=== PATIENT | male | born 1950 | race Caucasian/White ===

== ENCOUNTER → 2017-07-02 | Outpatient (CLI) | payer OTHER, MEDICARE ==
[~2017-07-02] MED LIST: AMBUNK PO; ASPI81TA21 PO; BUPR-79 PO; CLX20 PO; FENO145T26 PO; LISI-461 PO; MULT-506 PO
--- NOTE | 2017-07-02 13:59 | PULMONARY FUNCTION TEST ---
Pre-bronchodilator spirometry reveals a mild obstructive ventilatory defect even more pronounced at low lung volumes. There was a modest response to bronchodilator as evidenced by improved flow measured at low lung volumes. This may suggest the presence of early reversible airways disease. Lung volumes demonstrate evidence for significant hyperinflation and air trapping. Diffusion capacity was well within normal limits. Clinical correlation is needed.
== END | disposition home or self-care (01) ==
LOC: C.RC 09:46
PROVIDERS: ATTEND Family Medicine
DX: R06.09 Other forms of dyspnea (principal)

== ENCOUNTER 2017-09-14 10:52 | Inpatient (IN) | payer OTHER, MEDICARE ==
[~2017-09-14] VITALS: Ht 182.9 cm; Wt 99.6 kg
[~2017-09-14 10:52] MED LIST changes: +ASPI-319 PO; -ASPI81TA21 PO
[2017-09-14] MEDS ORDERED: METOPROLOL TARTRATE 1 MG/ML VIAL ONE (11:22)
--- NOTE | 2017-09-14 11:35 | EMERGENCY ROOM VISIT NOTE ---
History Report prepared by Blanka: Elsie Green Under the Supervision of: Dr. Balbina Nicholson M.D. First contact with patient: 11:13 Chief Complaint: PALPITATIONS Stated Complaint: SWEATING, FATIGUE, SOB, PALPITATIONS History of Present Illness The patient is a 67 year old male who presents to the Emergency Room with complaints of sudden palpitations beginning this morning. He also notes that for the past 3 weeks, the muscle underneath his right ear in his neck has been making it difficult for him to sleep due to the pain. He states he has low back pain, dizziness, fatigue, diaphoresis, wobbliness, and SOB but he has had this for the past 3 months. He denies feeling any butterflies in his chest. The patient reports that Dr. Frausto reported that he was in atrial flutter. Source of History: patient Onset: this morning Position: other (heart) Quality: other (palpitations) Timing: other (sudden) Associated Symptoms: + diaphoresis, + neck pain, + SOB, + back pain (low), + fatigue Note: Positive dizziness and wobbliness. Negative butterflies in his chest. Review of Systems See HPI for pertinent positives & negatives. A total of 10 systems reviewed and were otherwise negative. Past Medical & Surgical Medical Problems: (1) High blood pressure High blood pressure Family History Heart disease Kidney disease Seizure disorder Social History Smoking Status: Former Smoker Alcohol Use: occasionally Marital Status: Housing Status: lives with significant other Occupation Status: retired Current/Historical Medications Scheduled Aspirin Enteric Coated (Ecotrin Or Generic), 81 MG PO DAILY Bupropion (Wellbutrin Sr), 150 MG PO BID Citalopram Hydrobromide (Celexa), 1 TAB PO DAILY Lisinopril (Zestril), 10 MG PO DAILY Melatonin (Kp Melatonin), 1 TAB PO HS Metformin Hcl (Glucophage), 500 MG PO BID Miscellaneous Medications Pravastatin (Pravachol ), 20 MG PO Allergies Coded Allergies: No Known Allergies (Verified Allergy, Mild, 12/25/04) Physical Exam Vital Signs Date Time Temp Pulse Resp B/P (MAP) Pulse Ox O2 Delivery O2 Flow Rate FiO2 09/14/17 14:01 97 Room Air 09/14/17 13:42 78 16 122/80 97 Room Air 09/14/17 13:37 75 09/14/17 12:00 82 16 108/75 97 Nasal Cannula 2.0 09/14/17 11:32 88 18 111/60 97 Nasal Cannula 2.0 09/14/17 11:29 96 Room Air 09/14/17 11:25 115 141/71 09/14/17 11:17 133 09/14/17 10:56 36.4 133 18 115/68 97 Room Air Physical Exam Vital signs reviewed. General: Well-appearing male, in no significant distress. HEENT: No scleral icterus, PERRLA, neck supple. Atraumatic. Cardiovascular: Rapid and irregular rhythm. No extra sounds. Pulmonary: Clear to auscultation bilaterally, normal work of breathing. Abdomen: Soft, nontender, nondistended, positive bowel sounds. Musculoskeletal: Atraumatic, no peripheral edema. Discomfort to the left neck with palpation and rotation. No swelling or lymphadenopathy appreciated. Neurologic: Patient awake alert and oriented x 3, full strength in all 4 extremities. Cranial nerves 2 through 12 grossly intact. Skin: Warm, dry, no rash Medical Decision & Procedures ER Provider Diagnostic Interpretation: Radiology results as stated below per my review and radiologist interpretation: LUMBAR SPINE 5 VIEWS CLINICAL HISTORY: Low back pain. Right lower extremity radiculopathy. FINDINGS: 5 views of the lumbar spine are compared to study dated 12/05/2008. The skeletal structures are osteopenic. There is no radiographic evidence of acute fracture or malalignment. Vertebral body height and alignment are maintained throughout the lumbar spine. The transverse and spinous processes appear intact. Anterior and lateral marginal osteophytes are seen throughout. There is moderate disc space narrowing seen at all lumbar levels with multilevel degenerative endplate sclerosis. Mild facet arthropathy is seen in the lower lumbar region. There is no evidence of spondylolysis. The visualized bony pelvis appears intact. Mild sclerotic change is noted involving the sacroiliac joints. No bowel obstruction is seen. Surgical clips project over the left lower quadrant. Mild atherosclerotic calcification is seen in the abdominal aorta. IMPRESSION: 1. There is no acute bony abnormality identified involving the lumbar spine. 2. Osteopenia and spondylotic change as above. Dictated: 09/14/2017 12:53 PM Transcribed: 09/14/2017 1:20 PM [email or web address] Electronically signed by: Piotr Park M.D. 09/14/2017 1:23 PM CHEST 2 VIEWS ROUTINE CLINICAL HISTORY: 67 years-old Male presenting with new onset atrial fib, right-sided lumbar radiculopathy. TECHNIQUE: PA and lateral views of the chest were obtained. COMPARISON: 08/30/2009. FINDINGS: Atherosclerosis of the aortic arch. Cardiac silhouette normal in size. Lungs and pleural spaces clear. Degenerative changes of the thoracic spine. Upper abdomen normal. IMPRESSION: 1. No acute cardiopulmonary disease. Electronically signed by: Prakash Sanchez M.D. 09/14/2017 12:55 PM C-SPINE ROUTINE 4 OR 5 VIEWS CLINICAL HISTORY: Severe right-sided neck pain. COMPARISON STUDY: CT of the cervical spine October 05, 2011. FINDINGS: Alignment of the cervical spine is anatomic. Vertebral body heights are maintained. There is no fracture or suspicious lesion. The inferior endplate of C7 is slightly obscured. There is moderate disc space narrowing and osteophytosis at C3-C4, C4-C5 and C5-C6 and C6-C7. Moderate to severe multilevel bony neural foraminal narrowing is noted, most pronounced at the right C4-C5 and C5-C6 neural foramen. IMPRESSION: 1. No acute cervical spine fracture or subluxation. 2. Moderate multilevel disc space narrowing and osteophytosis and moderate to severe multilevel bony neural foraminal narrowing, as described above. Electronically signed by: Nate Payan M.D. 09/14/2017 12:56 PM Laboratory Results Test 09/14/17 11:14 09/14/17 12:45 Prothrombin Time 10.7 SECONDS (9.0-12.0) Prothromb Time International Ratio 1.0 (0.9-1.1) Activated Partial Thromboplast Time 25.8 SECONDS (21.0-31.0) Partial Thromboplastin Ratio 1.0 Magnesium Level 1.9 mg/dl (1.8-2.4) Total Bilirubin 1.3 mg/dl (0.2-1) Direct Bilirubin 0.2 mg/dl (0-0.2) Aspartate Amino Transf (AST/SGOT) 17 U/L (15-37) Alanine Aminotransferase (ALT/SGPT) 20 U/L (12-78) Alkaline Phosphatase 59 U/L (45-117) Total Protein 7.1 gm/dl (6.4-8.2) Albumin 3.5 gm/dl (3.4-5.0) Thyroid Stimulating Hormone (TSH) 2.560 uIu/ml (0.300-4.500) Hepatitis C Antibody Screen NEG (NEG) Urine Color YELLOW Urine Appearance CLEAR (CLEAR) Urine pH 5.0 (4.5-7.5) Urine Specific [place] 1.020 (1.000-1.030) Urine Protein NEG (NEG) Urine Glucose (UA) 3+ (NEG) Urine Ketones NEG (NEG) Urine Occult Blood NEG (NEG) Urine Nitrite NEG (NEG) Urine Bilirubin NEG (NEG) Urine Urobilinogen NEG (NEG) Urine Leukocyte Esterase TRACE (NEG) Urine WBC (Auto) 1-5 /hpf (0-5) Urine RBC (Auto) 0-4 /hpf (0-4) Urine Hyaline Casts (Auto) 1-5 /lpf (0-5) Urine Epithelial Cells (Auto) 0-5 /lpf (0-5) Urine Bacteria (Auto) NEG (NEG) Laboratory results per my review. Medications Administered Medications (Trade) Dose Ordered Sig/Lili Route Start Time Stop Time Status Last Admin Dose Admin Metoprolol Tartrate (Lopressor Iv) 5 mg STK-MED ONCE .ROUTE 09/14/17 11:22 09/14/17 11:23 DC 09/14/17 11:25 5 MG Sodium Chloride 1,000 ml @ 125 mls/hr Q8H STAT IV 09/14/17 11:51 09/14/17 16:56 DC 09/14/17 11:51 125 MLS/HR Acetaminophen/ Hydrocodone Bitart ([place] 7.5/325 Tab) 1 tab NOW STAT PO 09/14/17 13:51 09/14/17 13:53 DC 09/14/17 13:51 1 TAB Cyclobenzaprine HCl (Flexeril Tab) 5 mg NOW STAT PO 09/14/17 13:51 09/14/17 13:53 DC 09/14/17 13:51 5 MG Acetaminophen (Tylenol Tab) 650 mg Q4H PRN PO 09/14/17 15:00 10/14/17 14:59 09/15/17 08:14 650 MG Miscellaneous Information (Dc All Previously Ordered Diabetes Meds) 1 ea ONE ONCE N/A 09/14/17 15:00 09/14/17 15:53 DC 09/14/17 19:35 1 EA ECG Per My Interpretation Indication: palpitations Rate (beats per minute): 127 Rhythm: atrial flutter Findings: other (variable AV block, ST and T wave abnormality, QTC is 470 ) ED Course 1122: Ordered Metoprolol Tartrate 5 mg IV 1124: Past medical records reviewed. The patient was evaluated in room C2. A complete history and physical examination was performed. 1151: Ordered Sodium Chloride 1000 ml @ 125 mls/hr IV 1351: Ordered Flexeril Tab 5 mg PO, Hydrocodone Bitart/Acetaminophen 1 tab PO 1422: I reviewed the patient's case with Dr. Ebony Ordonez [facility] Hospitalist. She will evaluate the patient for further management. Medical Decision Differential diagnosis: Etiologies such as premature contractions, electrolyte abnormality, cardiac dysrhythmia, thyroid dysfunction, pulmonary embolism, infection, gastrointestinal, as well as others were entertained. This patient was evaluated and appeared to be in no significant distress. IV access was obtained and laboratory work was drawn. The patient was placed on the cardiac technician and found to be in rapid atrial flutter. EKG was performed to confirm this suspicion. Patient was given 5 mg of IV metoprolol with good rate control. Laboratory work is fairly unrevealing including cardiac enzymes. Chest x-ray was performed and reveals no evidence of consolidation or significant vascular congestion. Cervical and lumbar x-rays were performed and are read as above. There is significant degenerative change of the cervical spine which is likely contributing to the patient's discomfort. I see no obvious source for infection at this time. Patient remained fairly rate controlled with just and he will be evaluated for further management. The initial dose of IV metoprolol. Case was discussed with the hospitalist service patient and are aware of the plan and agree. Medication Reconcilliation Current Medication List: was personally reviewed by me Blood Pressure Screening Patient's blood pressure: Normal blood pressure Blood pressure disposition: Did not require urgent referral Consults Time Called: 1416 Consulting Physician: Dr. Ebony Ordonez [facility] Hospitalist Returned Call: [phone] I reviewed the patient's case with Dr. Ebony Ordonez, [facility] Hospitalist. She will evaluate the patient for further management. Impression Primary Impression: New onset atrial flutter Additional Impression: Cervical radiculopathy due to degenerative joint disease of spine Scribe Attestation The scribe's documentation has been prepared under my direction and personally reviewed by me in its entirety. I confirm that the note above accurately reflects all work, treatment, procedures, and medical decision making performed by me. Departure Information Dispostion Being Evaluated By Hospitalist (Dr. Ebony Ordonez, [facility] Hospitalist) Referrals Alaina Frausto M.D. (PCP) Patient Instructions My [facility] Problem Qualifiers
[2017-09-14] MEDS ORDERED: SODIUM CHLORIDE 0.9% 1000ML 1,000 ML IV STA (11:51)
[2017-09-14 12:03] LABS: BASO % 0.8 %; BASO ABS # 0.05 K/uL (0-0.2); EOS % 1.5 %; HEMATOCRIT 42.3 % (42-52); HEMOGLOBIN 15.5 g/dL (14.0-18.0); IG# 0.01 K/uL (0.00-0.02); LYMPH ABS # 1.51 K/uL (1.2-3.4); MEAN CELL VOLUME 90.2 fL (80-100); MEAN CORPUSCULAR HGB CONC 36.6 g/dl (32-36); MONO % 6.6 %; MONO ABS # 0.43 K/uL (0.11-0.59); NEUT % 67.9 %; NEUT ABS # 4.46 K/uL (1.4-6.5); PLATELET COUNT 225 K/uL (130-400); RED CELL DISTRIBUTION WIDTH SD 42.3 fL (36.4-46.3); WHITE BLOOD COUNT 6.56 K/uL (4.8-10.8)
[2017-09-14] MEDS ORDERED: GLC/500 PO (12:07)
[2017-09-14] MEDS ORDERED: CITA10TA8 PO (12:07)
[2017-09-14] MEDS ORDERED: PRAV20TA PO (12:07)
[2017-09-14] MEDS ORDERED: MELA1TAB5 PO (12:07)
[2017-09-14 12:25] LABS: ALBUMIN 3.5 gm/dl (3.4-5.0); ALKALINE PHOSPHATASE 59 U/L (45-117); ALT/SGPT 20 U/L (12-78); AST/SGOT 17 U/L (15-37); BLOOD UREA NITROGEN 15 mg/dl (7-18); CALCIUM 8.5 mg/dl (8.5-10.1); CARBON DIOXIDE 24 mmol/L (21-32); CREATININE 1.31 mg/dl (0.60-1.40); GLUCOSE 233 mg/dl (70-99); POTASSIUM 4.1 mmol/L (3.5-5.1); SODIUM 137 mmol/L (136-145); TOTAL PROTEIN 7.1 gm/dl (6.4-8.2)
--- NOTE | 2017-09-14 12:56 | DIAGNOSTIC IMAGING REPORT ---
CHEST 2 VIEWS ROUTINE CLINICAL HISTORY: 67 years-old Male presenting with new onset atrial fib, right-sided lumbar radiculopathy. TECHNIQUE: PA and lateral views of the chest were obtained. COMPARISON: 08/30/2009. FINDINGS: Atherosclerosis of the aortic arch. Cardiac silhouette normal in size. Lungs and pleural spaces clear. Degenerative changes of the thoracic spine. Upper abdomen normal. IMPRESSION: 1. No acute cardiopulmonary disease. Electronically signed by: Prakash Sanchez M.D. 09/14/2017 12:55 PM Dictated Date/Time: 09/14/2017 12:52 PM
--- NOTE | 2017-09-14 12:58 | DIAGNOSTIC IMAGING REPORT ---
C-SPINE ROUTINE 4 OR 5 VIEWS CLINICAL HISTORY: Severe right-sided neck pain. COMPARISON STUDY: CT of the cervical spine October 05, 2011. FINDINGS: Alignment of the cervical spine is anatomic. Vertebral body heights are maintained. There is no fracture or suspicious lesion. The inferior endplate of C7 is slightly obscured. There is moderate disc space narrowing and osteophytosis at C3-C4, C4-C5 and C5-C6 and C6-C7. Moderate to severe multilevel bony neural foraminal narrowing is noted, most pronounced at the right C4-C5 and C5-C6 neural foramen. IMPRESSION: 1. No acute cervical spine fracture or subluxation. 2. Moderate multilevel disc space narrowing and osteophytosis and moderate to severe multilevel bony neural foraminal narrowing, as described above. Electronically signed by: Nate Payan M.D. 09/14/2017 12:56 PM Dictated Date/Time: 09/14/2017 12:52 PM
--- NOTE | 2017-09-14 13:21 | DIAGNOSTIC IMAGING REPORT ---
LUMBAR SPINE 5 VIEWS CLINICAL HISTORY: Low back pain. Right lower extremity radiculopathy. FINDINGS: 5 views of the lumbar spine are compared to study dated 12/05/2008. The skeletal structures are osteopenic. There is no radiographic evidence of acute fracture or malalignment. Vertebral body height and alignment are maintained throughout the lumbar spine. The transverse and spinous processes appear intact. Anterior and lateral marginal osteophytes are seen throughout. There is moderate disc space narrowing seen at all lumbar levels with multilevel degenerative endplate sclerosis. Mild facet arthropathy is seen in the lower lumbar region. There is no evidence of spondylolysis. The visualized bony pelvis appears intact. Mild sclerotic change is noted involving the sacroiliac joints. No bowel obstruction is seen. Surgical clips project over the left lower quadrant. Mild atherosclerotic calcification is seen in the abdominal aorta. IMPRESSION: 1. There is no acute bony abnormality identified involving the lumbar spine. 2. Osteopenia and spondylotic change as above. Dictated: 09/14/2017 12:53 PM Transcribed: 09/14/2017 1:20 PM [email or web address] Electronically signed by: Piotr Park M.D. 09/14/2017 1:23 PM Dictated Date/Time: 09/14/2017 12:53 PM
[2017-09-14] MEDS ORDERED: HYDROCODONE/ACETAMINOPHEN 7.5/325MG TAB PO STA (13:51)
[2017-09-14] MEDS ORDERED: CYCLOBENZAPRINE HCL 10 MG TAB PO STA (13:51)
[2017-09-14 14:01] VITALS: O2SAT 97; BMI 29.9
[2017-09-14] MEDS ORDERED: ONDANSETRON INJ 2 MG/ML 2 ML VIAL IV PRN (15:00)
[2017-09-14] MEDS ORDERED: DC ALL PREVIOUSLY ORDERED DIABETES MEDS ONE (15:00)
[2017-09-14] MEDS ORDERED: GLUCOSE 40% GEL 15 GM TUBE PO PRN (15:00)
[2017-09-14] MEDS ORDERED: GLUCOSE 10 TABS/TUBE PO PRN (15:00)
[2017-09-14] MEDS ORDERED: DEXTROSE 50% 50 ML SYR IV PRN (15:00)
[2017-09-14] MEDS ORDERED: CARBOHYDRATES FOR HYPOGLYCEMIA PO PRN (15:00)
[2017-09-14] MEDS ORDERED: GLUCAGON FOR INJ 1 MG VIAL SQ PRN (15:00)
--- NOTE | 2017-09-14 15:30 | History and Physical ---
History & Physical Date & Time of Service: September 14, 2017 at 15:05 Chief Complaint: Sweating, Fatigue, Sob, Palpitations Primary Care Physician: Alaina Frausto M.D. History of Present Illness Source: patient Patient is a pleasant 67yo male with history of newly diagnosed DM, HTN, HLP presenting today with new onset atrial flutter. Patient states that this morning he was standing at the sink doing dishes when he had a sudden wave of fatigue/SOB/dizziness and lethargy. No associated CP, no LOC/syncope. Patient had a routine appointment with his PCP this AM during which an EKG was obtained that confirmed new onset atrial flutter. The patient was transferred to [facility] for further management. Patient presently complaining only of fatigue. No CP/ palpitations or SOB. No dizziness or presyncope. ER Course: [place] 7.5mg, Flexeril 5mg, Metoprolol 5mg IV Past Medical/Surgical History Medical Problems: 1. Diabetes - newly diagnosed, AIC=5.6 2. HTN 3. HLP 4. Diverticulitis 5. CHRISTIAN 6. Low back pain, neck pain Surgical History: Colostomy for bowel perforation s/p takedown Exploratory laparotomy Left wrist surgery Family History Heart disease Kidney disease Seizure disorder Social History Smoking Status: Former Smoker Smokeless Tobacco Use: No Alcohol Use: socially Drug Use: none Marital Status: Housing status: lives with significant other Occupational Status: retired Immunizations History of Influenza Vaccine: Yes Influenza Vaccine Date: Mar 13, 2005 History of Tetanus Vaccine?: Yes Tetanus Immunization Date: Aug 11, 2000 History of Pneumococcal: No History of Hepatitis B Vaccine: No Allergies Coded Allergies: No Known Allergies (Verified Allergy, Mild, 12/25/04) Home Medications Scheduled Aspirin Enteric Coated (Ecotrin Or Generic), 81 MG PO DAILY Bupropion (Wellbutrin Sr), 150 MG PO BID Citalopram Hydrobromide (Celexa), 1 TAB PO DAILY Lisinopril (Zestril), 10 MG PO DAILY Melatonin (Kp Melatonin), 1 TAB PO HS Metformin Hcl (Glucophage), 500 MG PO BID Miscellaneous Medications Pravastatin (Pravachol ), 20 MG PO Review of Systems Constitutional: + fatigue, No fever, No chills, No weight loss Eyes: No worsening of vision, No diplopia ENT: No hearing loss, No sore throat, No trouble swallowing Respiratory: No cough, No shortness of breath, No dyspnea on exertion Cardiovascular: No chest pain, No orthopnea, No edema, No palpitations Abdomen: No pain, No nausea, No vomiting, No diarrhea, No constipation Musculoskeletal: + joint pain, + muscle pain Genitourinary - Male: No hematuria, No dysuria Neurologic: No weakness Endocrine: + fatigue Hematologic / Lymphatic: No abnormal bleeding/bruising, No clotting problems Integumentary: No rash, No itch Physical Exam Vital Signs Date Time Temp Pulse Resp B/P (MAP) Pulse Ox O2 Delivery O2 Flow Rate FiO2 09/14/17 14:01 97 Room Air 09/14/17 13:42 78 16 122/80 97 Room Air 09/14/17 13:37 75 09/14/17 12:00 82 16 108/75 97 Nasal Cannula 2.0 09/14/17 11:32 88 18 111/60 97 Nasal Cannula 2.0 09/14/17 11:29 96 Room Air 09/14/17 11:25 115 141/71 09/14/17 11:17 133 09/14/17 10:56 36.4 133 18 115/68 97 Room Air General Appearance: WD/WN, no apparent distress Head: normocephalic, atraumatic Eyes: normal inspection, PERRL, EOMI, sclerae normal ENT: normal ENT inspection, pharynx normal Neck: supple, no adenopathy, thyroid normal, no JVD, no carotid bruits, trachea midline Respiratory/Chest: chest non-tender, lungs clear, normal breath sounds, no respiratory distress, no accessory muscle use Cardiovascular: no edema, no gallop, no JVD, no murmur, normal peripheral pulses, + irregularly irregular Abdomen/GI: normal bowel sounds, non tender, soft, no organomegaly Back: normal inspection Extremities/Musculoskelatal: normal inspection, no calf tenderness, normal capillary refill, no pedal edema Neurologic/Psych: no motor/sensory deficits, alert, oriented x 3 Skin: normal color, warm/dry, no rash Diagnostics Laboratory Results Results Past 24 Hours Test 09/14/17 11:14 09/14/17 12:45 09/14/17 14:16 Range/Units White Blood Count 6.56 4.8-10.8 K/uL Red Blood Count 4.69 4.7-6.1 M/uL Hemoglobin 15.5 14.0-18.0 g/dL Hematocrit 42.3 42-52 % Mean Corpuscular Volume 90.2 80-100 fL Mean Corpuscular Hemoglobin 33.0 25-34 pg Mean Corpuscular Hemoglobin Concent 36.6 32-36 g/dl Platelet Count 225 130-400 K/uL Mean Platelet Volume 10.0 7.4-10.4 fL Neutrophils (%) (Auto) 67.9 % Lymphocytes (%) (Auto) 23.0 % Monocytes (%) (Auto) 6.6 % Eosinophils (%) (Auto) 1.5 % Basophils (%) (Auto) 0.8 % Neutrophils # (Auto) 4.46 1.4-6.5 K/uL Lymphocytes # (Auto) 1.51 1.2-3.4 K/uL Monocytes # (Auto) 0.43 0.11-0.59 K/uL Eosinophils # (Auto) 0.10 0-0.5 K/uL Basophils # (Auto) 0.05 0-0.2 K/uL RDW Standard Deviation 42.3 36.4-46.3 fL RDW Coefficient of Variation 13.0 11.5-14.5 % Immature Granulocyte % (Auto) 0.2 % Immature Granulocyte # (Auto) 0.01 0.00-0.02 K/uL Sodium Level 137 136-145 mmol/L Potassium Level 4.1 3.5-5.1 mmol/L Chloride Level 104 98-107 mmol/L Carbon Dioxide Level 24 21-32 mmol/L Anion Gap 9.0 3-11 mmol/L Blood Urea Nitrogen 15 7-18 mg/dl Creatinine 1.31 0.60-1.40 mg/dl Est Creatinine Clear Calc Drug Dose 65.2 ml/min Estimated GFR () 63.9 Estimated GFR (Non- 55.2 BUN/Creatinine Ratio 11.5 10-20 Random Glucose 233 70-99 mg/dl Calcium Level 8.5 8.5-10.1 mg/dl Magnesium Level 1.9 1.8-2.4 mg/dl Total Bilirubin 1.3 0.2-1 mg/dl Direct Bilirubin 0.2 0-0.2 mg/dl Aspartate Amino Transf (AST/SGOT) 17 15-37 U/L Alanine Aminotransferase (ALT/SGPT) 20 12-78 U/L Alkaline Phosphatase 59 45-117 U/L Troponin I < 0.015 0-0.045 ng/ml Total Protein 7.1 6.4-8.2 gm/dl Albumin 3.5 3.4-5.0 gm/dl Thyroid Stimulating Hormone (TSH) 2.560 0.300-4.500 uIu/ml Urine Color YELLOW Urine Appearance CLEAR CLEAR Urine pH 5.0 4.5-7.5 Urine Specific [place] 1.020 1.000-1.030 Urine Protein NEG NEG Urine Glucose (UA) 3+ NEG Urine Ketones NEG NEG Urine Occult Blood NEG NEG Urine Nitrite NEG NEG Urine Bilirubin NEG NEG Urine Urobilinogen NEG NEG Urine Leukocyte Esterase TRACE NEG Urine WBC (Auto) 1-5 0-5 /hpf Urine RBC (Auto) 0-4 0-4 /hpf Urine Hyaline Casts (Auto) 1-5 0-5 /lpf Urine Epithelial Cells (Auto) 0-5 0-5 /lpf Urine Bacteria (Auto) NEG NEG Diagnostic Radiology CHEST 2 VIEWS ROUTINE CLINICAL HISTORY: 67 years-old Male presenting with new onset atrial fib, right-sided lumbar radiculopathy. TECHNIQUE: PA and lateral views of the chest were obtained. COMPARISON: 08/30/2009. FINDINGS: Atherosclerosis of the aortic arch. Cardiac silhouette normal in size. Lungs and pleural spaces clear. Degenerative changes of the thoracic spine. Upper abdomen normal. IMPRESSION: 1. No acute cardiopulmonary disease. Electronically signed by: Prakash Sanchez M.D. 09/14/2017 12:55 PM Dictated Date/Time: 09/14/2017 12:52 PM C-SPINE ROUTINE 4 OR 5 VIEWS CLINICAL HISTORY: Severe right-sided neck pain. COMPARISON STUDY: CT of the cervical spine October 05, 2011. FINDINGS: Alignment of the cervical spine is anatomic. Vertebral body heights are maintained. There is no fracture or suspicious lesion. The inferior endplate of C7 is slightly obscured. There is moderate disc space narrowing and osteophytosis at C3-C4, C4-C5 and C5-C6 and C6-C7. Moderate to severe multilevel bony neural foraminal narrowing is noted, most pronounced at the right C4-C5 and C5-C6 neural foramen. IMPRESSION: 1. No acute cervical spine fracture or subluxation. 2. Moderate multilevel disc space narrowing and osteophytosis and moderate to severe multilevel bony neural foraminal narrowing, as described above. Electronically signed by: Nate Payan M.D. 09/14/2017 12:56 PM LUMBAR SPINE 5 VIEWS CLINICAL HISTORY: Low back pain. Right lower extremity radiculopathy. FINDINGS: 5 views of the lumbar spine are compared to study dated 12/05/2008. The skeletal structures are osteopenic. There is no radiographic evidence of acute fracture or malalignment. Vertebral body height and alignment are maintained throughout the lumbar spine. The transverse and spinous processes appear intact. Anterior and lateral marginal osteophytes are seen throughout. There is moderate disc space narrowing seen at all lumbar levels with multilevel degenerative endplate sclerosis. Mild facet arthropathy is seen in the lower lumbar region. There is no evidence of spondylolysis. The visualized bony pelvis appears intact. Mild sclerotic change is noted involving the sacroiliac joints. No bowel obstruction is seen. Surgical clips project over the left lower quadrant. Mild atherosclerotic calcification is seen in the abdominal aorta. IMPRESSION: 1. There is no acute bony abnormality identified involving the lumbar spine. 2. Osteopenia and spondylotic change as above. Dictated: 09/14/2017 12:53 PM Transcribed: 09/14/2017 1:20 PM [place] Electronically signed by: Piotr Park M.D. 09/14/2017 1:23 PM EKG The study demonstrates atrial flutter with variable block, possible ST changes. Impression Assessment and Plan 67yo male with new onset atrial flutter 1. Atrial flutter - new onset, presently rate controlled and asymptomatic, hemodynamically stable s/p Metoprolol 5mg IV administered in ER. Patient reports similar episodes of fatigue/SOB and dizziness over the past 6-8 months that have become more frequent and longer lasting recently. I suspect these events were episodes of PAF/Flutter. -Observation with telemetry -Trend cardiac enzymes x 3 sets -TSH and electrolytes WNL -Check 2D echocardiogram -Metoprolol 25mg po BID, will increase as needed for rate control and transition to XL for discharge if appropriate rate control -Anticoagulation with Xarelto - patient denies bleeding issues, no history of frequent falls, no contraindications to anticoagulation -Consultation with Cardiology - patients is know to Dr. Moreno and he is requesting that he be seen by him 2. Hypertension - patient presently normotensive. -Continue Lisinopril -Continue to monitor 3. Diabetes - newly diagnosed, well controlled with diet and Metformin 500mg po BID -hold Metformin while NPO -ISS with blood sugar checks qPM and qAC 4. Hyperlipidemia -Continue Pravastatin 5. Neck pain - imaging suggestive of OA, no neurologic defecits -Pain control with Tylenol and Flexeril PRN -Ice pack and heating pad 6. F/E/N - heplock, monitor electrolytes and replete as needed, AHA/Diabetic diet as tolerated 7. Code - Full per discussion with patient 8. Dispo - Observation with telemetry Advanced Directives Existing Living Will: No Existing Power of Size Worker: No Resuscitation Status FULL VTE Prophylaxis Will order VTE Prophylaxis: No Reason for no VTE drug order: Treatment not indicated Reason no Mechanical VTE Order: Treatment not indicated
[2017-09-14 15:43] LABS: PTT PATIENT 25.8 SECONDS (21.0-31.0)
[2017-09-14] MEDS ORDERED: IV FLUIDS COMPLETED PRN (16:00)
[2017-09-14 16:10] VITALS: Ht 182.9 cm; Wt 99.6 kg
[2017-09-14] MEDS ORDERED: RIVAROXABAN 10 MG TAB PO SCH (16:15)
--- NOTE | 2017-09-14 16:31 | ECHOCARDIOGRAM REPORT ---
*NOTICE TO RECEIVING CONSTITUTION PARTY AGENCY This information is strictly Confidential and protected under [place] law. [place] law prohibits you from making any further disclosure of this information unless further disclosure is expressly permitted by the written consent of the person to whom it pertains or is authorized by law. A general authorization for the release of medical or other information is not sufficient for this purpose. Hospital accepts no responsibility if the information is made available to any other person, INCLUDING THE PATIENT. Interpretation Summary * Name: JOHN TOMLIN Study Date: 09/14/2017 03:22 PM BP: 122/80 mmHg * Patient Location: [facility] HR: 75 * : 1950 (M/d/yyyy) Gender: Male Height: 71 in * Age: 67 yrs Ethnicity: CA Weight: 220 lb * Ordering Physician: Ebony Ordonez * Referring Physician: Alaina Frausto * Performed By: Tracy Mckenna RDCS * * Reason For Study: A-FLUTTER * BSA: 2.2 m2 * -- Conclusions -- * 1. Normal LV size. Borderline concentric LVH. * 2. Normal LV systolic function. LVEF 55-60 %. No regional wall motion abnormalities. * 3. Normal RV size and function. * 4. Trace mitral regurgitation * 5. Mild left atrial enlargement * 6. Compared with prior study on 03/21/2015: Atrial fibrillation is, no other significant changes. Procedure Details * A complete two-dimensional transthoracic echocardiogram was performed (2D, M-mode, Doppler and color flow Doppler). Left Ventricle * The left ventricle is grossly normal size. * There is borderline concentric left ventricular hypertrophy. * Ejection Fraction = 60-65%. * No regional wall motion abnormalities noted. Right Ventricle * The right ventricle is not well visualized. * The right ventricle is grossly normal size. * The right ventricular systolic function is normal. Atria * The left atrium is mildly dilated. * Right atrial size is normal. * No ASD detected; PFO is not assessed. Mitral Valve * The mitral valve is grossly normal. * There is no mitral valve stenosis. * There is trace mitral regurgitation. Tricuspid Valve * Significant tricuspid regurgitation is absent. Aortic Valve * The aortic valve opens well. * No hemodynamically significant valvular aortic stenosis. * There is no significant aortic regurgitation. Pulmonic Valve * The pulmonary valve is inadequately visualized, but the Doppler data is adequate for interpretation. * Pulmonic stenosis is absent. * There is no significant pulmonary regurgitation. Great Vessels * The aortic root and proximal ascending aorta are normal sized. Pericardium/Pleural * There is no pericardial effusion. MMode 2D Measurements and Calculations IVSd 1.2 cm IVSs 1.6 cm LVIDd 4.2 cm LVIDs 2.5 cm LVPWd 1.1 cm LVPWs 1.9 cm IVS/LVPW 1.1 FS 41.3 % EDV(Teich) 78.8 ml ESV(Teich) 21.7 ml EF(Teich) 72.5 % EDV(cubed) 74.3 ml ESV(cubed) 15.1 ml EF(cubed) 79.7 % % IVS thick 35.6 % % LVPW thick 75.1 % LV mass(C)d 165.4 grams LV mass(C)dI 75.3 grams/m\S\2 LV mass(C)s 166.3 grams LV mass(C)sI 75.7 grams/m\S\2 SV(Teich) 57.1 ml SI(Teich) 26.0 ml/m\S\2 SV(cubed) 59.3 ml SI(cubed) 27.0 ml/m\S\2 ACS 1.7 cm LA dimension 4.2 cm asc Aorta Diam 3.4 cm LVOT diam 2.0 cm LVOT area 3.0 cm\S\2 LVAd ap4 35.9 cm\S\2 LVLd ap4 8.2 cm EDV(MOD-sp4) 131.3 ml EDV(sp4-el) 133.2 ml LVAs ap4 17.4 cm\S\2 LVLs ap4 6.9 cm ESV(MOD-sp4) 40.0 ml ESV(sp4-el) 37.2 ml EF(MOD-sp4) 69.5 % EF(sp4-el) 72.1 % LVAd ap2 36.0 cm\S\2 LVLd ap2 7.7 cm EDV(MOD-sp2) 143.8 ml EDV(sp2-el) 142.3 ml LVAs ap2 18.3 cm\S\2 LVLs ap2 6.5 cm ESV(MOD-sp2) 45.8 ml ESV(sp2-el) 44.1 ml EF(MOD-sp2) 68.1 % EF(sp2-el) 69.0 % LVLd %diff -6.28 % EDV(MOD-bp) 140.8 ml LVLs %diff -6.83 % ESV(MOD-bp) 43.9 ml EF(MOD-bp) 68.8 % SV(MOD-sp4) 91.2 ml SI(MOD-sp4) 41.5 ml/m\S\2 SV(MOD-sp2) 98.0 ml SI(MOD-sp2) 44.6 ml/m\S\2 SV(MOD-bp) 96.9 ml SI(MOD-bp) 44.1 ml/m\S\2 SV(sp4-el) 96.0 ml SI(sp4-el) 43.7 ml/m\S\2 SV(sp2-el) 98.1 ml SI(sp2-el) 44.7 ml/m\S\2 Doppler Measurements and Calculations MV E max yuri 88.4 cm/sec MV A max yuri 43.7 cm/sec MV E/A 2.0 MV dec time 0.18 sec Ao V2 max 124.6 cm/sec Ao max PG 6.2 mmHg Ao max PG (full) 3.2 mmHg CAMRYN(V,A) 2.1 cm\S\2 CAMRYN(V,D) 2.1 cm\S\2 LV V1 max PG 3.0 mmHg LV V1 max 86.8 cm/sec PA V2 max 63.1 cm/sec PA max PG 1.6 mmHg TR max yuri 198.1 cm/sec
[2017-09-14 17:00] VITALS: BP 118/80; PULSE 74; TEMP 36.5; O2SAT 96
[2017-09-14] MEDS: ACETAMINOPHEN 325 MG TAB PO PRN (17:58)
[2017-09-14] MEDS ORDERED: NURSING VERBAL MED ORDER ONE (18:45)
[2017-09-14] MEDS: INSULIN ASPART 100 UNITS/ML 3 ML PEN SC SCH ×2 (19:06→21:34)
[2017-09-14 19:37] VITALS: BP 137/88; PULSE 78; TEMP 36.8; O2SAT 97
[2017-09-14 20:00] VITALS: O2SAT 96
[2017-09-14] MEDS ORDERED: ZOLPIDEM TARTRATE 5 MG TAB PO PRN (20:15)
[2017-09-14] MEDS ORDERED: NON-FORMULARY MEDICATION (Melatonin (Kp Melatonin) 1 TAB) PO SCH (21:00)
[2017-09-14] MEDS: METOPROLOL TARTRATE 50 MG TAB PO SCH (21:28)
[2017-09-14] MEDS: BuPROPion SR 150 MG TABCR PO SCH (21:28)
[2017-09-14 23:54] VITALS: BP 123/86; PULSE 75; TEMP 36.7; O2SAT 97
[2017-09-15 04:01] VITALS: BP 125/84; PULSE 75; TEMP 36.4; O2SAT 97
[2017-09-15 06:59] LABS: BASO % 1.1 %; BASO ABS # 0.08 K/uL (0-0.2); EOS % 2.8 %; EOS ABS # 0.21 K/uL (0-0.5); HEMATOCRIT 44.4 % (42-52); HEMOGLOBIN 16.3 g/dL (14.0-18.0); IG# 0.02 K/uL (0.00-0.02); LYMPH % 29.9 %; LYMPH ABS # 2.22 K/uL (1.2-3.4); MEAN CELL VOLUME 90.8 fL (80-100); MEAN CORPUSCULAR HEMOGLOBIN 33.3 pg (25-34); MEAN CORPUSCULAR HGB CONC 36.7 g/dl (32-36); MEAN PLATELET VOLUME 9.6 fL (7.4-10.4); MONO % 7.8 %; MONO ABS # 0.58 K/uL (0.11-0.59); NEUT % 58.1 %; NEUT ABS # 4.31 K/uL (1.4-6.5); PLATELET COUNT 232 K/uL (130-400); RED CELL DISTRIBUTION WIDTH CV 13.1 % (11.5-14.5); RED CELL DISTRIBUTION WIDTH SD 43.3 fL (36.4-46.3); WHITE BLOOD COUNT 7.42 K/uL (4.8-10.8)
[2017-09-15 07:09] VITALS: BP 126/84; PULSE 75; TEMP 37; O2SAT 98
[2017-09-15 07:37] LABS: BLOOD UREA NITROGEN 14 mg/dl (7-18); CALCIUM 8.9 mg/dl (8.5-10.1); CARBON DIOXIDE 28 mmol/L (21-32); CREATININE 1.25 mg/dl (0.60-1.40); GLUCOSE 124 mg/dl (70-99); POTASSIUM 4.5 mmol/L (3.5-5.1); SODIUM 139 mmol/L (136-145)
[2017-09-15] MEDS: INSULIN ASPART 100 UNITS/ML 3 ML PEN SC SCH ×2 (08:06→11:00)
[2017-09-15] MEDS: BuPROPion SR 150 MG TABCR PO SCH (08:08)
[2017-09-15] MEDS: METOPROLOL TARTRATE 50 MG TAB PO SCH (08:09)
[2017-09-15] MEDS: ACETAMINOPHEN 325 MG TAB PO PRN (08:14)
[2017-09-15] MEDS ORDERED: CYCLOBENZAPRINE HCL 5 MG TAB PO SCH (09:00)
[2017-09-15] MEDS ORDERED: LISINOPRIL 10 MG TAB PO SCH (09:00)
[2017-09-15] MEDS ORDERED: CITALOPRAM 20 MG TAB PO SCH (09:00)
[2017-09-15] MEDS ORDERED: PRAVASTATIN SOD 20 MG TAB PO SCH (09:00)
[2017-09-15] MEDS ORDERED: ASPIRIN 81 MG ECTAB PO SCH (09:00)
--- NOTE | 2017-09-15 10:54 | Cardiology Consultation ---
Cardiology Consultation Date of Consultation: September 15, 2017. Requesting Physician: José Luis Reason for Consultation: Atrial flutter Pt evaluation today including: conversation w/ patient, physical exam, lab review, review of studies, review of inpatient medication list, conversation w/ attending History of Present Illness This is a very pleasant 67-year-old gentleman with a history of hypertension, hyperlipidemia and at least prediabetes who I know from taking care of his common-law . He does not have a history of atrial arrhythmias to his knowledge, however he has had a year to year and a half of feeling fatigued and increased short of breath with exertion, but has been evaluated in that time for various things and almost certainly was not in atrial fibrillation for that length of time. He had a distinct change in his symptoms on the morning of 09/14, he felt a wave of fatigue, lightheadedness and shortness of breath occurring while washing dishes that morning. He went upstairs, the symptoms did not resolve and he happened to have an appointment with his family physician that day who observed that he was in atrial flutter and sent him to the ER. In the emergency room he was noted to be in atrial flutter with a rapid heart rate, he was treated with Xarelto which was started on the evening of September 14, 2017 (within 12 hours of presumed onset) and he was started on metoprolol. At the time of my evaluation he feels quite well. He has a little bit of shortness of breath, but does not feel much different than he has recently. I had him walk around the [place] with me and his heart rate did not increase significantly and he felt quite well and was walking briskly. He has not had any chest discomfort, he does not have orthopnea or PND. An echocardiogram shows some left ventricular hypertrophy but normal left ventricular function and no valvular abnormalities. He is having no bleeding after 1 dose of Xarelto. Past Medical/Surgical History (1) Cervical radiculopathy due to degenerative joint disease ofspine (2) High blood pressure Family History Heart disease Kidney disease Seizure disorder Social History Smoking Status: Former Smoker History of Alcohol Use: No Review of Systems Constitutional: No fever, No weight loss, No weakness Respiratory: + dyspnea on exertion, No cough, No wheezing, No shortness of breath Cardiac: + see HPI, No chest pain, No orthopnea, No PND, No edema, No palpitations Abdomen: No pain, No nausea, No vomiting, No diarrhea, No GI bleeding Male : No urinary frequency, No nocturia more than once/night, No slowing stream, No sexual dysfunction Neurologic: No paralysis, No weakness, No numbness/tingling, No balance problems Heme: No abnormal bleeding/bruising, No clotting problems Endo: No fatigue Skin: No problem reported Right neck discomfort Allergies Coded Allergies: No Known Allergies (Verified Allergy, Mild, 12/25/04) Medications Current Inpatient Medications Medications (Trade) Dose Ordered Sig/Lili Route Start Time Stop Time Status Last Admin Dose Admin Acetaminophen (Tylenol Tab) 650 mg Q4H PRN PO 09/14/17 15:00 10/14/17 14:59 09/15/17 08:14 650 MG Ondansetron HCl (Zofran Inj) 4 mg Q6H PRN IV 09/14/17 15:00 10/14/17 14:59 Rivaroxaban (Xarelto Tab) 20 mg DAILYBD PO 09/14/17 16:15 10/14/17 16:14 Metoprolol Tartrate (Lopressor Tab) 50 mg BID PO 09/14/17 21:00 10/14/17 20:59 09/15/17 08:09 50 MG Aspirin (Ecotrin Tab) 81 mg DAILY PO 09/15/17 09:00 10/15/17 08:59 09/15/17 08:08 81 MG Bupropion HCl (Wellbutrin-Sr Tab) 150 mg BID PO 09/14/17 21:00 10/14/17 20:59 09/15/17 08:08 150 MG Citalopram Hydrobromide (celeXA TAB) 10 mg DAILY PO 09/15/17 09:00 10/15/17 08:59 09/15/17 08:08 10 MG Lisinopril (Zestril Tab) 10 mg DAILY PO 09/15/17 09:00 10/15/17 08:59 09/15/17 08:08 10 MG Pravastatin Sodium (Pravachol Tab) 20 mg DAILY PO 09/15/17 09:00 10/15/17 08:59 09/14/17 21:29 20 MG Insulin Aspart (novoLOG ASPART) SLIDING SCALE If C... ACHS SC 09/14/17 18:00 10/14/17 17:59 09/15/17 08:06 7 UNITS Glucose (Glucose 40% Gel) 15-30 GRAMS 15 GRAMS... UD PRN PO 09/14/17 15:00 10/14/17 14:59 Glucose (Glucose Chew Tab) 4-8 Tablets 4 Tabl... UD PRN PO 09/14/17 15:00 10/14/17 14:59 Dextrose (Dextrose 50% 50ML Syringe) 25-50ML 25ML FOR ... UD PRN IV 09/14/17 15:00 10/14/17 14:59 Glucagon (Glucagon Inj) 1 mg UD PRN SQ 09/14/17 15:00 10/14/17 14:59 Carbohydrates (Carbohydrates For Hypoglycemia) 15-30 GRAMS 15 grams if BSG 54-69... UD PRN PO 09/14/17 15:00 10/14/17 14:59 Cyclobenzaprine HCl (Flexeril Tab) 5 mg QAM PO 09/15/17 09:00 10/15/17 08:59 09/15/17 08:08 5 MG Miscellaneous (Iv Fluids Completed) 1 ea PRN PRN N/A 09/14/17 16:00 09/14/18 15:59 Zolpidem Tartrate (Ambien Tab) 5 mg HS PRN PO 09/14/17 20:15 10/14/17 20:14 09/14/17 21:28 5 MG Doxazosin Mesylate (Cardura Tab) 4 mg HS PO 09/15/17 21:00 10/15/17 20:59 Physical Exam Vital Signs Past 12 Hours Date Time Temp Pulse Resp B/P (MAP) Pulse Ox O2 Delivery O2 Flow Rate FiO2 09/15/17 08:00 Room Air 09/15/17 07:09 37.0 75 20 126/84 (98) 98 Room Air 09/15/17 04:37 BiPAP 09/15/17 04:01 36.4 75 20 125/84 (98) 97 Room Air 09/15/17 00:56 BiPAP 09/14/17 23:54 36.7 75 20 123/86 (98) 97 Room Air Constitutional: General Apperance: heathly-appearing Level of Distress: NAD Psychiatric: Mental Status: active & alert Head: normocephalic Eyes: EOM: EOMI ENMT: normal ENT inspection, hearing grossly normal Neck: supple, no masses Lungs: Respiratory effort: no dyspnea, good air movement Auscultation: breath sounds normal, no wheezing Cardiovascular: Heart Auscultation: no murmurs, no rubs, no gallops, irregular rate rhythm Peripheral Pulses: Bruits: none appreciated Abdomen: Bowel Sounds: normal Inspection & Palpation: soft, no tenderness, guarding & rebound, no masses Musculoskeletal: normal strength (5/5 throughout) Extremities: no edema Neurologic: Cranial Nerves: grossly intact Sensation: grossly intact Data Laboratory Results: Last 24 Hours Test 09/14/17 11:14 09/14/17 12:45 09/14/17 18:00 09/14/17 20:50 White Blood Count 6.56 K/uL Red Blood Count 4.69 M/uL Hemoglobin 15.5 g/dL Hematocrit 42.3 % Mean Corpuscular Volume 90.2 fL Mean Corpuscular Hemoglobin 33.0 pg Mean Corpuscular Hemoglobin Concent 36.6 g/dl Platelet Count 225 K/uL Mean Platelet Volume 10.0 fL Neutrophils (%) (Auto) 67.9 % Lymphocytes (%) (Auto) 23.0 % Monocytes (%) (Auto) 6.6 % Eosinophils (%) (Auto) 1.5 % Basophils (%) (Auto) 0.8 % Neutrophils # (Auto) 4.46 K/uL Lymphocytes # (Auto) 1.51 K/uL Monocytes # (Auto) 0.43 K/uL Eosinophils # (Auto) 0.10 K/uL Basophils # (Auto) 0.05 K/uL RDW Standard Deviation 42.3 fL RDW Coefficient of Variation 13.0 % Immature Granulocyte % (Auto) 0.2 % Immature Granulocyte # (Auto) 0.01 K/uL Prothrombin Time 10.7 SECONDS Prothromb Time International Ratio 1.0 Activated Partial Thromboplast Time 25.8 SECONDS Partial Thromboplastin Ratio 1.0 Sodium Level 137 mmol/L Potassium Level 4.1 mmol/L Chloride Level 104 mmol/L Carbon Dioxide Level 24 mmol/L Anion Gap 9.0 mmol/L Blood Urea Nitrogen 15 mg/dl Creatinine 1.31 mg/dl Est Creatinine Clear Calc Drug Dose 65.2 ml/min Estimated GFR () 63.9 Estimated GFR (Non- 55.2 BUN/Creatinine Ratio 11.5 Random Glucose 233 mg/dl Calcium Level 8.5 mg/dl Magnesium Level 1.9 mg/dl Total Bilirubin 1.3 mg/dl Direct Bilirubin 0.2 mg/dl Aspartate Amino Transf (AST/SGOT) 17 U/L Alanine Aminotransferase (ALT/SGPT) 20 U/L Alkaline Phosphatase 59 U/L Troponin I < 0.015 ng/ml Total Protein 7.1 gm/dl Albumin 3.5 gm/dl Thyroid Stimulating Hormone (TSH) 2.560 uIu/ml Hepatitis C Antibody Screen NEG Urine Color YELLOW Urine Appearance CLEAR Urine pH 5.0 Urine Specific [place] 1.020 Urine Protein NEG Urine Glucose (UA) 3+ Urine Ketones NEG Urine Occult Blood NEG Urine Nitrite NEG Urine Bilirubin NEG Urine Urobilinogen NEG Urine Leukocyte Esterase TRACE Urine WBC (Auto) 1-5 /hpf Urine RBC (Auto) 0-4 /hpf Urine Hyaline Casts (Auto) 1-5 /lpf Urine Epithelial Cells (Auto) 0-5 /lpf Urine Bacteria (Auto) NEG Bedside Glucose 147 mg/dl 101 mg/dl Test 09/14/17 22:26 09/15/17 06:45 09/15/17 07:23 Troponin I < 0.015 ng/ml < 0.015 ng/ml White Blood Count 7.42 K/uL Red Blood Count 4.89 M/uL Hemoglobin 16.3 g/dL Hematocrit 44.4 % Mean Corpuscular Volume 90.8 fL Mean Corpuscular Hemoglobin 33.3 pg Mean Corpuscular Hemoglobin Concent 36.7 g/dl Platelet Count 232 K/uL Mean Platelet Volume 9.6 fL Neutrophils (%) (Auto) 58.1 % Lymphocytes (%) (Auto) 29.9 % Monocytes (%) (Auto) 7.8 % Eosinophils (%) (Auto) 2.8 % Basophils (%) (Auto) 1.1 % Neutrophils # (Auto) 4.31 K/uL Lymphocytes # (Auto) 2.22 K/uL Monocytes # (Auto) 0.58 K/uL Eosinophils # (Auto) 0.21 K/uL Basophils # (Auto) 0.08 K/uL RDW Standard Deviation 43.3 fL RDW Coefficient of Variation 13.1 % Immature Granulocyte % (Auto) 0.3 % Immature Granulocyte # (Auto) 0.02 K/uL Sodium Level 139 mmol/L Potassium Level 4.5 mmol/L Chloride Level 106 mmol/L Carbon Dioxide Level 28 mmol/L Anion Gap 5.0 mmol/L Blood Urea Nitrogen 14 mg/dl Creatinine 1.25 mg/dl Est Creatinine Clear Calc Drug Dose 68.2 ml/min Estimated GFR () 67.7 Estimated GFR (Non- 58.4 BUN/Creatinine Ratio 11.2 Random Glucose 124 mg/dl Calcium Level 8.9 mg/dl Bedside Glucose 119 mg/dl Imaging: Chest x-ray shows no acute disease, there is atherosclerosis of the aortic arch however EKG: Atrial flutter with a variable AV conduction and a rate of 127 bpm on arrival. Telemetry reviewed: Atrial flutter with a well-controlled heart rate, even with walking Echocardiogram: Normal left ventricular size and function, ejection fraction 55- 60%. Mild left atrial enlargement, borderline concentric left ventricular hypertrophy. Assessment & Plan 1. Atrial flutter: He presented with what clearly seems to be new onset atrial flutter on the morning of 09/14/2017, he was started on anticoagulation within 12 hours and he remains in atrial flutter. Our options are to leave him on anticoagulation and rate control (which seems to very good on his current medications) and see if he converts on his own versus planning cardioversion which we could probably do safely tomorrow morning. Since his heart rate is well controlled with activities as long as he feels well I would favor waiting and seeing if he converts on his own. I will leave the decision up to him however. I did discuss the long-term approach which is anticoagulation, possibly further events requiring medications or even ablation if he remains in atrial flutter (as opposed to atrial fibrillation). Those decisions we would make depending on his course. 2. Aortic atherosclerosis: With calcification of his aortic arch he does have vascular disease, he probably should be treated accordingly and he is on aspirin and pravastatin appropriately. The role of aspirin along with anticoagulation is debatable, it increases the risk of bleeding but will decrease his vascular risk. For the moment I would probably leave him on both. 3. Cervical radiculopathy: I believe he has been diagnosed with a cervical radiculopathy, he has tried conservative approaches for about 3 weeks with no success. It might be worth consulting pain management to see if they have any thoughts, although it is little bit problematic to hold his anticoagulation now if they would want to do an injection, etc. This neck discomfort is his main complaint and has been for several weeks. Thank you for allowing me to participate in his care.
[2017-09-15 12:00] VITALS: O2SAT 98
[2017-09-15 12:01] VITALS: BP 126/69; PULSE 50; TEMP 36.6; O2SAT 98
[2017-09-15 15:12] VITALS: BP 130/78; PULSE 72; TEMP 37.2; O2SAT 96
--- NOTE | 2017-09-15 15:53 | Progress Note ---
Subjective Date of Service: September 15, 2017. Subjective Pt evaluation today including: conversation w/ patient, conversation w/ family , physical exam, chart review, lab review, review of studies, conversation w/ [employer] manufacturing consultant, review of inpatient medication list Doing okay, heart rate is controlled, denies palpitation, denies chest pain, Problem List Medical Problems: (1) Cervical radiculopathy due to degenerative joint disease ofspine Status: Acute (2) New onset atrial flutter Status: Acute Review of Systems Constitutional: No fever, No chills, No sweats, No weight loss, No weakness, No fatigue, No problem reported Eyes: No worsening of vision, No eye pain, No redness, No discharge, No diplopia ENT: No hearing loss, No unusual epistaxis, No nasal symptoms, No sore throat, No tinnitus, No dental problems, No trouble swallowing Respiratory: No cough, No sputum, No wheezing, No shortness of breath, No dyspnea on exertion, No dyspnea at rest, No hemoptysis Cardiac: No chest pain, No orthopnea, No PND, No edema, No claudication, No palpitations Abdomen: No pain, No nausea, No vomiting, No diarrhea, No constipation Musculoskeletal: No joint pain, No muscle pain, No swelling, No calf pain Male : No dysuria, No urinary frequency, No incontinence, No nocturia more than once/night, No slowing stream, No hematuria Neurologic: No memory loss, No paralysis, No weakness, No numbness/tingling, No vertigo, No balance problems Psychiatric: No depression symptoms, No anhedonism, No anxiety, No insomnia, No substance abuse Heme: No abnormal bleeding/bruising, No clotting problems, No swollen lymph nodes, No night sweats Endo: No fatigue, No excessive thirst, No excessive urination Skin: No rash, No itch, No new/changing skin lesions, No color change, No bleeding Objective Vital Signs Date Time Temp Pulse Resp B/P (MAP) Pulse Ox O2 Delivery O2 Flow Rate FiO2 09/15/17 15:12 37.2 72 17 130/78 (95) 96 Room Air 09/15/17 12:00 98 Room Air 09/15/17 08:00 Room Air 09/15/17 07:09 37.0 75 20 126/84 (98) 98 Room Air 09/15/17 04:37 BiPAP 09/15/17 04:01 36.4 75 20 125/84 (98) 97 Room Air 09/15/17 00:56 BiPAP 09/14/17 23:54 36.7 75 20 123/86 (98) 97 Room Air 09/14/17 20:00 96 Room Air 09/14/17 19:37 36.8 78 18 137/88 (104) 97 Room Air 09/14/17 17:00 36.5 74 12 118/80 (93) 96 Room Air 09/14/17 16:38 76 16 135/68 98 09/14/17 16:00 Room Air Physical Exam General Appearance: WD/WN, no apparent distress Eyes: normal inspection, PERRL, EOMI, sclerae normal ENT: normal ENT inspection, hearing grossly normal, pharynx normal Neck: supple, no adenopathy, thyroid normal, no JVD, no carotid bruits, trachea midline Respiratory/Chest: chest non-tender, normal breath sounds, no respiratory distress, no accessory muscle use, + decreased breath sounds Cardiovascular: no edema, no gallop, no JVD, no murmur, + irregularly irregular Abdomen: normal bowel sounds, non tender, soft, no organomegaly, no pulsatile mass Extremities: normal range of motion, non-tender, normal inspection, no pedal edema, no calf tenderness, normal capillary refill, pelvis stable Neurologic/Psychiatric: foundry operator II-XII nml as tested, no motor/sensory deficits, alert, normal mood/affect, oriented x 3 Skin: normal color, warm/dry, no rash Lymphatic: no adenopathy Laboratory Results Last 24 Hours Test 09/14/17 18:00 09/14/17 20:50 09/14/17 22:26 09/15/17 06:45 Bedside Glucose 147 mg/dl 101 mg/dl Troponin I < 0.015 ng/ml < 0.015 ng/ml White Blood Count 7.42 K/uL Red Blood Count 4.89 M/uL Hemoglobin 16.3 g/dL Hematocrit 44.4 % Mean Corpuscular Volume 90.8 fL Mean Corpuscular Hemoglobin 33.3 pg Mean Corpuscular Hemoglobin Concent 36.7 g/dl Platelet Count 232 K/uL Mean Platelet Volume 9.6 fL Neutrophils (%) (Auto) 58.1 % Lymphocytes (%) (Auto) 29.9 % Monocytes (%) (Auto) 7.8 % Eosinophils (%) (Auto) 2.8 % Basophils (%) (Auto) 1.1 % Neutrophils # (Auto) 4.31 K/uL Lymphocytes # (Auto) 2.22 K/uL Monocytes # (Auto) 0.58 K/uL Eosinophils # (Auto) 0.21 K/uL Basophils # (Auto) 0.08 K/uL RDW Standard Deviation 43.3 fL RDW Coefficient of Variation 13.1 % Immature Granulocyte % (Auto) 0.3 % Immature Granulocyte # (Auto) 0.02 K/uL Sodium Level 139 mmol/L Potassium Level 4.5 mmol/L Chloride Level 106 mmol/L Carbon Dioxide Level 28 mmol/L Anion Gap 5.0 mmol/L Blood Urea Nitrogen 14 mg/dl Creatinine 1.25 mg/dl Est Creatinine Clear Calc Drug Dose 68.2 ml/min Estimated GFR () 67.7 Estimated GFR (Non- 58.4 BUN/Creatinine Ratio 11.2 Random Glucose 124 mg/dl Calcium Level 8.9 mg/dl Test 09/15/17 07:23 09/15/17 11:24 09/15/17 14:02 Bedside Glucose 119 mg/dl 84 mg/dl Troponin I < 0.015 ng/ml Assessment and Plan 67yo male with new onset atrial flutter New diagnosed atrial flutter, rate controlled for now, patient is discussing with airveyor operator due to abrasion on not, all and options which is waiting for possibilities of self conversion Telemetry unremarkable, cardiac enzymes x 3 sets were all negative -TSH and electrolytes WNL -Check 2D echocardiogram, which was done, the results is in below by report: Echo results per report * 1. Normal LV size. Borderline concentric LVH. * 2. Normal LV systolic function. LVEF 55-60 %. No regional wall motion abnormalities. * 3. Normal RV size and function. * 4. Trace mitral regurgitation * 5. Mild left atrial enlargement * 6. Compared with prior study on 03/21/2015: Atrial fibrillation is, no other significant changes. Continue metoprolol 25mg po BID, and Xarelto , , patient's [id number]- VASc Score is 3 , therefore he will be benefit oral anticoagulant for stroke prevention, Discussed with patient about risk and benefit, discussed with airveyor operator Hypertension, -Continue Lisinopril Diabetes well controlled with diet and Metformin 500mg po BID -hold Metformin while NPO -ISS with blood sugar checks qPM and qAC Hyperlipidemia, Continue Pravastatin Neck pain, with obvious tender in neck muscle, there was no any radiation pain or tingling and numbness, dumping if any radiculopathy, Patient has outpatient physical therapy ordered, encourage continue local massage, heating pack, and physical therapist I do not believe patient need pain management for now, Full code, DVT prophylaxis ordered, Continued [facility] stay due to: multiple IV medications needed Discharge planning: home
[2017-09-15] MEDS ORDERED: METO50TA16 PO (16:05)
[2017-09-15] MEDS ORDERED: FLX5 PO (16:05)
[2017-09-15] MEDS ORDERED: XRL10 PO (16:05)
[2017-09-15] MEDS ORDERED: CRD4 PO (16:05)
--- NOTE | 2017-09-15 16:05 | Discharge Instructions ---
Discharge Instructions Date of Service September 15, 2017. Admission Reason for Admission: New Onset Atrial Flutter Discharge Discharge Diagnosis / Problem: New diagnosed atrial flutter Discharge Goals Goal(s): Decrease discomfort, Improve function, Increase independence, Improve disease control, Improve nutritional status, Learn about illness, Diagnostic testing, Therapeutic intervention, Prevent Disease Progression, Specific goals Activity Recommendations Activity Limitations: resume your previous activity . Instructions / Follow-Up Instructions / Follow-Up you have new diagnosed atrial flutter, rate controlled for now, Your discussing with gunner's mate m due to abrasion on not, now he decided to go home, recommend to follow-up with cardiology as instructed, continue metoprolol 25mg po BID, and Xarelto , Xarelto is a blood thinner for oral anticoagulant for stroke prevention, be careful down for him, call PCP if have any sign of bleeding Xarelto co-pay was checked by our special education case manager, co-pay is $9 per month You have neck pain, with obvious tender in neck muscle, there was no any radiation pain or tingling and numbness, I do not feel that you need any radiculopathy, Continue outpatient physical therapy , encourage continue local massage, heating pack, and physical therapist, I do not believe patient need pain management for now, - you need to follow up with your primary care physician in 1 week, - take medication as instructed, never overdose or any misuse, or take with alcohol, because misuse of medicine may cause organ damage or , call me , or your primary care physician if have questions of discharge medicaitons. - call your primary care physician, or go to local emergency room if has any fever/chill, chest pain, shortness of breathing, nausea/vomiting/abdominal pain , facial droop/slurry speech/local weakness, or if has any questions. - fall precaution - diet as instructed - you need to follow up with your subspecialist, such as Dr. Andrade you will get a phone call from their service fro the appointment, but, you need to call if no body call you in 2-3 days. Current Hospital Diet Patient's current hospital diet: Diabetes Type 2 Diet, AHA Diet (Heart Healthy) Discharge Diet Recommended Diet: AHA Diet (Heart Healthy), Diabetes Type 2 Diet Pending Studies Studies pending at discharge: no Medical Emergencies . Who to Call and When: Medical Emergencies: If at any time you feel your situation is an emergency, please call 911 immediately. . Non-Emergent Contact Non-Emergency issues call your: Primary Care Provider, Filterer . . "Provider Documentation" section prepared by Singh Ta. .
--- NOTE | 2017-09-15 16:21 | Discharge Summary ---
Discharge Summary Date of Service September 15, 2017. Discharge Summary Admission Date: September 15, 2017 at 15:44 Discharge Date: September 15, 2017 Discharge Disposition: Home Principal Diagnosis: New diagnosed A. fib Problems/Secondary Diagnoses: Neck pain Immunizations: Have You Had Influenza Vaccine: Yes Influenza Vaccine Date: Mar 13, 2005 History of Tetanus Vaccine?: Yes Tetanus Immunization Date: Aug 11, 2000 History of Pneumococcal: No History of Hepatitis B Vaccine: No Procedures: No Consultations: Iron Assorter Medication Reconciliation New Medications: Cyclobenzaprine HCl (Cyclobenzaprine HCl) 5 Mg Tab 5 MG PO QAM for 7 Days, #7 TAB Doxazosin Mesylate (Doxazosin Mesylate) 4 Mg Tab 4 MG PO HS for 30 Days, TAB Metoprolol Tartrate (Lopressor) (Lopressor) 50 Mg Tab 50 MG PO BID for 30 Days, #60 TAB Rivaroxaban (Xarelto) 10 Mg Tab 20 MG PO DAILYBD for 30 Days, TAB Continued Medications: Aspirin Enteric Coated (Ecotrin Or Generic) 81 Mg Tab 81 MG PO DAILY, TAB Bupropion (Wellbutrin Sr) 150 Mg Ertab 150 MG PO BID Citalopram Hydrobromide (Celexa) 10 Mg Tab 1 TAB PO DAILY for 30 Days, #30 TAB 2 Refills Lisinopril (Zestril) 10 Mg Tab 10 MG PO DAILY, TAB Melatonin (Kp Melatonin) 3 Mg Tab 1 TAB PO HS for 30 Days, #30 TAB 2 Refills Metformin Hcl (Glucophage) 500 Mg Tab 500 MG PO BID, TAB Pravastatin (Pravachol ) 20 Mg Tab 20 MG PO, TAB Discharge Exam See today's progress Review of Systems: Constitutional: + problem reported (See today's progress) Physical Exam: General Appearance: + pertinent finding (See today's progress) Hospital Course 67yo male with new onset atrial flutter New diagnosed atrial flutter, rate controlled for now, patient is discussing with lapel padder blindstitch due to abrasion on not, other option which is waiting for possibilities of self conversion Telemetry unremarkable, after several times [id number] with lapel padder blindstitch, patient decided to go home and outpatient follow-up with lapel padder blindstitch cardiac enzymes x 3 sets were all negative -TSH and electrolytes WNL -Check 2D echocardiogram, which was done, the results is in below by report: Echo results per report * 1. Normal LV size. Borderline concentric LVH. * 2. Normal LV systolic function. LVEF 55-60 %. No regional wall motion abnormalities. * 3. Normal RV size and function. * 4. Trace mitral regurgitation * 5. Mild left atrial enlargement * 6. Compared with prior study on 03/21/2015: Atrial fibrillation is, no other significant changes. Continue metoprolol 25mg po BID, and Xarelto , , patient's [id number] VASc Score is 3 , therefore he will be benefit oral anticoagulant for stroke prevention, Discussed with patient about risk and benefit, discussed with lapel padder blindstitch Hypertension, -Continue Lisinopril Diabetes well controlled with diet and Metformin 500mg po BID -hold Metformin while NPO -ISS with blood sugar checks qPM and qAC Hyperlipidemia, Continue Pravastatin Neck pain, with obvious tender in neck muscle, there was no any radiation pain or tingling and numbness,, feel he has no any radiculopathy, Patient has outpatient physical therapy ordered, encourage continue local massage, heating pack, and physical therapist I do not believe patient need pain management for now, Full code, DVT prophylaxis ordered, Instructions / Follow-Up you have new diagnosed atrial flutter, rate controlled for now, Your discussing with lapel padder blindstitch due to abrasion on not, now he decided to go home, recommend to follow-up with cardiology as instructed, continue metoprolol 25mg po BID, and Xarelto , Xarelto is a blood thinner for oral anticoagulant for stroke prevention, be careful down for him, call PCP if have any sign of bleeding Xarelto co-pay was checked by our briefcase sewer, co-pay is $9 per month You have neck pain, with obvious tender in neck muscle, there was no any radiation pain or tingling and numbness, I do not feel that you need any radiculopathy, Continue outpatient physical therapy , encourage continue local massage, heating pack, and physical therapist, I do not believe patient need pain management for now, - you need to follow up with your primary care physician in 1 week, - take medication as instructed, never overdose or any misuse, or take with alcohol, because misuse of medicine may cause organ damage or , call me , or your primary care physician if have questions of discharge medicaitons. - call your primary care physician, or go to local emergency room if has any fever/chill, chest pain, shortness of breathing, nausea/vomiting/abdominal pain , facial droop/slurry speech/local weakness, or if has any questions. - fall precaution - diet as instructed - you need to follow up with your subspecialist, such as Dr. Andrade you will get a phone call from their service fro the appointment, but, you need to call if no body call you in 2-3 days. Total Time Spent: Greater than 30 minutes This includes examination of the patient, discharge planning, medication reconciliation, and communication with other providers. Discharge Instructions Please refer to the electronic Patient Visit Report (Discharge Instructions) for additional information. Additional Copies To Ryder Dewitt M.D.; Alaina Frausto M.D.
[2017-09-15 16:40] VITALS: BP 130/78; PULSE 72; TEMP 37.2; O2SAT 96
[2017-09-15] MEDS ORDERED: DOXAZosin MESYLATE TAB 4 MG TAB PO SCH (21:00)
== END 2017-09-15 18:21 | disposition home or self-care (01) | DRG 310 ==
LOC: C.EDB 10:53 → C.2T 15:04 → ENRESERV 15:25 → OBSVTOIN 09-15 15:44
PROVIDERS: ADMIT Internal Medicine; ATTEND Hospitalist
DX: I48.92 Unspecified atrial flutter (principal); I48.0 Paroxysmal atrial fibrillation; M47.22 Other spondylosis with radiculopathy, cervical region; I70.0 Atherosclerosis of aorta; I10 Essential (primary) hypertension; E11.9 Type 2 diabetes mellitus without complications; E78.5 Hyperlipidemia, unspecified; G47.33 Obstructive sleep apnea (adult) (pediatric); Z87.891 Personal history of nicotine dependence; Z79.82 Long term (current) use of aspirin; Z79.84 Long term (current) use of oral hypoglycemic drugs; Z79.899 Other long term (current) drug therapy

== ENCOUNTER 2022-07-10 16:37 | Inpatient (IN) ==
--- NOTE | 2022-07-10 16:54 | ED Triage Note ---
Date of Service July 10, 2022 History of Present Illness This patient was briefly evaluated while in triage. An abbreviated physical exam was performed. This patient is a 72-year-old Male who presents to the ED for evaluation of hiccups, nausea vomiting diarrhea, dizziness, shortness of breath over the past 2-3 days. Increase in abdominal hernia. History of diverticulitis requiring surgery. Physical Exam CONSTITUTIONAL: mildly uncomfortable, hiccups are present SKIN: pink, warm, dry CARDIAC: regular rate and rhythm RESPIRATORY: in no respiratory distress, lungs clear to auscultation ABDOMEN: ventral hernia is present, no focal tenderness while sitting upright Initial orders for labs and / or imaging were placed and patient was placed in the waiting area until a bed is available. Please see further documentation for the full ED course.
[2022-07-10 17:25] LABS: Hematocrit (blood only) 52.2 % (42.0-52.0); Hemoglobin 18.8 g/dl (14.0-18.0); Mean Corpuscular Hemoglobin 30.5 pg (25.0-34.0); Mean Corpuscular Volume 84.7 fL (80.0-100.0); Mean Platelet Volume 9.9 fL (9.4-12.4); Platelet Count 694 K/uL (130-400); RDW Coefficient of Variation 14.5 % (11.5-14.5); RDW Standard Deviation 42.9 fL (36.4-46.3); Red Blood Count 6.16 M/uL (4.70-6.10); White Blood Count 25.29 K/ul (4.8-10.8)
[2022-07-10 17:34] LABS: Albumin Globulin Ratio 1.4 (0.9-2); Albumin Level 4.8 gm/dl (3.4-5.0); BUN Creatinine Ratio 14.7 (10-20); Bilirubin,Total 1.3 mg/dl (0.2-1.0); Creatinine Clr Calc Pharmacy 20.9 ml/min; Est GFR (Non-African American) 18.1 ml/min; Globulin 3.5 gm/dl (2.5-4.0); Potassium 4.3 mmol/L (3.5-5.1); Total Protein 8.3 gm/dl (6.0-8.3)
[2022-07-10 17:41] LABS: Basophils # (auto) 0.09 K/uL (0-0.2); Basophils % (auto) 0.4 %; Eosinophils # (auto) 0.01 K/uL (0-0.50); Immature Granulocytes # (auto) 0.12 K/uL (0.01-0.20); Immature Granulocytes % (auto) 0.5 %; Lymphocytes # (auto) 0.84 K/uL (1.2-3.4); Lymphocytes % (auto) 3.3 %; Monocytes # (auto) 1.23 K/uL (0.11-0.59); Monocytes % (auto) 4.9 %; Neutrophils % (auto) 90.9 %; Tear Drop Cells 1+; Troponin I High Sensitivity 7.6 pg/ml (0-20)
--- NOTE | 2022-07-10 18:04 | XRay Report ---
XR chest 1V portable CLINICAL HISTORY: Hiccups, n/v COMPARISON STUDY: Chest radiograph January 07, 2022. FINDINGS: Lung volumes are are mildly diminished. There is no consolidation. Lower lung interstitial thickening likely reflects atelectasis. There is no pneumothorax or pleural effusion. Cardiac size is normal. Mediastinal contours are normal. There is no evidence for pulmonary edema. IMPRESSION: No acute cardiopulmonary findings. ACT 112: Negative or not required by law. Electronically signed by: Nate Payan M.D. 07/10/2022 6:02 PM
[2022-07-10] MEDS ORDERED: SODIUM CHLORIDE 0.9% 1000ML 1,000 ML IV ONE (18:32)
--- NOTE | 2022-07-10 18:41 | Emergency Department Note ---
History of Present Illness General Chief complaint: Vomiting Stated complaint: VOMITTING,DIARREAH, Time Seen by Provider: 07/10/22 18:20 Source: patient, RN notes reviewed and old records reviewed Mode of arrival: ambulatory Limitations: no limitations History of Present Illness Maximum Pain Intensity: 9 This patient is a 72 male who comes in after feeling unwell and sick since Thursday night he started with nausea and emesis. He states that the emesis is gotten better over the last day or so and he does feel like he is keeping up with his fluids. No chest pain he does feel short of breath that is mostly dysp geovanna on exertion. No cough. He tactilely has felt like he had a fever. He has a history of diverticulitis and subsequent ostomy with ostomy surgery he has had intra-abdominal issues because of this at times. No recent surgery. The diarrhea continues although not as bad today. Denies any blood or coffee-ground emesis. Denies blood or melena in the stool. He has no dysuria or hematuria he does have some weaker stream. He has some mild low back pain. No lower extremity pain or swelling. He does have a history of A-fib and is on Eliquis. He does not feel he is in A-fib he was only in it once and says he can feel it. Home Medications Medication Instructions Recorded Confirmed Type apixaban 5 mg tablet 5 mg PO BID 05/09/22 07/10/22 History citalopram 20 mg tablet 20 mg PO DAILY #90 tabs 06/03/22 07/10/22 Rx doxazosin 4 mg tablet 4 mg PO QPM #90 tabs 06/03/22 07/10/22 Rx lisinopril 5 mg tablet 5 mg PO DAILY #90 tabs 06/03/22 07/10/22 Rx bupropion HCl 150 mg tablet,12 hr 150 mg PO BID 90 days #180 ea 06/16/22 07/10/22 Rx sustained-release melatonin 3 mg tablet 3 mg PO HS PRN sleep 90 days #90 06/16/22 07/10/22 Rx tabs metformin 500 mg tablet 500 mg PO BID #180 tabs 06/16/22 07/10/22 Rx acetaminophen 500 mg tablet 1,000 mg PO Q6H PRN Pain 07/10/22 07/10/22 History (Tylenol Extra Strength) Allergies Allergy/AdvReac Type Severity Reaction Status Date / Time No Known Drug Allergies Allergy NKDA Verified 07/10/22 20:02 Past Med/Surg History Medical History Atrial fibrillation High blood pressure Surgical History History of colonoscopy Family History Father Myocardial infarction Grandfather (Maternal) Myocardial infarction Other Hearing loss Heart disease Hypertension No family history of adverse response to anesthesia No family history of bleeding disorder Denies family history of Ovarian cancer Prostate cancer Breast cancer Lung cancer Colorectal cancer Social History Smoking Status: Former smoker Tobacco Type: Cigarettes, Pipe and Cigars Cigarettes Per Day: 1-3 packs per day; Second Hand Exposure: No; Hx Alcohol Use: Yes Alcohol type: beer and wine Alcohol Intake Frequency: 2-4 x/Month Hx Substance Use: No Preferred Language: Finnish Communication Ability: Effective Visual Impairment: Limited Hearing Ability: Normal marital status: Single Current Living Situation: Significant Other current occupational status: employed 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 Feels Safe at Home: Yes Childhood Exposure to Second-Hand Smoke: No caffeine: No Dental Care, Regularly: No Physical Activity Frequency: Daily Seatbelt Use: sometimes Sunscreen Use: No Review of Systems A total of 10 systems reviewed and were otherwise negative Physical Exam Vital Signs Vital Signs - 24 hr 07/10/22 16:41 07/10/22 19:24 07/10/22 19:29 Temperature 37.3 C Temperature Source Temporal Artery Scan Pulse Rate 97 H 85 Pulse Rate [Apical] 85 Respiratory Rate 20 18 Respiratory Effort / Characteristics Non-Labored Spontaneous Non-Labored Respiratory Depth Normal Normal Respiratory Pattern Regular Regular Blood Pressure 107/65 Blood Pressure [Right Arm] 123/73 Blood Pressure Mean 79 Blood Pressure Mean [Right Arm] 89 Blood Pressure Position [Right Arm] Right Lateral Pulse Oximetry 97 97 Oxygen Delivery Method Room Air Room Air Sepsis Recent Fever Within 48 Hours No Sepsis New/Unexplained Change in Mental Status No Sepsis Action Taken by Nursing No Action Required General: Well developed well nourished [id number] older male who appears in no acute distress, breathing comfortably on room air. Normal speech HEENT: Normal cephalic atraumatic. Pupils are equal round and reactive to light. Extraocular movements are intact. Oropharynx is pink with moist mucous membranes. No swelling of the mouth lips or tongue. Neck: Supple with a midline trachea. No meningeal signs or stiffness, no JVD or bruits. No Stridor. Chest: Clear to auscultation bilaterally. No wheezes or rhonchi. No increased work of breathing. Heart: Regular rate and rhythm without murmurs or gallops. Abdomen: Soft nontender, nondistended without rebound guarding or rigidity. He does have multiple surgical scars they do not seem to be tender or red or warm. Extremities: No cyanosis clubbing or edema. No calf tenderness or assymetry Spine/Back. Non tender to palpation. No CVA tenderness Skin: Good turgor without rashes. Neurologic exam: Cranial nerves two through 12 are intact. Motor and sensation are intact and symmetrical throughout. Course Administered Medications Apixaban (Apixaban 5 Mg Tablet) 5 mg PO BID GIANNA Stop: 08/09/22 22:27 Last Admin: 07/10/22 23:24 Dose: 5 mg Documented By: ROSEANN Bupropion HCl (Bupropion Sr 150 Mg Tabcr) 150 mg PO BID GIANNA Stop: 08/09/22 22:27 Last Admin: 07/10/22 23:25 Dose: 150 mg Documented By: ROSEANN Doxazosin Mesylate (Doxazosin Mesylate 4 Mg Tab) 4 mg PO QPM GIANNA Stop: 08/09/22 22:27 Last Admin: 07/10/22 23:24 Dose: 4 mg Documented By: ROSEANN Sodium Chloride (Nss 1000ml) 1,000 mls @ 100 mls/hr IV .Q10H GIANNA Stop: 07/11/22 18:27 Last Admin: 07/10/22 23:23 Dose: 100 mls/hr Documented By: ROSEANN Insulin Aspart (Insulin Aspart Per Unit) 0 units SC ACHS GIANNA Stop: 08/09/22 22:27 Last Admin: 07/10/22 23:09 Dose: Not Given Documented By: ROSEANN Melatonin (Melatonin 3 Mg Tab) 3 mg PO HS PRN PRN Reason: sleep Stop: 08/09/22 22:27 Last Admin: 07/10/22 23:23 Dose: 3 mg Documented By: ROSEANN Discontinued Medications Chlorpromazine HCl (Chlorpromazine Hcl 25 Mg Tab) 25 mg PO NOW ONE Stop: 07/10/22 20:17 Last Admin: 07/10/22 20:30 Dose: 25 mg Documented By: VINCENT Sodium Chloride (Nss 1000ml) 1,000 mls @ 999 mls/hr IV .Q1H1M ONE Stop: 07/10/22 19:32 Last Infusion: 07/10/22 19:56 Dose: 0 mls/hr Documented By: Admin: 07/10/22 18:52 Dose: 999 mls/hr Documented By: EPI Medical Decision Making Differential Diagnosis Sepsis, dehydration, GI illness, kidney disease, electrolyte or metabolic abnormality, COVID, postop complication, bowel obstruction, colitis Medical Records Attestation: I reviewed the patient's medical records. Home Medications Current Medication List: was personally reviewed by me Laboratory Data Attestation: I reviewed the patient's lab results. 07/10/22 16:56 07/10/22 16:56 Lab Results 07/10/22 07/10/22 07/10/22 Range/Units 16:56 16:56 16:56 WBC 25.29 H (4.8-10.8) K/ul RBC 6.16 H (4.70-6.10) M/uL Hgb 18.8 H (14.0-18.0) g/dl Hct 52.2 H (42.0-52.0) % MCV 84.7 (80.0-100.0) fL MCH 30.5 (25.0-34.0) pg MCHC 36.0 (32.0-36.0) g/dL RDW Std Deviation 42.9 (36.4-46.3) fL RDW Coeff of Johanthan 14.5 (11.5-14.5) % Plt Count 694 H (130-400) K/uL MPV 9.9 (9.4-12.4) fL Immature Gran % (Auto) 0.5 % Neut % (Auto) 90.9 % Lymph % (Auto) 3.3 % Bath % (Auto) 4.9 % Eos % (Auto) 0.0 % Baso % (Auto) 0.4 % Neut # (Auto) 23.00 H (1.40-6.50) K/uL Lymph # (Auto) 0.84 L (1.2-3.4) K/uL Bath # (Auto) 1.23 H (0.11-0.59) K/uL Eos # (Auto) 0.01 (0-0.50) K/uL Baso # (Auto) 0.09 (0-0.2) K/uL Immature Gran # (Auto) 0.12 (0.01-0.20) K/uL Tear Drop Cells 1+ Sodium 130 L (136-145) mmol/L Potassium 4.3 (3.5-5.1) mmol/L Chloride 100 (98-107) mmol/L Carbon Dioxide 14 L (21-32) mmol/L Anion Gap 16 H (3-11) BUN 47 H (6-23) mg/dl Creatinine 3.20 H (0.6-1.4) mg/dl Est Cr Clr Drug Dosing 20.9 ml/min Est GFR ( Amer) 21.0 ml/min Est GFR (Non-Af Amer) 18.1 ml/min BUN/Creatinine Ratio 14.7 (10-20) Glucose 151 H (70-99(Fasting)) mg/dl Lactate (0.4-2.0) mmol/L Calcium 9.0 (8.5-10.1) mg/dl Total Bilirubin 1.3 H (0.2-1.0) mg/dl AST 30 (13-39) U/L ALT 17 (7-52) U/L Alkaline Phosphatase 93 (34-104) U/L Troponin I High Sens 7.6 (0-20) pg/ml B-Natriuretic Peptide (0-100) pg/ml Total Protein 8.3 (6.0-8.3) gm/dl Albumin 4.8 (3.4-5.0) gm/dl Globulin 3.5 (2.5-4.0) gm/dl Albumin/Globulin Ratio 1.4 (0.9-2) Lipase 59 (11-82) U/L SARS-CoV-2, RNA, NAAT NEGATIVE (NEGATIVE) 07/10/22 07/10/22 07/10/22 Range/Units 18:54 20:26 20:26 WBC (4.8-10.8) K/ul RBC (4.70-6.10) M/uL Hgb (14.0-18.0) g/dl Hct (42.0-52.0) % MCV (80.0-100.0) fL MCH (25.0-34.0) pg MCHC (32.0-36.0) g/dL RDW Std Deviation (36.4-46.3) fL RDW Coeff of Johnathan (11.5-14.5) % Plt Count (130-400) K/uL MPV (9.4-12.4) fL Immature Gran % (Auto) % Neut % (Auto) % Lymph % (Auto) % Bath % (Auto) % Eos % (Auto) % Baso % (Auto) % Neut # (Auto) (1.40-6.50) K/uL Lymph # (Auto) (1.2-3.4) K/uL Bath # (Auto) (0.11-0.59) K/uL Eos # (Auto) (0-0.50) K/uL Baso # (Auto) (0-0.2) K/uL Immature Gran # (Auto) (0.01-0.20) K/uL Tear Drop Cells Sodium (136-145) mmol/L Potassium (3.5-5.1) mmol/L Chloride (98-107) mmol/L Carbon Dioxide (21-32) mmol/L Anion Gap (3-11) BUN (6-23) mg/dl Creatinine (0.6-1.4) mg/dl Est Cr Clr Drug Dosing ml/min Est GFR ( Amer) ml/min Est GFR (Non-Af Amer) ml/min BUN/Creatinine Ratio (10-20) Glucose (70-99(Fasting)) mg/dl Lactate 2.0 (0.4-2.0) mmol/L Calcium (8.5-10.1) mg/dl Total Bilirubin (0.2-1.0) mg/dl AST (13-39) U/L ALT (7-52) U/L Alkaline Phosphatase (34-104) U/L Troponin I High Sens 6.3 (0-20) pg/ml B-Natriuretic Peptide 15 (0-100) pg/ml Total Protein (6.0-8.3) gm/dl Albumin (3.4-5.0) gm/dl Globulin (2.5-4.0) gm/dl Albumin/Globulin Ratio (0.9-2) Lipase (11-82) U/L SARS-CoV-2, RNA, NAAT (NEGATIVE) Imaging Data Attestation: I personally reviewed and interpreted this imaging study as follows: My Impression: Chest x-rayno acute infiltrate, failure, pneumothorax seen CAT scan of the abdomen pelvis. There are multiple air-fluid levels but I do not see any definite obstruction Radiologist's Impression: Chest X-Ray 07/10/22 16:44 XR chest 1V portable CLINICAL HISTORY: Hiccups, n/v COMPARISON STUDY: Chest radiograph January 07, 2022. FINDINGS: Lung volumes are are mildly diminished. There is no consolidation. Lower lung interstitial thickening likely reflects atelectasis. There is no pneumothorax or pleural effusion. Cardiac size is normal. Mediastinal contours are normal. There is no evidence for pulmonary edema. IMPRESSION: No acute cardiopulmonary findings. ACT 112: Negative or not required by law. Electronically signed by: Nate Payan M.D. 07/10/2022 6:02 PM Abdomen/Pelvis CT 07/10/22 18:31 CT OF THE ABDOMEN AND PELVIS WITHOUT CONTRAST CLINICAL HISTORY: Abdominal pain, elevated wbc. COMPARISON STUDY: No previous studies for comparison. TECHNIQUE: Axial images of the abdomen and pelvis were obtained without IV contrast. Images were reviewed in the axial, sagittal, and coronal planes. Automated exposure control was utilized for the study. A dose lowering technique was utilized adhering to the principles of ALARA. FINDINGS: There is a trace left pleural effusion. No pneumatosis, free air or portal venous gas is present. Evaluation of the abdomen and pelvis is suboptimal on this unenhanced examination. Unenhanced images of the liver, adrenal glands, kidneys and pancreas are unremarkable. There is no biliary ductal dilatation status post cholecystectomy. No hydronephrosis. There is mild splenomegaly. A few splenules are present. There is extensive plaque of the abdominal aorta which is normal in caliber. Sigmoid resection is noted. Small and large bowel are fluid-filled and contains multiple air-fluid levels. The colon is mildly distended. There is no transition point. There is no evidence for a bowel obstruction. No fluid collection is present. There is trace fluid within the left paracolic gutter. The appendix is normal. There is no lymphadenopathy. No acute fractures are identified. There are no urinary calculi. A small right ventral hernia contains a portion of the colon. There is no resultant bowel obstruction. There may be an additional periumbilical hernia which contains a small bowel loop. This is suboptimally assessed due to artifact. Prostate is enlarged, measuring 6.3 cm in transverse dimension. IMPRESSION: 1. Fluid-filled small and large bowel with air-fluid levels. Mildly dilated large bowel without transition point. These findings are nonspecific but may reflect a gastroenteritis with diarrheal state. No evidence for a bowel obstruct ion. No pneumatosis, free air or portal venous gas. 2. Trace fluid within the left paracolic gutter. Trace left pleural effusion. 3. Enlarged prostate. 4. Two bowel containing ventral hernias without resultant bowel obstruction. ACT 112: Negative or not required by law. Electronically signed by: Nate Payan M.D. 07/10/2022 7:53 PM ECG Data Attestation: I personally reviewed and interpreted this ECG as follows: Indication: + abdominal pain and + SOB/dyspnea Rate (beats per minute): 97 Rhythm: + normal sinus ECG Intervals/blocks: + Normal QRS, + Normal QT, + Normal OR and + Normal QT-c ECG [place]: + Normal ECG ST segments: + Normal ST segments ECG Findings: no PACs or no PVCs Comparison ECG Date: from (12/23/21) Change: no significant change MDM Narrative This patient comes in as described above he was seen initially in triage in order orders were placed by Philipp Marquez PA-C. When I saw him labs were already coming back. I was concerned he had a high white count of 25,000 and his renal function was elevated. This may be prerenal related to hydration and I added additional labs, I ordered 1 L IV normal saline bolus. Added blood cultures and lactic acid and further cardiac work-up. I change his CAT scan to a noncontrast given his bump in creatinine. I also added a urine and stool studies. I talked the patient at length I was concerned that he may be septic. His lactic acid was not significant elevated was 2. CAT scan shows multiple air-fluid levels but no definite obstruction. I called and talked to Dr. Payan the radiologist on the phone and we looked at the CAT scan together and he does not feel there is any obstruction or acute surgical process. It may be that he has a GI illness and he dry/prerenal. He is received IV hydration in the ED. COVID testing was negative does not suggest a UTI. I do think he needs to be admitted/observed for IV hydration and further treatment and evaluation and observation I have consulted Dr. Gallegos to see the patient ER for these measures Continuous cardiac monitoring: Orders placed in EMR for continuous cardiac monitoring: Upon my interpretation patient was noted be normal sinus rhythm rate of 95. Impression & Plan Acute renal failure, Acute dehydration, Lab test negative for COVID-19 virus, Diarrhea, Nausea & vomiting Discharge Plan Visit Data Chief Complaint: Vomiting Stated Complaint: VOMITTING,DIARREAH, ED Provider: Forrest Goff Discharge Problem: Acute renal failure, Acute dehydration, Lab test negative for COVID-19 virus, Diarrhea, Nausea & vomiting Patient Disposition: Admitted As Inpatient Discharge Instructions Interventions: ED Discharge Assessment Last Done: 07/10/22 21:40
--- NOTE | 2022-07-10 19:56 | CT Scan Report ---
CT OF THE ABDOMEN AND PELVIS WITHOUT CONTRAST CLINICAL HISTORY: Abdominal pain, elevated wbc. COMPARISON STUDY: No previous studies for comparison. TECHNIQUE: Axial images of the abdomen and pelvis were obtained without IV contrast. Images were revi ewed in the axial, sagittal, and coronal planes. Automated exposure control was utilized for the bia dy. A dose lowering technique was utilized adhering to the principles of ALARA. FINDINGS: There is a trace left pleural effusion. No pneumatosis, free air or portal venous gas is pr esent. Evaluation of the abdomen and pelvis is suboptimal on this unenhanced examination. Unenhanced images of the liver, adrenal glands, kidneys and pancreas are unremarkable. There is no biliary ducta l dilatation status post cholecystectomy. No hydronephrosis. There is mild splenomegaly. A few splenu les are present. There is extensive plaque of the abdominal aorta which is normal in caliber. Sigmoid resection is noted. Small and large bowel are fluid-filled and contains multiple air-fluid levels. T he colon is mildly distended. There is no transition point. There is no evidence for a bowel obstruct ion. No fluid collection is present. There is trace fluid within the left paracolic gutter. The appen elisabeth is normal. There is no lymphadenopathy. No acute fractures are identified. There are no urinary c alculi. A small right ventral hernia contains a portion of the colon. There is no resultant bowel obs truction. There may be an additional periumbilical hernia which contains a small bowel loop. This is suboptimally assessed due to artifact. Prostate is enlarged, measuring 6.3 cm in transverse dimension . IMPRESSION: 1. Fluid-filled small and large bowel with air-fluid levels. Mildly dilated large bowel without trans ition point. These findings are nonspecific but may reflect a gastroenteritis with diarrheal state. N o evidence for a bowel obstruction. No pneumatosis, free air or portal venous gas. 2. Trace fluid within the left paracolic gutter. Trace left pleural effusion. 3. Enlarged prostate. 4. Two bowel containing ventral hernias without resultant bowel obstruction. ACT 112: Negative or not required by law. Electronically signed by: Nate Payan M.D. 07/10/2022 7:53 PM
[2022-07-10] MEDS ORDERED: chlorproMAZINE HCL 25 MG TAB PO ONE ×2 (20:16→22:41)
--- NOTE | 2022-07-10 20:29 | History & Physical Report ---
Date of Service July 10, 2022 Assessment & Plan (1) Acute renal failure: (2) Acute dehydration: (3) Rotavirus enteritis: (4) Diarrhea: (5) Nausea & vomiting: (6) Diabetes mellitus: (7) Atrial fibrillation: (8) Anticoagulant long-term use: Plan Rotavirus gastroenteritis with acute diarrheal state- Supportive treatment The volume of diarrhea has already been improving today per patient Zofran 4 mg IV every 6 hours as needed IV fluids Acetaminophen 650 mg by mouth every 6 hours as needed for pain or fever Acute kidney injury- Creatinine 3.20 upon admission, with base 1.28 Placed on NSS at 80 mils per hour x2 L Repeat laboratories every morning Hiccups- Trial of Thorazine 25 mg x 1 Diabetes mellitus- Hold metformin Placed on Accu-Cheks with NovoLog SSI Hypertension/atrial fibrillation- Hold lisinopril due to FLORA Continue apixaban and doxazosin BPH- Continue doxazosin at bedtime Anxiety with depression- Continue bupropion and citalopram Insomnia- Continue melatonin History of Present Illness Chief Complaint: The patient presents to the emergency department with 3 days of nausea, vomiting, diarrhea, and fatigue. He has had hiccups develop over the past 24 hours Primary Care Provider: Orlando Dooley DO The patient is a 72-year-old male with a past medical history including diabetes mellitus, atrial fibrillation, hypertension, aortic calcification, long-term anticoagulant use, anxiety with depression, BPH and insomnia. He presents to the emergency department with 2 to 3 days of symptoms as noted above. CT scan of abdomen pelvis was consistent with gastroenteritis and a diarrheal state, and also noted an enlarged prostate Significant laboratories: WBC 25.29, hemoglobin 18.8, hematocrit 52.2, platelets 694, sodium 130, BUN 47, creatinine 3.20, glucose 151 and bicarb 14. COVID-19 testing negative Stool PCR positive for stool rotavirus Patient notes that he has only had 1 bowel movement today, feels like his diarrheal state is slowly improving, however, he feels very dehydrated Allergies Allergy/AdvReac Type Severity Reaction Status Date / Time No Known Drug Allergies Allergy NKDA Verified 07/10/22 20:02 Home Medications Medication Instructions Recorded Confirmed Type apixaban 5 mg tablet 5 mg PO BID 05/09/22 07/10/22 History citalopram 20 mg tablet 20 mg PO DAILY #90 tabs 06/03/22 07/10/22 Rx doxazosin 4 mg tablet 4 mg PO QPM #90 tabs 06/03/22 07/10/22 Rx lisinopril 5 mg tablet 5 mg PO DAILY #90 tabs 06/03/22 07/10/22 Rx bupropion HCl 150 mg tablet,12 hr 150 mg PO BID 90 days #180 ea 06/16/22 07/10/22 Rx sustained-release melatonin 3 mg tablet 3 mg PO HS PRN sleep 90 days #90 06/16/22 07/10/22 Rx tabs metformin 500 mg tablet 500 mg PO BID #180 tabs 06/16/22 07/10/22 Rx acetaminophen 500 mg tablet 1,000 mg PO Q6H PRN Pain 07/10/22 07/10/22 History (Tylenol Extra Strength) Past Med/Surg History Medical History Atrial fibrillation High blood pressure Surgical History History of colonoscopy Family History Father Myocardial infarction Grandfather (Maternal) Myocardial infarction Other Hearing loss Heart disease Hypertension No family history of adverse response to anesthesia No family history of bleeding disorder Denies family history of Ovarian cancer Prostate cancer Breast cancer Lung cancer Colorectal cancer Social History Smoking Status: Former smoker Tobacco Type: Cigarettes, Pipe and Cigars Cigarettes Per Day: 1-3 packs per day; Smoking End Date: 33 YEARS; Second Hand Exposure: No; Hx Alcohol Use: Yes Alcohol type: beer and wine Alcohol Intake Frequency: 2-4 x/Month Hx Substance Use: No Preferred Language: Urdu Communication Ability: Effective Visual Impairment: Limited Hearing Ability: Normal Development Specialist Required: No Beliefs That Will Affect Care: None marital status: Single Current Living Situation: Significant Other current occupational status: employed 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 Review of Systems Review of Systems: The patient denies chest pain, palpitations, shortness of breath, dyspnea on exertion, cough, lower extremity swelling, sore throat, fevers, chills, sweats, blood in urine or stool, dysuria, urinary frequency or urgency, lightheadedness, dizziness, headache, memory loss, loss of consciousness, rash, abnormal bruising or bleeding, imbalance, focal or generalized weakness, numbness or tingling in arms or legs, generalized arthralgias or myalgias, back or neck pain, or night sweats. The review of systems is otherwise negative other than for that already noted above, and at least 10 systems have been reviewed. Physical Exam Physical Exam: The patient is awake, alert and oriented 3, well developed and well nourished, normocephalic and atraumatic, lying in bed and in no acute distress. HEENT--PERRL, EOMI, mucous membranes and oropharynx moderately dry. Neck--supple. No JVD. No bruits. Thyroid normal, trachea midline, no adenopathy. Heart--normal S1 and S2. No murmurs, rubs or gallops. Lungs--clear bilaterally, no respiratory distress, no accessory muscle use. Abdomen--normal bowel sounds and soft. Nontender. Nondistended. Mildly obese Extremities--no cyanosis or clubbing. No edema. Dermatologic--normal skin turgor, normal color, no abnormal lymph nodes, no rash. Neurologic--cranial nerves II through XII grossly intact. Rheumatologic--limited exam Psychiatric--normal affect. Results & Data Results & Data Vital Signs (Past 12 Hours) Vital Signs Temp Pulse Pulse Resp BP BP Pulse Ox 07/10/22 19:29 85 07/10/22 19:24 85 18 123/73 97 07/10/22 16:41 37.3 C 97 H 20 107/65 97 O2 Del Method 07/10/22 19:29 07/10/22 19:24 Room Air 07/10/22 16:41 Room Air Laboratory Results Laboratory Results WBC 25.29 K/ul (4.8-10.8) H 07/10/22 16:56 RBC 6.16 M/uL (4.70-6.10) H 07/10/22 16:56 Hgb 18.8 g/dl (14.0-18.0) H 07/10/22 16:56 Hct 52.2 % (42.0-52.0) H 07/10/22 16:56 MCV 84.7 fL (80.0-100.0) 07/10/22 16:56 MCH 30.5 pg (25.0-34.0) 07/10/22 16:56 MCHC 36.0 g/dL (32.0-36.0) 07/10/22 16:56 RDW Std Deviation 42.9 fL (36.4-46.3) 07/10/22 16:56 RDW Coeff of Johnathan 14.5 % (11.5-14.5) 07/10/22 16:56 Plt Count 694 K/uL (130-400) H 07/10/22 16:56 MPV 9.9 fL (9.4-12.4) 07/10/22 16:56 Immature Gran % (Auto) 0.5 % 07/10/22 16:56 Neut % (Auto) 90.9 % 07/10/22 16:56 Lymph % (Auto) 3.3 % 07/10/22 16:56 Blair % (Auto) 4.9 % 07/10/22 16:56 Eos % (Auto) 0.0 % 07/10/22 16:56 Baso % (Auto) 0.4 % 07/10/22 16:56 Neut # (Auto) 23.00 K/uL (1.40-6.50) H 07/10/22 16:56 Lymph # (Auto) 0.84 K/uL (1.2-3.4) L 07/10/22 16:56 Blair # (Auto) 1.23 K/uL (0.11-0.59) H 07/10/22 16:56 Eos # (Auto) 0.01 K/uL (0-0.50) 07/10/22 16:56 Baso # (Auto) 0.09 K/uL (0-0.2) 07/10/22 16:56 Immature Gran # (Auto) 0.12 K/uL (0.01-0.20) 07/10/22 16:56 Tear Drop Cells 1+ 07/10/22 16:56 Sodium 130 mmol/L (136-145) L 07/10/22 16:56 Potassium 4.3 mmol/L (3.5-5.1) 07/10/22 16:56 Chloride 100 mmol/L (98-107) 07/10/22 16:56 Carbon Dioxide 14 mmol/L (21-32) L 07/10/22 16:56 Anion Gap 16 (3-11) H 07/10/22 16:56 BUN 47 mg/dl (6-23) H 07/10/22 16:56 Creatinine 3.20 mg/dl (0.6-1.4) H 07/10/22 16:56 Est Cr Clr Drug Dosing 20.9 ml/min 07/10/22 16:56 Est GFR ( Amer) 21.0 ml/min 07/10/22 16:56 Est GFR (Non-Af Amer) 18.1 ml/min 07/10/22 16:56 BUN/Creatinine Ratio 14.7 (10-20) 07/10/22 16:56 Glucose 151 mg/dl (70-99(Fasting)) H 07/10/22 16:56 POC Glucose 135 mg/dl (70-99) H 07/10/22 22:21 Lactate 2.0 mmol/L (0.4-2.0) 07/10/22 18:54 Calcium 9.0 mg/dl (8.5-10.1) 07/10/22 16:56 Total Bilirubin 1.3 mg/dl (0.2-1.0) H 07/10/22 16:56 AST 30 U/L (13-39) 07/10/22 16:56 ALT 17 U/L (7-52) 07/10/22 16:56 Alkaline Phosphatase 93 U/L (34-104) 07/10/22 16:56 Troponin I High Sens 6.3 pg/ml (0-20) 07/10/22 20:26 B-Natriuretic Peptide 15 pg/ml (0-100) 07/10/22 20:26 Total Protein 8.3 gm/dl (6.0-8.3) 07/10/22 16:56 Albumin 4.8 gm/dl (3.4-5.0) 07/10/22 16:56 Globulin 3.5 gm/dl (2.5-4.0) 07/10/22 16:56 Albumin/Globulin Ratio 1.4 (0.9-2) 07/10/22 16:56 Lipase 59 U/L (11-82) 07/10/22 16:56 Urine Color Yellow 07/11/22 00:40 Urine Appearance Clear (Clear) 07/11/22 00:40 Urine pH 5.0 (4.5-7.5) 07/11/22 00:40 Ur Specific [place] 1.019 (1.000-1.030) 07/11/22 00:40 Urine Protein Negative (Negative) 07/11/22 00:40 Urine Glucose (UA) Negative (Negative) 07/11/22 00:40 Urine Ketones Negative (Negative) 07/11/22 00:40 Urine Blood Negative (Negative) 07/11/22 00:40 Urine Nitrite Negative (Negative) 07/11/22 00:40 Urine Bilirubin Negative (Negative) 07/11/22 00:40 Urine Urobilinogen Negative (Negative) 07/11/22 00:40 Ur Leukocyte Esterase Trace (Negative) H 07/11/22 00:40 Urine WBC (Auto) 1-5 /hpf (0-5) 07/11/22 00:40 Urine RBC (Auto) 0-4 /hpf (0-4) 07/11/22 00:40 U Hyaline Cast (Auto) 5-10 /lpf (0-5) H 07/11/22 00:40 U Epithel Cells (Auto) 20-30 /lpf (0-5) H 07/11/22 00:40 Urine Bacteria (Auto) Negative (Negative) 07/11/22 00:40 Stl C. cayetanensis PCR Not Detected (NotDetected) 07/11/22 00:40 Stool Rotavirus A PCR DETECTED (NotDetected) A* 07/11/22 00:40 Stl Adenov F 4041 PCR Not Detected (NotDetected) 07/11/22 00:40 Stool Astrovirus (PCR) Not Detected (NotDetected) 07/11/22 00:40 Stool Campylobacter PCR Not Detected (NotDetected) 07/11/22 00:40 Stl C. diff Tox B Gene Negative Cdiff Gene (Neg) 07/11/22 00:40 Stool Cryptosporidium PCR Not Detected (NotDetected) 07/11/22 00:40 Stl E.coli Shiga Tox PCR Not Detected (NotDetected) 07/11/22 00:40 Stl Enterotoxigenic E PCR Not Detected (NotDetected) 07/11/22 00:40 Stool EPEC (PCR) Not Detected (NotDetected) 07/11/22 00:40 Stool EAEC (PCR) Not Detected (NotDetected) 07/11/22 00:40 Stl E. histolytica PCR Not Detected (NotDetected) 07/11/22 00:40 Stool Giardia Lamblia PCR Not Detected (NotDetected) 07/11/22 00:40 Stool Salmonella PCR Not Detected (NotDetected) 07/11/22 00:40 Stool Sapovirus (PCR) Not Detected (NotDetected) 07/11/22 00:40 Stl P. shigelloides PCR Not Detected (NotDetected) 07/11/22 00:40 Stl Shigella/EIEC PCR Not Detected (NotDetected) 07/11/22 00:40 St Y.enterocolitica PCR Not Detected (NotDetected) 07/11/22 00:40 Stool Vibrio (PCR) Not Detected (NotDetected) 07/11/22 00:40 Stl Vibrio cholerae PCR Not Detected (NotDetected) 07/11/22 00:40 Stl Norovirus GI/GII PCR Not Detected (NotDetected) 07/11/22 00:40 SARS-CoV-2, RNA, NAAT NEGATIVE (NEGATIVE) 07/10/22 16:56 Impressions Chest X-Ray 07/10/22 16:44 XR chest 1V portable CLINICAL HISTORY: Hiccups, n/v COMPARISON STUDY: Chest radiograph January 07, 2022. FINDINGS: Lung volumes are are mildly diminished. There is no consolidation. Lower lung interstitial thickening likely reflects atelectasis. There is no pneumothorax or pleural effusion. Cardiac size is normal. Mediastinal contours are normal. There is no evidence for pulmonary edema. IMPRESSION: No acute cardiopulmonary findings. ACT 112: Negative or not required by law. Electronically signed by: Nate Payan M.D. 07/10/2022 6:02 PM Abdomen/Pelvis CT 07/10/22 18:31 CT OF THE ABDOMEN AND PELVIS WITHOUT CONTRAST CLINICAL HISTORY: Abdominal pain, elevated wbc. COMPARISON STUDY: No previous studies for comparison. TECHNIQUE: Axial images of the abdomen and pelvis were obtained without IV contrast. Images were reviewed in the axial, sagittal, and coronal planes. Automated exposure control was utilized for the study. A dose lowering technique was utilized adhering to the principles of ALARA. FINDINGS: There is a trace left pleural effusion. No pneumatosis, free air or portal venous gas is present. Evaluation of the abdomen and pelvis is suboptimal on this unenhanced examination. Unenhanced images of the liver, adrenal glands, kidneys and pancreas are unremarkable. There is no biliary ductal dilatation status post cholecystectomy. No hydronephrosis. There is mild splenomegaly. A few splenules are present. There is extensive plaque of the abdominal aorta which is normal in caliber. Sigmoid resection is noted. Small and large bowel are fluid-filled and contains multiple air-fluid levels. The colon is mildly distended. There is no transition point. There is no evidence for a bowel obstruction. No fluid collection is present. There is trace fluid within the left paracolic gutter. The appendix is normal. There is no lymphadenopathy. No acute fractures are identified. There are no urinary calculi. A small right ventral hernia contains a portion of the colon. There is no resultant bowel obstruction. There may be an additional periumbilical hernia which contains a small bowel loop. This is suboptimally assessed due to artifact. Prostate is enlarged, measuring 6.3 cm in transverse dimension. IMPRESSION: 1. Fluid-filled small and large bowel with air-fluid levels. Mildly dilated large bowel without transition point. These findings are nonspecific but may reflect a gastroenteritis with diarrheal state. No evidence for a bowel obstruction. No pneumatosis, free air or portal venous gas. 2. Trace fluid within the left paracolic gutter. Trace left pleural effusion. 3. Enlarged prostate. 4. Two bowel containing ventral hernias without resultant bowel obstruction. ACT 112: Negative or not required by law. Electronically signed by: Nate Payan M.D. 07/10/2022 7:53 PM Code Status & VTE Plan Code Status Full code VTE Prophylaxis Plan VTE Prophylaxis will be ordered: Yes PG Care Time/CCT Total # of Minutes Spent Total Time Spent with Patient: Total time spent is greater than 50% in coordination of care (as documented) at patient's floor/unit and/or counseling patient: Coding Level of Care Code 07622 INT INP/OBS CARE MIN Diagnoses Acute renal failure N17.9 Acute renal failure type: unspecified Acute dehydration E86.0 Rotavirus enteritis A08.0 Diarrhea R19.7 Diarrhea type: unspecified type Nausea & vomiting R11.2 Vomiting type: unspecified Diabetes mellitus E11.9 Atrial fibrillation I48.0 Atrial fibrillation type: paroxysmal Anticoagulant long-term use Z79.01 (1) Acute renal failure Acute renal failure type: unspecified Qualified Code(s): N17.9 - Acute kidney failure, unspecified (4) Diarrhea Diarrhea type: unspecified type Qualified Code(s): R19.7 - Diarrhea, unspeci fied (5) Nausea & vomiting Vomiting type: unspecified Qualified Code(s): R11.2 - Nausea with vomiting, unspecified (7) Atrial fibrillation Atrial fibrillation type: paroxysmal Qualified Code(s): I48.0 - Paroxysmal atrial fibrillation
[2022-07-10] MEDS ORDERED: CHOLESTYRAMINE LIGHT 4 GM PKT PO PRN (22:28)
[2022-07-10] MEDS ORDERED: ONDANSETRON INJ 2 MG/ML 2 ML VIAL IV PRN (22:28)
[2022-07-10] MEDS ORDERED: CARBOHYDRATES FOR HYPOGLYCEMIA PO PRN (22:28)
[2022-07-10] MEDS ORDERED: DEXTROSE 50% 50 ML SYRINGE IV PRN (22:28)
[2022-07-10] MEDS ORDERED: GLUCOSE 10 TAB/TUBE PO PRN (22:28)
[2022-07-10] MEDS ORDERED: GLUCOSE 40% GEL 15 GM TUBE PO PRN (22:28)
[2022-07-10] MEDS ORDERED: GLUCAGON FOR INJ 1 MG VIAL SQ PRN (22:28)
[2022-07-10] MEDS ORDERED: ACETAMINOPHEN 325 MG TAB PO PRN (22:28)
[2022-07-10] MEDS: INSULIN ASPART PER UNIT CHARGE SC SCH (23:09)
[2022-07-10] MEDS: SODIUM CHLORIDE 0.9% 1000ML 1,000 ML IV SCH (23:23)
[2022-07-10] MEDS: MELATONIN 3 MG TAB PO PRN (23:23)
[2022-07-10] MEDS: APIXABAN 5 MG TABLET PO SCH (23:24)
[2022-07-10] MEDS: DOXAZosin MESYLATE 4 MG TAB PO SCH (23:24)
[2022-07-10] MEDS: buPROPion SR 150 MG TABCR PO SCH (23:25)
[2022-07-11 01:13] LABS: Appearance Urine Clear (Clear); Bacteria Urine Automated Negative (Negative); Bilirubin Urine Negative (Negative); Blood Urine Negative (Negative); Color Urine Yellow; Epithelial Cell Urine Auto 20-30 /lpf (0-5); Glucose Urine UA Negative (Negative); Ketones Urine Negative (Negative); Leukocyte Esterase Urine Trace (Negative); Nitrite Urine Negative (Negative); Protein Urine Negative (Negative); RBC Urine Automated 0-4 /hpf (0-4); Specific Gravity Urine 1.019 (1.000-1.030); Urobilinogen Urine Negative (Negative)
[2022-07-11 02:27] LABS: Adenovirus F 40/41 PCR Not Detected (NotDetected); Astrovirus PCR Not Detected (NotDetected); Campylobacter PCR Not Detected (NotDetected); Cryptosporidium PCR Not Detected (NotDetected); Cyclospora cayetanensis PCR Not Detected (NotDetected); Entamoeba histolytica PCR Not Detected (NotDetected); Enteroaggregative E.coli(EAEC) Not Detected (NotDetected); Enteropathogenic E.coli (EPEC) Not Detected (NotDetected); Enterotoxigenic E.coli (ETEC) Not Detected (NotDetected); Giardia lamblia PCR Not Detected (NotDetected); Norovirus GI/GII PCR Not Detected (NotDetected); Plesiomonas shigelloides PCR Not Detected (NotDetected); Salmonella PCR Not Detected (NotDetected); Sapovirus PCR Not Detected (NotDetected); Shiga-like Toxin E.coli (STEC) Not Detected (NotDetected); Shigella/Enteroinvasive E.coli Not Detected (NotDetected); Vibrio cholerae PCR Not Detected (NotDetected); Vibrio species PCR Not Detected (NotDetected); Yersinia enterocolitica PCR Not Detected (NotDetected)
[2022-07-11 02:29] LABS: Rotavirus A PCR DETECTED (NotDetected)
[2022-07-11] MEDS: SODIUM CHLORIDE 0.9% 1000ML 1,000 ML IV SCH (08:14)
[2022-07-11] MEDS: buPROPion SR 150 MG TABCR PO SCH ×2 (08:18→20:29)
[2022-07-11] MEDS: APIXABAN 5 MG TABLET PO SCH ×2 (08:18→20:29)
[2022-07-11] MEDS: INSULIN ASPART PER UNIT CHARGE SC SCH ×4 (08:29→20:33)
[2022-07-11 09:08] LABS: Basophils # (auto) 0.07 K/uL (0-0.2); Basophils % (auto) 0.4 %; Eosinophils # (auto) 0.06 K/uL (0-0.50); Eosinophils % (auto) 0.4 %; Hematocrit (blood only) 49.4 % (42.0-52.0); Hemoglobin 17.3 g/dl (14.0-18.0); Immature Granulocytes # (auto) 0.07 K/uL (0.01-0.20); Immature Granulocytes % (auto) 0.4 %; Lymphocytes # (auto) 0.83 K/uL (1.2-3.4); Lymphocytes % (auto) 5.2 %; Mean Corpuscular Hemoglobin 30.2 pg (25.0-34.0); Mean Corpuscular Volume 86.4 fL (80.0-100.0); Mean Platelet Volume 9.6 fL (9.4-12.4); Monocytes # (auto) 0.91 K/uL (0.11-0.59); Monocytes % (auto) 5.7 %; Neutrophils # (auto) 14.15 K/uL (1.40-6.50); Neutrophils % (auto) 87.9 %; Platelet Count 551 K/uL (130-400); RDW Coefficient of Variation 14.1 % (11.5-14.5); RDW Standard Deviation 44.3 fL (36.4-46.3); Red Blood Count 5.72 M/uL (4.70-6.10); White Blood Count 16.09 K/ul (4.8-10.8)
[2022-07-11 09:23] LABS: Albumin Globulin Ratio 1.4 (0.9-2); BUN Creatinine Ratio 19.8 (10-20); Bilirubin,Total 1.1 mg/dl (0.2-1.0); Calcium 7.6 mg/dl (8.5-10.1); Creatinine Clr Calc Pharmacy 32.3 ml/min; Est GFR (African American) 35.5 ml/min; Est GFR (Non-African American) 30.6 ml/min; Globulin 2.8 gm/dl (2.5-4.0); Magnesium 1.8 mg/dl (1.7-2.4); Potassium 3.8 mmol/L (3.5-5.1); Total Protein 6.8 gm/dl (6.0-8.3)
[2022-07-11 10:34] LABS: Estimated Average Glucose 166 mg/dl; Hemoglobin A1C 7.4 % (4.5-5.6)
[2022-07-11] MEDS ORDERED: chlorproMAZINE HCL 25 MG/ML AMP IM ONE (12:41)
--- NOTE | 2022-07-11 12:51 | Hospitalist Progress Note ---
Date of Service July 11, 2022 Assessment & Plan (1) Rotavirus enteritis: Plan: Acute gastroeteritis, secondary to Rota virus Still having diarrhea, but much reduced frequency Continue Supportive treatment Zofran 4 mg IV every 6 hours as needed IV fluids Acetaminophen 650 mg by mouth every 6 hours as needed for pain or fever (2) Acute renal failure: Plan: Most likely pre renal due to dehydration from GI losses Creatinine 3.20 upon admission, with base 1.28. Cr 2.00 today Continue NSS at 80 mils per hour Repeat laboratories every morning (3) Diabetes mellitus: Plan: Blood glucose under fair control Hold metformin Placed on Accu-Cheks with NovoLog SSI (4) Atrial fibrillation: Plan: Rate controlled continue Apixaban (5) Diarrhea: (6) Nausea & vomiting: (7) Acute dehydration: (8) Anticoagulant long-term use: Plan Continue hospitalization, Admission and Anticipated Discharge Date Admission Date: July 10, 2022 Subjective patient seen and examined, still having diarrhea, but not as frequent as before Review of Systems Review of Systems: All systems reviewed are negative, apart from the ones contained in the history. Physical Exam Physical Exam: The patient is awake, alert and oriented 3, well developed and well nourished, normocephalic and atraumatic, lying in bed and in no acute distress. HEENT--PERRL, EOMI, mucous membranes and oropharynx mildly dry Neck--supple. No JVD. No bruits. Thyroid normal, trachea midline, no adenopathy. Heart--normal S1 and S2. No murmurs, rubs or gallops. Lungs--clear bilaterally, no respiratory distress, no accessory muscle use. Abdomen--normal bowel sounds and soft. Mild epigastric and left sided abdominal pain Extremities--no cyanosis or clubbing. No edema. Dermatologic--normal skin turgor, normal color, no abnormal lymph nodes, no rash. Neurologic--cranial nerves II through XII grossly intact. Rheumatologic--normal range of motion. Psychiatric--normal affect. Results & Data Results & Data Vital Signs (Past 12 Hours) Vital Signs Temp Pulse Resp BP Pulse Ox O2 Del Method 07/11/22 08:03 98.1 F 80 16 137/76 95 Room Air PG Care Time/CCT Total # of Minutes Spent Total Time Spent with Patient: Total time spent is greater than 50% in coordination of care (as documented) at patient's floor/unit and/or counseling patient: Coding Level of Care Code 94837 SUB INP/OBS CARE MIN Diagnoses Rotavirus enteritis A08.0 Acute renal failure N17.9 Acute renal failure type: unspecified Diabetes mellitus E11.9 Atrial fibrillation I48.0 Atrial fibrillation type: paroxysmal Diarrhea R19.7 Diarrhea type: unspecified type Nausea & vomiting R11.2 Vomiting type: unspecified Acute dehydration E86.0 Anticoagulant long-term use Z79.01 Time Spent (min) 35 (2) Acute renal failure Acute renal failure type: unspecified Qualified Code(s): N17.9 - Acute kidney failure, unspecified (4) Atrial fibrillation Atrial fibrillation type: paroxysmal Qualified Code(s): I48.0 - Paroxysmal atrial fibrillation (5) Diarrhea Diarrhea type: unspecified type Qualified Code(s): R19.7 - Diarrhea, unspecified (6) Nausea & vomiting Vomiting type: unspecified Qualified Code(s): R11.2 - Nausea with vomiting, unspecified
[2022-07-11] MEDS: CITALOPRAM 20 MG TAB PO SCH (13:43)
[2022-07-11] MEDS: chlorproMAZINE HCL 25 MG TAB PO SCH ×2 (13:43→20:30)
[2022-07-11] MEDS: DOXAZosin MESYLATE 4 MG TAB PO SCH (20:29)
[2022-07-11] MEDS: MELATONIN 3 MG TAB PO PRN (20:29)
--- NOTE | 2022-07-12 01:46 | Electrocardiogram Report ---
Test Reason : Blood Pressure : / mmHG Vent. Rate : 097 BPM Atrial Rate : 097 BPM P-R Int : 136 ms QRS Dur : 082 ms QT Int : 346 ms P-R-T Axes : 049 035 072 degrees QTc Int : 439 ms Poor data quality, interpretation may be adversely affected Sinus rhythm Possible Left atrial enlargement Borderline ECG When compared with ECG of 23-DEC-2021 11:11, No significant change Confirmed by Schuyler Garcia ([id number]) on 07/12/2022 1:45:27 AM Referred By: REFERRED SELF Confirmed By:Schuyler Garcia
--- NOTE | 2022-07-12 02:35 | Electrocardiogram Report ---
Test Reason : Blood Pressure : / mmHG Vent. Rate : 082 BPM Atrial Rate : 082 BPM P-R Int : 146 ms QRS Dur : 090 ms QT Int : 374 ms P-R-T Axes : 058 031 057 degrees QTc Int : 436 ms Normal sinus rhythm Normal ECG When compared with ECG of 10-JUL-2022 16:55, No significant change Confirmed by Schuyler Garcia ([id number]) on 07/12/2022 2:35:12 AM Referred By: REFERRED SELF Confirmed By:Schuyler Garcia
[2022-07-12 07:04] LABS: Basophils # (auto) 0.08 K/uL (0-0.2); Basophils % (auto) 0.7 %; Eosinophils # (auto) 0.15 K/uL (0-0.50); Eosinophils % (auto) 1.2 %; Hematocrit (blood only) 50.2 % (42.0-52.0); Hemoglobin 17.5 g/dl (14.0-18.0); Immature Granulocytes # (auto) 0.07 K/uL (0.01-0.20); Immature Granulocytes % (auto) 0.6 %; Lymphocytes # (auto) 0.99 K/uL (1.2-3.4); Lymphocytes % (auto) 8.1 %; Mean Corpuscular Hemoglobin 30.1 pg (25.0-34.0); Mean Corpuscular Hgb Conc 34.9 g/dL (32.0-36.0); Mean Corpuscular Volume 86.4 fL (80.0-100.0); Mean Platelet Volume 9.4 fL (9.4-12.4); Monocytes # (auto) 0.69 K/uL (0.11-0.59); Monocytes % (auto) 5.6 %; Neutrophils # (auto) 10.31 K/uL (1.40-6.50); Neutrophils % (auto) 83.8 %; Platelet Count 513 K/uL (130-400); RDW Coefficient of Variation 14.2 % (11.5-14.5); RDW Standard Deviation 44.9 fL (36.4-46.3); Red Blood Count 5.81 M/uL (4.70-6.10); White Blood Count 12.29 K/ul (4.8-10.8)
[2022-07-12 07:26] LABS: Albumin Globulin Ratio 1.5 (0.9-2); Albumin Level 4.1 gm/dl (3.4-5.0); BUN Creatinine Ratio 20.7 (10-20); Bilirubin,Total 1.1 mg/dl (0.2-1.0); Calcium 7.8 mg/dl (8.5-10.1); Creatinine Clr Calc Pharmacy 47.8 ml/min; Est GFR (Non-African American) 49.1 ml/min; Globulin 2.7 gm/dl (2.5-4.0); Magnesium 1.8 mg/dl (1.7-2.4); Potassium 3.6 mmol/L (3.5-5.1); Total Protein 6.8 gm/dl (6.0-8.3)
[2022-07-12] MEDS: APIXABAN 5 MG TABLET PO SCH (08:44)
[2022-07-12] MEDS: chlorproMAZINE HCL 25 MG TAB PO SCH ×2 (08:44→13:52)
[2022-07-12] MEDS: CITALOPRAM 20 MG TAB PO SCH (08:44)
[2022-07-12] MEDS: buPROPion SR 150 MG TABCR PO SCH (08:45)
[2022-07-12] MEDS: INSULIN ASPART PER UNIT CHARGE SC SCH ×2 (09:38→13:11)
--- NOTE | 2022-07-12 12:27 | Discharge Summary ---
Date of Service July 12, 2022 Admission HPI Per Admitting Provider The patient is a 72-year-old male with a past medical history including diabetes mellitus, atrial fibrillation, hypertension, aortic calcification, long-term anticoagulant use, anxiety with depression, BPH and insomnia. He presents to the emergency department with 2 to 3 days of symptoms as noted above. CT scan of abdomen pelvis was consistent with gastroenteritis and a diarrheal state, and also noted an enlarged prostate Significant laboratories: WBC 25.29, hemoglobin 18.8, hematocrit 52.2, platelets 694, sodium 130, BUN 47, creatinine 3.20, glucose 151 and bicarb 14. COVID-19 testing negative Stool PCR positive for stool rotavirus Patient notes that he has only had 1 bowel movement today, feels like his diarrheal state is slowly improving, however, he feels very dehydrated Principal Diagnosis acute gastro enteritis Discharge Exam The patient is awake, alert and oriented 3, well developed and well nourished, normocephalic and atraumatic, lying in bed and in no acute distress. HEENT--PERRL, EOMI, mucous membranes and oropharynx mildly dry Neck--supple. No JVD. No bruits. Thyroid normal, trachea midline, no adenopathy. Heart--normal S1 and S2. No murmurs, rubs or gallops. Lungs--clear bilaterally, no respiratory distress, no accessory muscle use. Abdomen--normal bowel sounds and soft. Mild epigastric and left sided abdominal pain Extremities--no cyanosis or clubbing. No edema. Dermatologic--normal skin turgor, normal color, no abnormal lymph nodes, no rash. Neurologic--cranial nerves II through XII grossly intact. Rheumatologic--normal range of motion. Psychiatric--normal affect. Discharge Data Allergies Allergy/AdvReac Type Severity Reaction Status Date / Time No Known Drug Allergies Allergy NKDA Verified 07/10/22 20:02 Consultations 07/10/22 20:14 ED Decision to Admit Stat Ordered Studies 07/10/22 18:31 CT Abd and Pelvis [CT abd pelvis wo con] Stat Hospital Course (1) Rotavirus enteritis: Acute gastroeteritis, secondary to Rota virus Only one episode of diarrhea today so far Patient expressed a willingness to be discharged Tolerating general diet and drinking ok (2) Acute renal failure: Now resolved (3) Diabetes mellitus: Blood glucose under fair control Hold metformin Placed on Accu-Cheks with NovoLog SSI (4) Atrial fibrillation: Rate controlled continue Apixaban (5) Diarrhea: (6) Nausea & vomiting: (7) Acute dehydration: (8) Anticoagulant long-term use: Plan Continue hospitalization, Total Time Total Time Spent Total Time Spent (In Minutes): 35 Discharge Plan Discharge Items Patient Disposition: Home - Self-Care Reason For Visit: DIARRHEA, FLORA, DEHYDRATION Discharge Diagnosis: acute gastro enteritis Activity: Resume your previous activity Non-emergency contact: Primary Care Provider Call non-emergency contact if: you have any medication questions Follow-up/Referrals: Orlando Dooley DO [Primary Care Provider] - Diet: Regular Addtl Attending Provider Instructions: please make appointment to follow up with your PCP Pending Studies at Discharge: No Stand-Alone Forms: [employer], Smoking Cessation Medications and DC Order Prescriptions: Continued citalopram 20 mg tablet 20 mg PO DAILY Qty: 90 1RF doxazosin 4 mg tablet 4 mg PO QPM Qty: 90 1RF lisinopril 5 mg tablet 5 mg PO DAILY Qty: 90 1RF metformin 500 mg tablet 500 mg PO BID Qty: 180 1RF melatonin 3 mg tablet 3 mg PO HS PRN (Reason: sleep) 90 Days Qty: 90 3RF bupropion HCl 150 mg tablet sustained-release 12 hr 150 mg PO BID 90 Days Qty: 180 3RF apixaban 5 mg tablet 5 mg PO BID acetaminophen [Tylenol Extra Strength] 500 mg Tablet 1,000 mg PO Q6H PRN (Reason: Pain) Discharge Orders: Discharge Order (Routine); Ordered 07/12/22 Ordered By: Jonathan Khan Admission Data Admit Date/Time: 07/10/22 20:28 Attending Provider: Jonathan Khan Admit Provider: Jorgito Lopez Primary Care Provider: Orlando Dooley Other Providers: Jorgito Lopez Coding Level of Care Code 35393 INP/OBS DISCH >30 MIN Diagnoses Rotavirus enteritis A08.0 Acute renal failure N17.9 Acute renal failure type: unspecified Diabetes mellitus E11.9 Atrial fibrillation I48.0 Atrial fibrillation type: paroxysmal Diarrhea R19.7 Diarrhea type: unspecified type Nausea & vomiting R11.2 Vomiting type: unspecified Acute dehydration E86.0 Anticoagulant long-term use Z79.01 Time Spent (min) 35
[2022-07-14 10:38] LABS: A calco-baum cmplx NotReported Not Detected (NotDetected); Bact fragilis Not Reported Not Detected (NotDetected); C auris Not Reported Not Detected (NotDetected); Calbicans Not Reported Not Detected (NotDetected); Candida glabrata Not Reported Not Detected (NotDetected); Candida krusei Not Reported Not Detected (NotDetected); Cneoformans/gatti Not Reported Not Detected (NotDetected); Cparapsilosis Not Reported Not Detected (NotDetected); Ctropicalis Not Reported Not Detected (NotDetected); E cloacae compx Not Reported Not Detected (NotDetected); Efaecalis Not Reported Not Detected (NotDetected); Efaecium Not Reported Not Detected (NotDetected); Enterobacterales Not Reported Not Detected (NotDetected); Escherichia coli Not Reported Not Detected (NotDetected); H influenzae Not Reported Not Detected (NotDetected); K aerogenes Not Reported Not Detected (NotDetected); Koxytoca Not Reported Not Detected (NotDetected); Kpneumoniae grp Not Reported Not Detected (NotDetected); Lmonocyt Not Reported Not Detected (NotDetected); N meningitidis Not Reported Not Detected (NotDetected); P aeruginosa Not Reported Not Detected (NotDetected); Proteus spp Not Reported Not Detected (NotDetected); Salmonella spp Not Reported Not Detected (NotDetected); Smarcescens Not Reported Not Detected (NotDetected); Staph lugdunensis Not Reported Not Detected (NotDetected); Staph spp. Not Reported Not Detected (NotDetected); Staphaureus Not Reported Not Detected (NotDetected); Staphepi Not Reported Not Detected (NotDetected); Stenmaltophilia Not Reported Not Detected (NotDetected); Strep agal(GrpB) Not Reported Not Detected (NotDetected); Strep pneum Not Reported Not Detected (NotDetected); Strep pyog (GrpA) Not Reported Not Detected (NotDetected); Strep spp Not Reported Not Detected (NotDetected)
--- NOTE | 2022-07-14 11:10 | Pharmacy Report ---
ED Pharmacist Culture FollowUP - Culture Follow Up Note Date of Service: July 14, 2022 Notes:: Informed by charge nurse of + blood culture, 04/30. BCID2 negative. 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
== END 2022-07-12 15:37 | disposition home or self-care (01) | DRG 683 ==
LOC: ED 16:37 → 3W 20:28 → SUATTDRO 20:28 → 3W 21:40
DX: F41.8 Other specified anxiety disorders; I48.91 Unspecified atrial fibrillation; I10 Essential (primary) hypertension; E11.9 Type 2 diabetes mellitus without complications; Z79.84 Long term (current) use of oral hypoglycemic drugs; A08.0 Rotaviral enteritis; N17.9 Acute kidney failure, unspecified; E86.0 Dehydration; G47.00 Insomnia, unspecified; Z87.891 Personal history of nicotine dependence; Z79.01 Long term (current) use of anticoagulants; N40.0 Benign prostatic hyperplasia without lower urinary tract symptoms; R06.6 Hiccough; Z79.899 Other long term (current) drug therapy

== ENCOUNTER 2023-06-05 16:48 | Inpatient (IN) ==
--- NOTE | 2023-06-05 17:23 | Emergency Department Note ---
History of Present Illness General Chief complaint: Abdominal Pain Time Seen by Provider: 06/05/23 17:05 History of Present Illness 73-year-old male presents emergency department onset of diffuse abdominal pain that started at approximately noon today. Patient states that he was eating a lot of peanuts last night. Patient states that the pain became diffuse at around noon there is no associated vomiting there is no diarrhea. Patient's had a prior history of diverticular surgery with multiple surgeries and colostomy with reanastomosis. This was approximately 10 years ago. Patient has not had a bowel obstruction from the surgeries. Patient states currently the pain is a 0 out of 10 however he was given fentanyl by EMS prior to arrival. Patient denies fever. There are no other mitigating or alleviating factors Home Medications Medication Instructions Recorded Confirmed Type bupropion HCl 150 mg tablet,12 hr 150 mg PO BID 90 days #180 ea 06/16/22 06/05/23 Rx sustained-release melatonin 3 mg tablet 3 mg PO HS PRN sleep 90 days #90 06/16/22 06/05/23 Rx tabs acetaminophen 500 mg tablet 1,000 mg PO Q6H PRN Pain 07/10/22 06/05/23 History (Tylenol Extra Strength) citalopram 20 mg tablet 20 mg PO QAM 10/23/22 06/05/23 History apixaban 5 mg tablet 5 mg PO BID #180 tabs 11/24/22 06/05/23 Rx tramadol 50 mg tablet 50 mg PO TID PRN pain #30 tabs 02/17/23 06/05/23 Rx doxazosin 4 mg tablet 4 mg PO QPM #90 tabs 03/24/23 06/05/23 Rx levalbuterol tartrate 45 1 puff inhalation Q6H PRN 04/07/23 06/05/23 History mcg/actuation aerosol inhaler Shortness Of Breath Or Wheezing ferrous fumarate 325 mg (106 mg 325 mg PO QAM 05/20/23 06/05/23 History iron) tablet mecobalamin (vitamin B12) 1,000 1,000 mcg PO QAM 05/20/23 06/05/23 History mcg chewable tablet (B12 Active) atorvastatin 80 mg tablet 80 mg PO QAM 06/05/23 06/05/23 History fluticasone fur. 100 mcg-umeclid 1 inh inhalation QAM 06/05/23 06/05/23 History 62.5 mcg-vilant 25 mcg inhalat.powder (Trelegy Ellipta) lisinopril 2.5 mg tablet 2.5 mg PO QAM 06/05/23 06/05/23 History metformin 500 mg tablet 500 mg PO BID 06/05/23 06/05/23 History Allergies Allergy/AdvReac Type Severity Reaction Status Date / Time No Known Drug Allergies Allergy NKDA Verified 06/05/23 20:42 Past Med/Surg History Medical History Transient ischemic attack Per records Diabetic neuropathy Hypertension Diabetes mellitus, type 2 PAD (peripheral artery disease) Thrombocytosis Chronic, baseline platelets 500s for past 1+ year Leukocytosis Chronic x 1+ year Pulmonary nodule Under surveillance Hyperbilirubinemia History of diverticulitis History of cholelithiasis Anxiety Osteoarthritis HLD (hyperlipidemia) Sleep apnea CPAP Weak urinary stream Urinary urgency Atrial fibrillation Follows with [facility] cardio Surgical History History of cardioversion Approximately 2018 History of wisdom tooth extraction History of tonsillectomy History of cataract surgery R/L Status post colostomy History of colostomy reversal History of bowel resection History of colonoscopy Family History Father Myocardial infarction Grandfather (Maternal) Myocardial infarction Other Hearing loss Heart disease Hypertension No family history of adverse response to anesthesia No family history of bleeding disorder Denies family history of Ovarian cancer Prostate cancer Breast cancer Lung cancer Colorectal cancer Social History Smoking Status: Former smoker Tobacco Type: Cigarettes Second Hand Exposure: Yes (as a child); Do You Dip or Chew Tobacco: No; Hx Alcohol Use: Yes Alcohol type: beer and wine Alcohol Intake Frequency: Monthly or Less Preferred Language: Citizen Of [place] Communication Ability: Effective Visual Impairment: Limited Hearing Ability: Normal Cosmetologist Apprentice Required: No Beliefs That Will Affect Care: None marital status: Single Current Living Situation: Spouse current occupational status: employed 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 Feels Safe at Home: Yes Childhood Exposure to Second-Hand Smoke: No Diet: regular caffeine: No Dental Care, Regularly: Yes Physical Activity Frequency: Daily Seatbelt Use: always Sunscreen Use: No Assistive Devices: CPAP and Glasses Review of Systems A total of 10 systems reviewed and were otherwise negative Gastrointestinal: + abdominal pain; no nausea and no vomiting Physical Exam Vital Signs Vital Signs - 24 hr 06/05/23 16:50 06/05/23 17:39 06/05/23 17:41 Temperature 37.8 C H Temperature Source Oral Pulse Rate 84 74 77 Pulse Rate [Right Finger] Respiratory Rate 12 Respiratory Effort / Characteristics Non-Labored Respiratory Depth Normal Respiratory Pattern Blood Pressure 140/88 Blood Pressure [Right Arm] Blood Pressure Mean 105 Blood Pressure Mean [Right Arm] Pulse Oximetry 95 93 Oxygen Delivery Method Room Air Room Air Sepsis Recent Fever Within 48 Hours No Sepsis New/Unexplained Change in Mental Status N/A Sepsis Action Taken by Nursing No Action Required 06/05/23 18:01 06/05/23 19:16 06/05/23 20:32 Temperature Temperature Source Pulse Rate Pulse Rate [Right Finger] 76 74 66 Respiratory Rate 16 16 17 Respiratory Effort / Characteristics Non-Labored Non-Labored Spontaneous Respiratory Depth Normal Normal Respiratory Pattern Regular Blood Pressure Blood Pressure [Right Arm] 131/96 149/88 H 163/84 H Blood Pressure Mean Blood Pressure Mean [Right Arm] 107 108 110 Pulse Oximetry 98 95 97 Oxygen Delivery Method Room Air Room Air Room Air Sepsis Recent Fever Within 48 Hours Sepsis New/Unexplained Change in Mental Status Sepsis Action Taken by Nursing 06/05/23 21:18 Temperature Temperature Source Pulse Rate 71 Pulse Rate [Right Finger] Respiratory Rate Respiratory Effort / Characteristics Respiratory Depth Respiratory Pattern Blood Pressure Blood Pressure [Right Arm] Blood Pressure Mean Blood Pressure Mean [Right Arm] Pulse Oximetry Oxygen Delivery Method Sepsis Recent Fever Within 48 Hours Sepsis New/Unexplained Change in Mental Status Sepsis Action Taken by Nursing GENERAL: Patient is awake alert in no acute distress patient is resting comfortably and showing no signs of anxiety EYES: The conjunctivae are clear. The pupils are round and reactive. EARS, NOSE, MOUTH AND THROAT: The nose is without any evidence of any deformity. Mucous membranes are moist. Tongue is midline. NECK: The neck is nontender and supple. RESPIRATORY: Normal respiratory effort is noted there is no evidence of wheezing rhonchi or rales CARDIOVASCULAR: Regular rate and rhythm noted there no murmurs rubs or gallops normal S1 normal S2. GASTROINTESTINAL: The abdomen is soft. Abdomen is nontender. Patient has multiple surgical scars that are in all quadrants there is no masses palpated; decreased bowel sounds present BACK: No midline tenderness or or step-off noted range of motion in flexion extension as well as rotation no signs of muscle spasm noted MUSCULOSKELETAL/EXTREMITIES: There is no evidence of gross deformity full range of motion is noted in the hips and shoulders. SKIN: There is no obvious evidence of any rash. There are no petechiae, pallor or cyanosis noted. NEUROLOGIC: Patient is awake alert and oriented x3 strength is symmetric Course Reevaluation(s) Reevaluation #1: Patient was started on IV fluids was given IV fentanyl. Patient will be admitted for bowel obstruction Time: 19:51 Reevaluation #2: I discussed evaluation with the patient the CAT scan results. Stated that he has a bowel obstruction. Stated to him that he would be admitted to the hospital; he has no current significant abdominal pain or vomiting Time: 20:22 Consultations Consultation #1: Case was discussed with Dr. Turner from surgery regarding the patient's presentation and the CT showing a bowel obstruction Time: :51 Consultation #2: Case was discussed with the [facility] Hospitalist for admission for a bowel obstruction Time: 20:22 Administered Medications Discontinued Medications Fentanyl Citrate (Fentanyl Citrate Pf 100 Mcg/2 Ml Vial) 50 mcg IV NOW STA Stop: 06/05/23 19:41 Last Admin: 06/05/23 19:49 Dose: 50 mcg Documented By: MARCO Sodium Chloride (Nss) 1,000 mls @ 999 mls/hr IV .Q1H1M ONE Stop: 06/05/23 18:18 Last Infusion: 06/05/23 20:24 Dose: Infused Documented By: Admin: 06/05/23 18:21 Dose: 999 mls/hr Documented By: JAY Ioversol (Optiray 320 500ml) 89 ml IV ONCE ONE Stop: 06/05/23 18:50 Last Admin: 06/05/23 18:49 Dose: 89 ml Documented By: LINDA Medical Decision Making Medical Records Attestation: I reviewed the patient's medical records. Home Medications Current Medication List: was personally reviewed by me Laboratory Data Attestation: I reviewed the patient's lab results. Labs interpreted by me patient has an elevated white blood cell count, elevated blood sugar 06/05/23 17:40 06/05/23 17:40 Lab Results 06/05/23 06/05/23 Range/Units 17:40 18:19 WBC 20.92 H (4.8-10.8) K/ul RBC 5.89 (4.70-6.10) M/uL Hgb 17.5 (14.0-18.0) g/dl Hct 50.1 (42.0-52.0) % MCV 85.1 (80.0-100.0) fL MCH 29.7 (25.0-34.0) pg MCHC 34.9 (32.0-36.0) g/dL RDW Std Deviation 41.7 (36.4-46.3) fL RDW Coeff of Johnathan 13.5 (11.5-14.5) % Plt Count 598 H (130-400) K/uL MPV 9.9 (9.4-12.4) fL Immature Gran % (Auto) 0.6 % Neut % (Auto) 89.3 % Lymph % (Auto) 5.3 % [place] % (Auto) 2.3 % Eos % (Auto) 1.4 % Baso % (Auto) 1.1 % Neut # (Auto) 18.68 H (1.40-6.50) K/uL Lymph # (Auto) 1.11 L (1.20-3.40) K/uL [place] # (Auto) 0.48 (0.11-0.59) K/uL Eos # (Auto) 0.29 (0.00-0.50) K/uL Baso # (Auto) 0.23 H (0.00-0.20) K/uL Immature Gran # (Auto) 0.13 (0.01-0.20) K/uL Sodium 135 L (136-145) mmol/L Potassium 4.6 (3.5-5.1) mmol/L Chloride 102 (98-107) mmol/L Carbon Dioxide 24 (21-32) mmol/L Anion Gap 9 (3-11) BUN 25 H (6-23) mg/dl Creatinine 1.28 (0.6-1.4) mg/dl Est Cr Clr Drug Dosing 58.2 ml/min Est GFR ( Amer) 63.0 ml/min Est GFR (Non-Af Amer) 54.4 ml/min BUN/Creatinine Ratio 19.5 (10-20) Glucose 253 H (70-99(Fasting)) mg/dl Calcium 9.7 (8.6-10.3) mg/dl Total Bilirubin 1.9 H (0.2-1.0) mg/dl AST 17 (13-39) U/L ALT 11 (7-52) U/L Alkaline Phosphatase 84 (34-104) U/L Troponin I High Sens 6.8 (0-20) pg/ml Total Protein 7.0 (6.0-8.3) gm/dl Albumin 4.2 (3.4-5.0) gm/dl Globulin 2.8 (2.5-4.0) gm/dl Albumin/Globulin Ratio 1.5 (0.9-2) Lipase 55 (11-82) U/L Urine Color Dark Yellow Urine Appearance Clear (Clear) Urine pH 6.5 (4.5-7.5) Ur Specific Eleva 1.028 (1.000-1.030) Urine Protein Negative (Negative) Urine Glucose (UA) 3+ H (Negative) Urine Ketones Trace H (Negative) Urine Blood Negative (Negative) Urine Nitrite Negative (Negative) Urine Bilirubin Negative (Negative) Urine Urobilinogen Negative (Negative) Ur Leukocyte Esterase 2+ H (Negative) Urine WBC (Auto) 10-30 H (0-5) /hpf Urine RBC (Auto) 0-4 (0-4) /hpf U Hyaline Cast (Auto) 1-5 (0-5) /lpf U Epithel Cells (Auto) 10-20 H (0-5) /lpf Urine Bacteria (Auto) Negative (Negative) Imaging Data Attestation: I personally reviewed and interpreted this imaging study as follows: My Impression: Chest x-ray interpreted by me negative for infiltrate Radiologist's Impression: Chest X-Ray 06/05/23 17:06 SINGLE VIEW CHEST CLINICAL HISTORY: Generalized abdominal pain. FINDINGS: 2 AP, portable, upright chest radiographs are compared to study dated 04/06/2023. The heart is mildly enlarged noting atherosclerotic calcification of the thoracic aorta. Emphysema and chronic interstitial thickening is similar to previous. No airspace consolidation or large pleural effusion is identified. No pneumothorax is seen. The skeletal structures are osteopenic. The bony thorax is grossly intact. Degenerative change is noted in the spine. IMPRESSION: Cardiomegaly and emphysema with no active disease in the chest. ACT 112: Negative or not required by law. Electronically signed by: Piotr Park M.D. 06/05/2023 6:28 PM Abdomen/Pelvis CT 06/05/23 17:17 Exam(s): CT ABDOMEN + PELVIS With Contrast IV Amt: 89ML OPTIRAY 320 EXAM: CT Abdomen and Pelvis With Intravenous Contrast CLINICAL HISTORY: Reason for exam: abd pain. TECHNIQUE: Axial computed tomography images of the abdomen and pelvis with intravenous contrast. CTDI is 24 mGy and DLP is 1254.92 mGy-cm. Automated exposure control was utilized for the study. A dose lowering technique was utilized adhering to the principles of ALARA. CONTRAST: Patient received 89ML OPTIRAY 320 of IV contrast COMPARISON: 02/20/2023 FINDINGS: ABDOMEN: Liver: Unremarkable. Gallbladder and bile ducts: Cholecystectomy. Pancreas: Unremarkable. Spleen: Unremarkable. Adrenals: Unremarkable. Kidneys and ureters: Unremarkable. No obstructing stones. No hydronephrosis. Stomach and bowel: Distended small bowel loops measuring up to 4 cm. The distal small bowel is decompressed. Findings are consistent with small bowel obstruction. Transition point subjacent to the ventral abdominal wall. Ventral hernia containing a knuckle of nonobstructed transverse colon. Intact anastomosis within the rectum. PELVIS: Appendix: No findings to suggest acute appendicitis. Bladder: Unremarkable. Reproductive: Prostate is enlarged measuring 7.2 cm. ABDOMEN and PELVIS: Intraperitoneal space: Unremarkable. No free air. No significant fluid collection. Bones/joints: Degenerative changes within the spine. Soft tissues: See above. Vasculature: Aortobiiliac atherosclerotic calcifications. Lymph nodes: Unremarkable. IMPRESSION: 1. Small bowel obstruction. 2. Ventral hernia containing a knuckle of nonobstructed transverse colon. 3. Prostatomegaly. Electronically signed by: Johnathan Camacho MD 06/05/23 19:35 PM ECG Data Attestation: I personally reviewed and interpreted this ECG as follows: Additional Comments: EKG interpreted by me normal sinus rhythm, normal intervals normal axis, no obvious ST segment elevation or depression rate of 69 Telemetry was ordered by me, interpreted as sinus rhythm rate of 69 MDM Narrative Medical decision making differential diagnosis includes small bowel obstruction, gastritis, gastroenteritis, diverticulitis,, dehydration electrolyte abnormality Plan is to check labs, EKG, CT abdomen pelvis I reviewed a H&P from Dr. Colon of April 07, 2023 in which the patient vascular surgery. Patient was found to have a bowel obstruction; case was discussed with general surgeon. Patient will be admitted to the hospital. Patient is not in septic shock at the time of admission. Patient's n.p.o. receiving IV fluids and IV pain medicine. Impression & Plan SBO (small bowel obstruction) Discharge Plan Visit Data Chief Complaint: Abdominal Pain ED Provider: [place] Allen Discharge Problem: SBO (small bowel obstruction) Patient Disposition: Admitted As Inpatient Forms Stand Alone Forms: [facility] Prescriptions Prescriptions: No Action melatonin 3 mg tablet 3 mg PO HS PRN (Reason: sleep) 90 Days Qty: 90 3RF bupropion HCl 150 mg tablet sustained-release 12 hr 150 mg PO BID 90 Days Qty: 180 3RF apixaban 5 mg tablet 5 mg PO BID Qty: 180 3RF doxazosin 4 mg tablet 4 mg PO QPM Qty: 90 1RF ferrous fumarate 325 mg (106 mg iron) tablet 325 mg PO QAM mecobalamin (vitamin B12) [B12 Active] 1,000 mcg tablet,chewable 1,000 mcg PO QAM tramadol 50 mg tablet 50 mg PO TID PRN (Reason: pain) Qty: 30 0RF acetaminophen [Tylenol Extra Strength] 500 mg Tablet 1,000 mg PO Q6H PRN (Reason: Pain) citalopram 20 mg tablet 20 mg PO QAM levalbuterol tartrate 45 mcg/actuation HFA aerosol inhaler 1 puff inhalation Q6H PRN (Reason: Shortness Of Breath Or Wheezing) Patient Comments: uses prn metformin 500 mg tablet 500 mg PO BID Rx Instructions: Take 1 tablet by mouth twice daily atorvastatin 80 mg tablet 80 mg PO QAM Patient Comments: "stopped taking, I think" not sure lisinopril 2.5 mg tablet 2.5 mg PO QAM Trelegy Ellipta 100-62.5-25 mcg blister with device 1 inh inhalation QAM Referrals Referrals: Orlando Dooley DO [Primary Care Provider] -
[2023-06-05 18:01] LABS: Basophils # (auto) 0.23 K/uL (0.00-0.20); Basophils % (auto) 1.1 %; Eosinophils # (auto) 0.29 K/uL (0.00-0.50); Eosinophils % (auto) 1.4 %; Hematocrit (blood only) 50.1 % (42.0-52.0); Hemoglobin 17.5 g/dl (14.0-18.0); Immature Granulocytes # (auto) 0.13 K/uL (0.01-0.20); Immature Granulocytes % (auto) 0.6 %; Lymphocytes # (auto) 1.11 K/uL (1.20-3.40); Lymphocytes % (auto) 5.3 %; Mean Corpuscular Hemoglobin 29.7 pg (25.0-34.0); Mean Corpuscular Hgb Conc 34.9 g/dL (32.0-36.0); Mean Corpuscular Volume 85.1 fL (80.0-100.0); Mean Platelet Volume 9.9 fL (9.4-12.4); Monocytes # (auto) 0.48 K/uL (0.11-0.59); Monocytes % (auto) 2.3 %; Neutrophils # (auto) 18.68 K/uL (1.40-6.50); Neutrophils % (auto) 89.3 %; Platelet Count 598 K/uL (130-400); RDW Coefficient of Variation 13.5 % (11.5-14.5); RDW Standard Deviation 41.7 fL (36.4-46.3); Red Blood Count 5.89 M/uL (4.70-6.10); White Blood Count 20.92 K/ul (4.8-10.8)
[2023-06-05 18:19] LABS: Albumin Globulin Ratio 1.5 (0.9-2); Albumin Level 4.2 gm/dl (3.4-5.0); BUN Creatinine Ratio 19.5 (10-20); Bilirubin,Total 1.9 mg/dl (0.2-1.0); Calcium 9.7 mg/dl (8.6-10.3); Creatinine Clr Calc Pharmacy 58.2 ml/min; Est GFR (Non-African American) 54.4 ml/min; Globulin 2.8 gm/dl (2.5-4.0); Potassium 4.6 mmol/L (3.5-5.1)
[2023-06-05] MEDS: SODIUM CHLORIDE 0.9% 1,000 ML IV ONE (18:21)
[2023-06-05 18:23] LABS: Troponin I High Sensitivity 6.8 pg/ml (0-20)
--- NOTE | 2023-06-05 18:30 | XRay Report ---
SINGLE VIEW CHEST CLINICAL HISTORY: Generalized abdominal pain. FINDINGS: 2 AP, portable, upright chest radiographs are compared to study dated 04/06/2023. The heart is mildly enlarged noting atherosclerotic calcification of the thoracic aorta. Emphysema and chronic interstitial thickening is similar to previous. No airspace consolidation or large pleural effusion is identified. No pneumothorax is seen. The skeletal structures are osteopenic. The bony thorax is gr ossly intact. Degenerative change is noted in the spine. IMPRESSION: Cardiomegaly and emphysema with no active disease in the chest. ACT 112: Negative or not required by law. Electronically signed by: Piotr Park M.D. 06/05/2023 6:28 PM
[2023-06-05 18:34] LABS: Appearance Urine Clear (Clear); Bacteria Urine Automated Negative (Negative); Bilirubin Urine Negative (Negative); Blood Urine Negative (Negative); Color Urine Dark Yellow; Glucose Urine UA 3+ (Negative); Ketones Urine Trace (Negative); Leukocyte Esterase Urine 2+ (Negative); Nitrite Urine Negative (Negative); Protein Urine Negative (Negative); RBC Urine Automated 0-4 /hpf (0-4); Specific Gravity Urine 1.028 (1.000-1.030); Urobilinogen Urine Negative (Negative); pH Urine 6.5 (4.5-7.5)
[2023-06-05] MEDS: OPTIRAY 320 500ml IV ONE (18:49)
--- NOTE | 2023-06-05 19:36 | CT Scan Report ---
Exam(s): CT ABDOMEN + PELVIS With Contrast IV Amt: 89ML OPTIRAY 320 EXAM: CT Abdomen and Pelvis With Intravenous Contrast CLINICAL HISTORY: Reason for exam: abd pain. TECHNIQUE: Axial computed tomography images of the abdomen and pelvis with intravenous contrast. CTDI is 24 mGy and DLP is 1254.92 mGy-cm. Automated exposure control was utilized for the study. A dose lowering technique was utilized adhering to the principles of ALARA. CONTRAST: Patient received 89ML OPTIRAY 320 of IV contrast COMPARISON: 02/20/2023 FINDINGS: ABDOMEN: Liver: Unremarkable. Gallbladder and bile ducts: Cholecystectomy. Pancreas: Unremarkable. Spleen: Unremarkable. Adrenals: Unremarkable. Kidneys and ureters: Unremarkable. No obstructing stones. No hydronephrosis. Stomach and bowel: Distended small bowel loops measuring up to 4 cm. The distal small bowel is decompressed. Findings are consistent with small bowel obstruction. Transition point subjacent to the ventral abdominal wall. Ventral hernia containing a knuckle of nonobstructed transverse colon. Intact anastomosis within the rectum. PELVIS: Appendix: No findings to suggest acute appendicitis. Bladder: Unremarkable. Reproductive: Prostate is enlarged measuring 7.2 cm. ABDOMEN and PELVIS: Intraperitoneal space: Unremarkable. No free air. No significant fluid collection. Bones/joints: Degenerative changes within the spine. Soft tissues: See above. Vasculature: Aortobiiliac atherosclerotic calcifications. Lymph nodes: Unremarkable. IMPRESSION: 1. Small bowel obstruction. 2. Ventral hernia containing a knuckle of nonobstructed transverse colon. 3. Prostatomegaly. Electronically signed by: Johnahtan Camacho MD 06/05/23 19:35 PM
[2023-06-05] MEDS: fentaNYL citrate PF 100 MCG/2 ML VIAL IV STA (19:49)
--- NOTE | 2023-06-05 21:07 | History & Physical Report ---
Date of Service June 05, 2023 Assessment & Plan (1) SBO (small bowel obstruction): (2) History of bowel resection: (3) Atrial fibrillation: (4) History of diverticulitis: (5) Hypertension: (6) Diabetes mellitus, type 2: (7) PAD (peripheral artery disease): (8) Sleep apnea: (9) History of colostomy reversal: Plan Small bowel obstruction/history of bowel resection/history of colostomy and reversal/history of diverticulitis- NPO Symptoms seem to have been precipitated by ingestion of a large volume of peanuts the previous night LR at 80 mL/h, after having received 1 L normal saline bolus from the ED Acetaminophen 1 g IV every 8 hours as needed for mild pain or fever Zofran 4 mg IV every 6 hours as needed Pantoprazole 40 mg IV daily Zosyn 4.5 g IV every 8 hours General surgery consult Peripheral arterial disease/hypertension/atrial fibrillation- Hold apixaban, lisinopril while n.p.o. Start heparin drip low-dose without bolus and follow serially Diabetes mellitus- Hold metformin Placed on Accu-Cheks with NovoLog SSI COPD- Continue Trelegy Ellipta, levalbuterol tartrate every 6 hours as needed And DuoNebs every 2 hours as needed Depression- While n.p.o., holding bupropion, citalopram, melatonin History of Present Illness Chief Complaint: The patient presents to the emergency department with complaint of acute onset of generalized abdominal pain and nausea without vomiting, that occurred after eating a lot of peanuts the previous evening Primary Care Provider: Orlando Dooley DO The patient is a 73-year-old male with a past medical history including diabetic foot infection, osteomyelitis, sleep apnea, hyperlipidemia, depression, hypertension, and PAD on apixaban. He presents to the emergency department with abdominal pain after eating excessive on the PA-C previous evening. CT scan of abdomen pelvis consistent with small bowel obstruction. From the ED patient received normal saline 1 L and fentanyl 50 mcg IV. Patient reports history of abdominal surgeries, including placement of a colostomy, and later reversal. Allergies Allergy/AdvReac Type Severity Reaction Status Date / Time No Known Drug Allergies Allergy NKDA Verified 06/05/23 20:42 Home Medications Medication Instructions Recorded Confirmed Type bupropion HCl 150 mg tablet,12 hr 150 mg PO BID 90 days #180 ea 06/16/22 06/05/23 Rx sustained-release melatonin 3 mg tablet 3 mg PO HS PRN sleep 90 days #90 06/16/22 06/05/23 Rx tabs acetaminophen 500 mg tablet 1,000 mg PO Q6H PRN Pain 07/10/22 06/05/23 History (Tylenol Extra Strength) citalopram 20 mg tablet 20 mg PO QAM 10/23/22 06/05/23 History apixaban 5 mg tablet 5 mg PO BID #180 tabs 11/24/22 06/05/23 Rx tramadol 50 mg tablet 50 mg PO TID PRN pain #30 tabs 02/17/23 06/05/23 Rx doxazosin 4 mg tablet 4 mg PO QPM #90 tabs 03/24/23 06/05/23 Rx levalbuterol tartrate 45 1 puff inhalation Q6H PRN 04/07/23 06/05/23 History mcg/actuation aerosol inhaler Shortness Of Breath Or Wheezing ferrous fumarate 325 mg (106 mg 325 mg PO QAM 05/20/23 06/05/23 History iron) tablet mecobalamin (vitamin B12) 1,000 1,000 mcg PO QAM 05/20/23 06/05/23 History mcg chewable tablet (B12 Active) atorvastatin 80 mg tablet 80 mg PO QAM 06/05/23 06/05/23 History fluticasone fur. 100 mcg-umeclid 1 inh inhalation QAM 06/05/23 06/05/23 History 62.5 mcg-vilant 25 mcg inhalat.powder (Trelegy Ellipta) lisinopril 2.5 mg tablet 2.5 mg PO QAM 06/05/23 06/05/23 History metformin 500 mg tablet 500 mg PO BID 06/05/23 06/05/23 History Past Med/Surg History Medical History (Updated 06/06/23 @ 04:24 by Jorgito Lopez MD) Hypertension Diabetes mellitus, type 2 PAD (peripheral artery disease) Atrial fibrillation [place] [facility] [place] Transient ischemic attack Per records Diabetic neuropathy Thrombocytosis Chronic, baseline platelets 500s for past 1+ year Leukocytosis Chronic x 1+ year Pulmonary nodule Under surveillance Hyperbilirubinemia History of diverticulitis History of cholelithiasis Anxiety Osteoarthritis HLD (hyperlipidemia) Sleep apnea CPAP Weak urinary stream Urinary urgency Surgical History (Updated 06/06/23 @ 04:24 by Jorgito Lopez MD) History of cardioversion Approximately 2018 History of wisdom tooth extraction History of tonsillectomy History of cataract surgery R/L Status post colostomy History of colostomy reversal History of bowel resection History of colonoscopy Family History Father Myocardial infarction Grandfather (Maternal) Myocardial infarction Other Hearing loss Heart disease Hypertension No family history of adverse response to anesthesia No family history of bleeding disorder Denies family history of Ovarian cancer Prostate cancer Breast cancer Lung cancer Colorectal cancer Social History Smoking Status: Former smoker Tobacco Type: Cigarettes Second Hand Exposure: Yes (as a child); Do You Dip or Chew Tobacco: No; Hx Alcohol Use: No Hx Substance Use: No Preferred Language: French Communication Ability: Effective Visual Impairment: Limited Hearing Ability: Normal Hydrogen Treater Required: No Beliefs That Will Affect Care: None marital status: Single Current Living Situation: Spouse current occupational status: employed 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 Feels Safe at Home: Yes Safety Concerns: Feels Safe At This Time Childhood Exposure to Second-Hand Smoke: No Diet: regular caffeine: No Dental Care, Regularly: Yes Physical Activity Frequency: Daily Seatbelt Use: always Sunscreen Use: No Assistive Devices: Glasses Review of Systems Review of Systems: The patient denies chest pain, palpitations, shortness of breath, dyspnea on exertion, cough, lower extremity swelling, sore throat, fevers, chills, sweats, weight change, vomiting, blood in urine or stool, dysuria, urinary frequency or urgency, lightheadedness, dizziness, headache, memory loss, loss of consciousness, rash, abnormal bruising or bleeding, imbalance, focal or generalized weakness, numbness or tingling in arms or legs, generalized arthralgias or myalgias, back or neck pain, or night sweats. The review of systems is otherwise negative other than for that already noted above, and at least 10 systems have been reviewed. Physical Exam Physical Exam: The patient is awake, alert and oriented 3, well developed and well nourished, normocephalic and atraumatic, lying in bed and in no acute distress. HEENT--PERRL, EOMI, mucous membranes and oropharynx mildly dry. Neck--supple. No JVD. No bruits. Thyroid normal, trachea midline, no adenopathy. Heart--normal S1 and S2. No murmurs, rubs or gallops. Lungs--clear bilaterally, no respiratory distress, no accessory muscle use. Abdomen--decreased bowel sounds. Generalized tenderness. Mildly distended Extremities--No edema. There are good distal pulses b/l. Dermatologic--normal skin turgor, normal color, no abnormal lymph nodes, no rash. Neurologic--cranial nerves II through XII grossly intact. Rheumatologic--normal range of motion. Psychiatric--normal affect. Results & Data Results & Data Vital Signs (Past 12 Hours) Vital Signs Temp Pulse Pulse Resp BP BP Pulse Ox 06/05/23 20:32 66 17 163/84 H 97 06/05/23 19:16 74 16 149/88 H 95 06/05/23 18:01 76 16 131/96 98 06/05/23 17:41 77 06/05/23 17:39 74 93 06/05/23 16:50 37.8 C H 84 12 140/88 95 O2 Del Method 06/05/23 20:32 Room Air 06/05/23 19:16 Room Air 06/05/23 18:01 Room Air 06/05/23 17:41 06/05/23 17:39 Room Air 06/05/23 16:50 Room Air Laboratory Results Laboratory Results WBC 20.92 K/ul (4.8-10.8) H 06/05/23 17:40 RBC 5.89 M/uL (4.70-6.10) 06/05/23 17:40 Hgb 17.5 g/dl (14.0-18.0) 06/05/23 17:40 Hct 50.1 % (42.0-52.0) 06/05/23 17:40 MCV 85.1 fL (80.0-100.0) 06/05/23 17:40 MCH 29.7 pg (25.0-34.0) 06/05/23 17:40 MCHC 34.9 g/dL (32.0-36.0) 06/05/23 17:40 RDW Std Deviation 41.7 fL (36.4-46.3) 06/05/23 17:40 RDW Coeff of Johnathan 13.5 % (11.5-14.5) 06/05/23 17:40 Plt Count 598 K/uL (130-400) H 06/05/23 17:40 MPV 9.9 fL (9.4-12.4) 06/05/23 17:40 Immature Gran % (Auto) 0.6 % 06/05/23 17:40 Neut % (Auto) 89.3 % 06/05/23 17:40 Lymph % (Auto) 5.3 % 06/05/23 17:40 Bailey % (Auto) 2.3 % 06/05/23 17:40 Eos % (Auto) 1.4 % 06/05/23 17:40 Baso % (Auto) 1.1 % 06/05/23 17:40 Neut # (Auto) 18.68 K/uL (1.40-6.50) H 06/05/23 17:40 Lymph # (Auto) 1.11 K/uL (1.20-3.40) L 06/05/23 17:40 Bailey # (Auto) 0.48 K/uL (0.11-0.59) 06/05/23 17:40 Eos # (Auto) 0.29 K/uL (0.00-0.50) 06/05/23 17:40 Baso # (Auto) 0.23 K/uL (0.00-0.20) H 06/05/23 17:40 Immature Gran # (Auto) 0.13 K/uL (0.01-0.20) 06/05/23 17:40 PT 11.9 Seconds (9.0-12.0) 06/05/23 21:43 INR 1.1 (0.9-1.1) 06/05/23 21:43 APTT 34 Seconds (21-31) H 06/05/23 21:43 PTT Ratio 1.2 06/05/23 21:43 Heparin Anti-Xa, Unfract 0.38 IU/ml (0.3-0.7) 06/05/23 21:43 Sodium 135 mmol/L (136-145) L 06/05/23 17:40 Potassium 4.6 mmol/L (3.5-5.1) 06/05/23 17:40 Chloride 102 mmol/L (98-107) 06/05/23 17:40 Carbon Dioxide 24 mmol/L (21-32) 06/05/23 17:40 Anion Gap 9 (3-11) 06/05/23 17:40 BUN 25 mg/dl (6-23) H 06/05/23 17:40 Creatinine 1.28 mg/dl (0.6-1.4) 06/05/23 17:40 Est Cr Clr Drug Dosing 58.2 ml/min 06/05/23 17:40 Est GFR ( Amer) 63.0 ml/min 06/05/23 17:40 Est GFR (Non-Af Amer) 54.4 ml/min 06/05/23 17:40 BUN/Creatinine Ratio 19.5 (10-20) 06/05/23 17:40 Glucose 253 mg/dl (70-99(Fasting)) H 06/05/23 17:40 POC Glucose 239 mg/dl (70-99) H 06/06/23 01:43 Calcium 9.7 mg/dl (8.6-10.3) 06/05/23 17:40 Total Bilirubin 1.9 mg/dl (0.2-1.0) H 06/05/23 17:40 AST 17 U/L (13-39) 06/05/23 17:40 ALT 11 U/L (7-52) 06/05/23 17:40 Alkaline Phosphatase 84 U/L (34-104) 06/05/23 17:40 Troponin I High Sens 6.8 pg/ml (0-20) 06/05/23 17:40 Total Protein 7.0 gm/dl (6.0-8.3) 06/05/23 17:40 Albumin 4.2 gm/dl (3.4-5.0) 06/05/23 17:40 Globulin 2.8 gm/dl (2.5-4.0) 06/05/23 17:40 Albumin/Globulin Ratio 1.5 (0.9-2) 06/05/23 17:40 Lipase 55 U/L (11-82) 06/05/23 17:40 Urine Color Dark Yellow 06/05/23 18:19 Urine Appearance Clear (Clear) 06/05/23 18:19 Urine pH 6.5 (4.5-7.5) 06/05/23 18:19 Ur Specific [place] 1.028 (1.000-1.030) 06/05/23 18:19 Urine Protein Negative (Negative) 06/05/23 18:19 Urine Glucose (UA) 3+ (Negative) H 06/05/23 18:19 Urine Ketones Trace (Negative) H 06/05/23 18:19 Urine Blood Negative (Negative) 06/05/23 18:19 Urine Nitrite Negative (Negative) 06/05/23 18:19 Urine Bilirubin Negative (Negative) 06/05/23 18:19 Urine Urobilinogen Negative (Negative) 06/05/23 18:19 Ur Leukocyte Esterase 2+ (Negative) H 06/05/23 18:19 Urine WBC (Auto) 10-30 /hpf (0-5) H 06/05/23 18:19 Urine RBC (Auto) 0-4 /hpf (0-4) 06/05/23 18:19 U Hyaline Cast (Auto) 1-5 /lpf (0-5) 06/05/23 18:19 U Epithel Cells (Auto) 10-20 /lpf (0-5) H 06/05/23 18:19 Urine Bacteria (Auto) Negative (Negative) 06/05/23 18:19 Impressions Chest X-Ray 06/05/23 17:06 SINGLE VIEW CHEST CLINICAL HISTORY: Generalized abdominal pain. FINDINGS: 2 AP, portable, upright chest radiographs are compared to study dated 04/06/2023. The heart is mildly enlarged noting atherosclerotic calcification of the thoracic aorta. Emphysema and chronic interstitial thickening is similar to previous. No airspace consolidation or large pleural effusion is identified. No pneumothorax is seen. The skeletal structures are osteopenic. The bony thorax is grossly intact. Degenerative change is noted in the spine. IMPRESSION: Cardiomegaly and emphysema with no active disease in the chest. ACT 112: Negative or not required by law. Electronically signed by: Piotr Park M.D. 06/05/2023 6:28 PM Abdomen/Pelvis CT 06/05/23 17:17 Exam(s): CT ABDOMEN + PELVIS With Contrast IV Amt: 89ML OPTIRAY 320 EXAM: CT Abdomen and Pelvis With Intravenous Contrast CLINICAL HISTORY: Reason for exam: abd pain. TECHNIQUE: Axial computed tomography images of the abdomen and pelvis with intravenous contrast. CTDI is 24 mGy and DLP is 1254.92 mGy-cm. Automated exposure control was utilized for the study. A dose lowering technique was utilized adhering to the principles of ALARA. CONTRAST: Patient received 89ML OPTIRAY 320 of IV contrast COMPARISON: 02/20/2023 FINDINGS: ABDOMEN: Liver: Unremarkable. Gallbladder and bile ducts: Cholecystectomy. Pancreas: Unremarkable. Spleen: Unremarkable. Adrenals: Unremarkable. Kidneys and ureters: Unremarkable. No obstructing stones. No hydronephrosis. Stomach and bowel: Distended small bowel loops measuring up to 4 cm. The distal small bowel is decompressed. Findings are consistent with small bowel obstruction. Transition point subjacent to the ventral abdominal wall. Ventral hernia containing a knuckle of nonobstructed transverse colon. Intact anastomosis within the rectum. PELVIS: Appendix: No findings to suggest acute appendicitis. Bladder: Unremarkable. Reproductive: Prostate is enlarged measuring 7.2 cm. ABDOMEN and PELVIS: Intraperitoneal space: Unremarkable. No free air. No significant fluid collection. Bones/joints: Degenerative changes within the spine. Soft tissues: See above. Vasculature: Aortobiiliac atherosclerotic calcifications. Lymph nodes: Unremarkable. IMPRESSION: 1. Small bowel obstruction. 2. Ventral hernia containing a knuckle of nonobstructed transverse colon. 3. Prostatomegaly. Electronically signed by: Johnathan Camacho MD 06/05/23 19:35 PM Code Status & VTE Plan Code Status Full code VTE Prophylaxis Plan VTE Prophylaxis will be ordered: Yes PG Care Time/CCT Total # of Minutes Spent Total Time Spent with Patient: Total time spent is greater than 50% in coordination of care (as documented) at patient's floor/unit and/or counseling patient: Coding Level of Care Code 47306 INT INP/OBS CARE 3/75MIN Diagnoses SBO (small bowel obstruction) K56.609 History of bowel resection Z90.49 Paroxysmal atrial fibrillation I48.0 Atrial fibrillation type: paroxysmal History of diverticulitis Z87.19 Hypertension I10 Diabetes mellitus, type 2 E11.9 PAD (peripheral artery disease) I73.9 Sleep apnea G47.30 History of colostomy reversal Z98.890 (3) Atrial fibrillation Atrial fibrillation type: paroxysmal Qualified Code(s): I48.0 - Paroxysmal atrial fibrillation
[2023-06-05] MEDS: ACETAMINOPHEN 1,000 MG/100 ML VIAL IV PRN (22:01)
[2023-06-05] MEDS: PIPERACILLIN/TAZOBACTAM 4.5 GM/100 ML BAG IV STA (22:13)
[2023-06-05] MEDS: Heparin IV Adult Wt-Based Low-Dose *NO* INITIAL Bolus Protocol IV STA (22:14)
[2023-06-05] MEDS: HEPARIN SODIUM/DEXTROSE 25,000 UNITS/500 ML BAG IV SCH (22:14)
[2023-06-05] MEDS: PANTOprazole 40 MG in SYRINGE 0 ML IV STA (22:14)
[2023-06-05 23:15] LABS: ANTI-Xa, UFH(UnfractionatedHep 0.38 IU/ml (0.3-0.7); INR 1.1 (0.9-1.1); Partial Thromboplastin Ratio 1.2; Partial Thromboplastin Time 34 Seconds (21-31); Prothrombin Time 11.9 Seconds (9.0-12.0)
--- OUTSIDE RECORDS SUMMARY | 2023-06-05 23:36 | External Medical Summary | Continuity of Care Document ---
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 Name Role Phone Orlando Dooley Primary Care Physician [phone] Encounter [facility] [id number] Date(s): 05/26/23 - 05/26/23 [facility] [address], [address] [place] [address] [phone] Encounter Diagnosis Status post amputation of toe of right foot(Discharge Diagnosis) - 05/26/23 Discharge Disposition: Home or Self Care Attending Physician: MD Colon Eugene J Referring Physician: MD Angel Christopher Allergies, Adverse Reactions, Alerts No Known Allergies Assessment and Plan Extracted from: Title:Clinical Document Author:SYDNEE Lemus Lynn Date:05/26/23 I OUTPATIENT NOTE Name: JOHN ROBERTSON Patient Number: [id number] : 1950 Date of Service: 05/26/2023 Chief Complaint: _Follow-up for toe amputation HPI: _Mr. Robertson is an elderly male who presents to Dr. Colon's vascular surgery clinic today for a follow-up visit regarding his right fourth toe amputation which occurred over 6 weeks ago at [facility]. Patient states the area has healed well, and he just started wearing regular shoes a few days ago. He denies any pain, swelling, fever, drainage, open areas of the right fourth toe. He continues to deny any claudication type symptoms, but does state to having an occasional area of pain on his right great toe just proximal to his nailbed. He denies any discoloration or lesions to this area. Current Home Meds: (Last Updated 05/26 13:45) albuterol (ProAir HFA 90 mcg/inh inhalation aerosol) 2 puff inhaled qid PRN: as needed for wheezing and cough or equivalent medicine at a cheaper griggs apixaban (Eliquis 5 mg oral tablet) 5 mg PO bid TAKE 1 TABLET BY MOUTH TWICE DAILY atorvastatin (atorvastatin 20 mg oral tablet) TAKE 1 TABLET BY MOUTH AT BEDTIME buPROPion (BuPROPion (Eqv-Wellbutrin SR) 150 mg/12 hours oral tablet, extended release) Take 1 tablet by mouth twice daily ciprofloxacin (Cipro 500 mg oral tablet) 500 mg PO q12h citalopram (citalopram 20 mg oral tablet) Take 1 tablet by mouth once daily diabetic supplies (One Touch Ultra 2 Glucose Monitor) as directed - once a day diabetic supplies (One Touch Ultra Blue Test Strips) test twice a day diabetic supplies (One Touch Delica (33G) Lancets) once a day doxazosin (doxazosin 4 mg oral tablet) Take 1 tablet by mouth once daily ferrous fumarate (ferrous fumarate 324 mg (106 mg elemental iron) oral tablet) 324 mg PO Daily fluticasone/umeclidinium/vilanterol (Trelegy Ellipta 100 mcg-62.5 mcg-25 mcg/inh inhalation powder) 1 puff inhaled Daily levalbuterol (levalbuterol CFC free 45 mcg/inh inhalation aerosol) 2 puff inhaled q4h PRN: as needed for wheezing NOTE: restricted to continuation of home therapy in pediatric patients only. No new starts in house. Yohana Pappas 03/24 13:58 melatonin (Melatonin) 6 mg PO qhs PRN: as needed for insomnia metFORMIN (MetFORMIN (Eqv-Glucophage XR) 500 mg oral tablet, extended release) Take 1 tablet by mouth twice daily metoprolol (Metoprolol Tartrate 50 mg oral tablet) TAKE 1 TABLET BY MOUTH TWICE DAILY montelukast (montelukast 10 mg oral tablet) 10 mg PO qPM traMADol (traMADol 50 mg oral tablet) 50 mg PO q4h PRN: as needed for pain traMADol (traMADol 50 mg oral tablet) 25 mg PO q4h PRN: as needed for pain Allergies and Sensitivities: NKA Past Medical History: Problems: Status post amputation of toe of right foot Toe gangrene Arm pain, left Cervical radiculopathy Paroxysmal atrial fibrillation COPD, mild Diabetic neuropathy Leg length discrepancy Sleep apnea Dyslipidemia DM (diabetes mellitus), type 2 BPH (benign prostatic hyperplasia) Weight disorder Hypertriglyceridemia Hypertensive disorder Depressive disorder OBJECTIVE Vitals: Last Updated 05/26/23 13:47 Date Temp BP Location Pulse RR SpO2 Pain 05/26/23 140/72 Right Arm 77 98 04/30/23 0 04/30/23 132/66 Right Arm 85 98 Vital Signs are the last 3 documented. No Orthostatic Data Available Height and Weight: Last Updated 01/07/22 13:07 Date BMI Wt(kg) Wt(lb) Method Ht(cm) (ft-in) Method 01/07/22 30.23 94.7 208 Standing Scale 177 5-9 09/09/21 97 213 Standing Scale 08/29/21 30.37 95.7 211 Standing Scale 177.5 5-10 Heights and Weights are the last 3 documented. Physical Exam Constitutional: In general patient is a healthy-appearing well-nourished well-developed elderly male no distress. He is alert and oriented any focal deficits. His right fourth toe amputation site is well-healed without any erythema ecchymosis tenderness or discharge. It is well-healed. The remainder of his toes demonstrate brisk capillary refill and are warm and pink with good perfusion. His DP and PT pulses are palpable. ASSESSMENT: _ PLAN: _ 1 ) _status post right fourth toe amputation Patient has done well postop from his right fourth toe amputation. The area is healed well without any complications. At this point he is allowed to wear a regular shoe again, and so he will be able to return to work. Patient requests to return to work next week. A note was written to that effect. He has no restrictions. Will see the patient back on an as-needed basis, as he did not require any arterial revascularization. 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 Patient is agreeable to this plan. He will call with any other questions. Thank you for letting us participate in the care of this patient. Immunizations Given and Recorded Vaccine Date Status Refusal Reason influenza virus vaccine, inactivated 12/22/22 Jorgito rded influenza virus vaccine, inactivated 1 02/27/21 Re corded influenza virus vaccine, inactivated 05/05/19 Jorgito rded influenza virus vaccine, inactivated 05/19/13 Give n SARS-CoV-2 (COVID-19) mRNA BNT-162b2 vax 2 02/27/21 Recorded SARS-CoV-2 (COVID-19) mRNA BNT-162b2 vax 3 07/14/20 Recorded SARS-CoV-2 (COVID-19) mRNA BNT-162b2 vax 4 06/23/20 Recorded zoster vaccine, inactivated 09/14/20 Recorded tetanus/diphtheria/pertuss, acel (Tdap) 5 06/30/17 Recorded tetanus/diphtheria/pertuss, acel (Tdap) 06/25/17 R ecorded pneumococcal 23-valent vaccine 10/20/16 Recorded pneumococcal 13-valent vaccine 10/16/15 Given zoster vaccine live 05/19/13 Given 1Result Comment: [facility] 2Result Comment: [facility] 3Result Comment: 2020-09-11: Historical information-source unspecified 4Result Comment: 2020-09-11: Historical information-source unspecified 5Result Comment: 2020-09-11: Historical information-source unspecified Medications atorvastatin 20 mg oral tablet Start: 06/13/22 7:19:00 EST, See Instructions, Disp# 90 tab, Refills: 3, TAKE 1 TABLET BY MOUTH AT BEDTIME, Pharmacy: [facility] Start Date: 06/13/22 Status: Ordered BuPROPion (Eqv-Wellbutrin SR) 150 mg/12 hours oral tablet, extended release Start: 06/17/22 20:25:00 EST, See Instructions, Disp# 180 tab, Refills: 3, Take 1 tablet by mouth twice daily, Pharmacy: [facility] [address] Start Date: 06/17/22 Status: Ordered citalopram 20 mg oral tablet Start: 04/01/23 8:55:00 EST, See Instructions, Disp# 30 tab, Refills: 0, Take 1 tablet by mouth once daily, Pharmacy: [facility] [address] Start Date: 04/01/23 Status: Ordered doxazosin 4 mg oral tablet Start: 06/02/22 16:41:00 EST, See Instructions, Disp# 90 tab, Refills: 0, Take 1 tablet by mouth once daily, Pharmacy: [facility] Start Date: 06/02/22 Status: Ordered Eliquis 5 mg oral tablet 1 tab, PO, bid, TAKE 1 TABLET BY MOUTH TWICE DAILY Start Date: 03/24/23 Status: Ordered ferrous fumarate 324 mg (106 mg elemental iron) oral tablet Start: 05/26/23 13:44:00 EST, 1 tab, PO, Daily Start Date: 05/26/23 Status: Ordered levalbuterol CFC free 45 mcg/inh inhalation aerosol Start: 03/24/23 13:58:00 EST, 2 puff, inhaled, q4h, PRN: as needed for wheezing Start Date: 03/24/23 Status: Ordered Melatonin Start: 07/04/16 15:22:00, 6 mg =, PO, qhs, PRN: as needed for insomnia Start Date: 07/04/16 Status: Ordered MetFORMIN (Eqv-Glucophage XR) 500 mg oral tablet, extended release Start: 03/13/22 21:23:00 EST, See Instructions, Disp# 180 tab, Refills: 0, Take 1 tablet by mouth twice daily, Pharmacy: [facility] Start Date: 03/13/22 Status: Ordered Metoprolol Tartrate 50 mg oral tablet Start: 09/23/18 8:59:00 EDT, See Instructions, Disp# 180 bottle, Refills: 3, TAKE 1 TABLET BY MOUTHTWICE DAILY, Pharmacy: [facility] Start Date: 09/23/18 Status: Ordered montelukast 10 mg oral tablet Start: 01/07/22 14:35:00 EDT, 1 tab, PO, qPM, Disp# 30 tab, Refills: 3, Pharmacy: [facility] Start Date: 01/07/22 Status: Ordered One Touch Delica (33G) Lancets Start: 06/15/18 15:29:00 EST, See Instructions, Disp# 100 packet, Refills: 0, once a day, Note to Pharmacy: NPI no - [id number], ; E11.9, Pharmacy: [facility] Start Date: 06/15/18 Status: Ordered One Touch Ultra 2 Glucose Monitor Start: 07/24/16 16:02:25, See Instructions, Disp# 100 packet, Refills: 0, as directed - once a day,Note to Pharmacy: NPI no - [id number]; E11.9 Start Date: 07/24/16 Status: Ordered One Touch Ultra Blue Test Strips Start: 09/16/16 10:17:29, See Instructions, Disp# 100 packet, Refills: 5, test twice a day, Note toPharmacy: NPI no - [id number]; E11.9, Pharmacy: [facility] Start Date: 09/16/16 Status: Ordered ProAir HFA 90 mcg/inh inhalation aerosol Start: 09/11/20 16:11:00 EDT, 2 puff, inhaled, qid, Disp# 1 each, or equivalent medicine at a cheaper griggs, PRN: as needed for wheezing and cough, Pharmacy: [facility] Start Date: 09/11/20 Status: Ordered Trelegy Ellipta 100 mcg-62.5 mcg-25 mcg/inh inhalation powder Start: 03/24/23 14:01:00 EST, 1 puff, inhaled, Daily Start Date: 03/24/23 Status: Ordered Mental Status 05/26/23 Barriers to Learning one year None evide nt Mandatory Health Literacy Documentation Yes Health Literacy Communication Barriers N ever Primary Language Maori Problem List Condition Confirmation Course Effective Dates Status Health Status Informant BPH (benign prostatic hyperplasia) Confirmed Active Cervical radiculopathy Confirmed Active Depressive disorder Confirmed Active Diabetic neuropathy Confirmed Active Dyslipidemia Confirmed Active Toe gangrene Confirmed Active Status post amputation of toe of right foot Confirmed Active Hypertensive disorder Confirmed Active Hypertriglyceridemia Confirmed Active Leg length discrepancy Confirmed Active COPD, mild 1 Confirmed Active Arm pain, left 2 Confirmed Active Paroxysmal atrial fibrillation Confirmed Active Sleep apnea 3 Confirmed Active DM (diabetes mellitus), type 2 Confirmed Active Weight disorder Confirmed Active 1PFT - 07/02/17 -- modest response to bronchodilators 2left forearm 3on cpap Diagnosis Diagnosis Type Effective Dates Health Status Clinical Service Informant Status post amputation of toe of right foot Discharge Diagnosis 05/26/23 Procedures Procedure Date Related Diagnosis Body Site Status Chest x-ray 1 01/07/[address] of head 2 12/23/21 Completed X-ray of lumbar spine and sa croiliac joints 3 10/10/20 Completed Plain X-ray of left forearm 4 09/11/20 Completed Diabetic retinal eye exam 5 08/16/20 Completed Colonoscopy 6 03/16/19 Completed Echocardiogram 7 09/15/17 Complete d Chest x-ray 8 5/21/[address] of cervical spine 9 09/14/17 Co mpleted Plain X-ray spine 10 09/14/17 Comp leted PFT 11 07/02/17 Completed History of colon resection 12 Completed 1No acute process 2There is no hemorrhage, mass effect or evidence of acute territorial ischemia by CT criteria. Unremarkable CT angiogram of the neck. Emphysema 3Mild degenerative change as above with no acute bony abnormality identified 4impression: Old fracture within the distal radius and ulnar styloid. No acute fractures identifie within the left forearm 5No diabetic retinopathy 6COLO to cecum, AC polyp hot snared, AC polyp cold snared, TRC poly cold snared, sigmoid polyp cold forceps removed, rectal polyp cold snared. 7normal LV size. borderline concentric LVH Normal LV systolic function. LVEF 55-60%. no regional wall motion abnormalities normal rv size and function trace mitral regurgitation mild left atrial enlargement 8. No acute cardiopulmonary disease 91. No acute cervical spine fracture or subluxation. 2. Moderate multilevel disc space narrowing and osteophytosis and moderate to severe multilevel bony neural foraminal narrowing, as described above. 10. There is no acute bony abnormality identified involving the lumbar spine. 2. Osteopenia and spondylotic change as above. 11Mild obstructive ventilatory defect pronounced at low lung volumes. Modest response to bronchodilator.Early reversible airway disease. 12due to diverticulitis Vital Signs Most recent to oldest [Reference Range]: 1 Heart Rate 77 bpm (05/26/23 1:47 PM) Blood Pressure 140/72mmHg (05/26/23 1:47 PM) Cuff Pulse Pressure 68 mmHg (05/26/23 1:47 PM) BP Location # 1 Right Arm (05/26/23 1:47 PM) Social History Social History Type Response Tobacco 1 Smoking Status Former Smoker, quit > 1 yr Sex Male 89 [employer] yr h/o smoking. quit 1989 [facility] Outpt Note * SYDNEE Lemus, Georgina: PERFORM Event Display: [facility] Out[facility] Note Authored Date: [id number] [facility] OUTPATIENT NOTE Name: JOHN ROBERTSON Patient Number: [id number] : 1950 Date of Service: 05/26/2023 Chief Complaint: _Follow-up for toe amputation HPI: _Mr. Robertson is an elderly male who presents to Dr. Colon's vascular surgery clinic today for a follow-up visit regarding his right fourth toe amputation which occurred over 6 weeks ago at [facility]. Patient states the area has healed well, and he just started wearing regular shoes a few days ago. He denies any pain, swelling, fever, drainage, open areas of the right fourth toe. He continues to deny any claudication type symptoms, but does state to having an occasional area of pain on his right great toe just proximal to his nailbed. He denies any discoloration or lesions to this area. Current Home Meds: (Last Updated 05/26 13:45) albuterol (ProAir HFA 90 mcg/inh inhalation aerosol) 2 puff inhaled qid PRN: as needed for wheezingand cough or equivalent medicine at a cheaper griggs apixaban (Eliquis 5 mg oral tablet) 5 mg PO bid TAKE 1 TABLET BY MOUTH TWICE DAILY atorvastatin (atorvastatin 20 mg oral tablet) TAKE 1 TABLET BY MOUTH AT BEDTIME buPROPion (BuPROPion (Eqv-Wellbutrin SR) 150 mg/12 hours oral tablet, extended release) Take 1 tablet by mouth twice daily ciprofloxacin (Cipro 500 mg oral tablet) 500 mg PO q12h citalopram (citalopram 20 mg oral tablet) Take 1 tablet by mouth once daily diabetic supplies (One Touch Ultra 2 Glucose Monitor) as directed - once a day diabetic supplies (One Touch Ultra Blue Test Strips) test twice a day diabetic supplies (One Touch Delica (33G) Lancets) once a day doxazosin (doxazosin 4 mg oral tablet) Take 1 tablet by mouth once daily ferrous fumarate (ferrous fumarate 324 mg (106 mg elemental iron) oral tablet) 324 mg PO Daily fluticasone/umeclidinium/vilanterol (Trelegy Ellipta 100 mcg-62.5 mcg-25 mcg/inh inhalation powder)1 puff inhaled Daily levalbuterol (levalbuterol CFC free 45 mcg/inh inhalation aerosol) 2 puff inhaled q4h PRN: as needed for wheezing NOTE: restricted to continuation of home therapy in pediatric patients only. No new starts in house. Yohana Pappas 03/24 13:58 melatonin (Melatonin) 6 mg PO qhs PRN: as needed for insomnia metFORMIN (MetFORMIN (Eqv-Glucophage XR) 500 mg oral tablet, extended release) Take 1 tablet by mouth twice daily metoprolol (Metoprolol Tartrate 50 mg oral tablet) TAKE 1 TABLET BY MOUTH TWICE DAILY montelukast (montelukast 10 mg oral tablet) 10 mg PO qPM traMADol (traMADol 50 mg oral tablet) 50 mg PO q4h PRN: as needed for pain traMADol (traMADol 50 mg oral tablet) 25 mg PO q4h PRN: as needed for pain Allergies and Sensitivities: NKA Past Medical History: Problems: Status post amputation of toe of right foot Toe gangrene Arm pain, left Cervical radiculopathy Paroxysmal atrial fibrillation COPD, mild Diabetic neuropathy Leg length discrepancy Sleep apnea Dyslipidemia DM (diabetes mellitus), type 2 BPH (benign prostatic hyperplasia) Weight disorder Hypertriglyceridemia Hypertensive disorder Depressive disorder OBJECTIVE Vitals: Last Updated 05/26/23 13:47 Date Temp BP Location Pulse RR SpO2 Pain 05/26/23 140/72 Right Arm 77 98 04/30/23 0 04/30/23 132/66 Right Arm 85 98 Vital Signs are the last 3 documented. No Orthostatic Data Available Height and Weight: Last Updated 01/07/22 13:07 Date BMI Wt(kg) Wt(lb) Method Ht(cm) (ft-in) Method 01/07/22 30.23 94.7 208 Standing Scale 177 5-9 09/09/21 97 213 Standing Scale 08/29/21 30.37 95.7 211 Standing Scale 177.5 5-10 Heights and Weights are the last 3 documented. Physical Exam Constitutional: In general patient is a healthy-appearing well-nourished well- developed elderly male no distress. He is alert and oriented any focal deficits. His right fourth toe amputation site is well-healed without any erythema ecchymosis tenderness or discharge. It is well-healed. The remainder of his toes demonstrate brisk capillary refill and are warm and pink with good perfusion. His DP and PT pulses are palpable. ASSESSMENT: _ PLAN: _ 1 ) _status post right fourth toe amputation Patient has done well postop from his right fourth toe amputation. The area is healed well without any complications. At this point he is allowed to wear a regular shoe again, and so he will be able to return to work. Patient requests to return to work next week. A note was written to that effect. He has no restrictions. Will see the patient back on an as-needed basis, as he did not require any arterial revascularization. 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 Patient is agreeable to this plan. He will callwith any other questions. Thank you for letting us participate in the care of this patient. Electronic Signature on File CC: Orlando Dooley DO [facility] [address] [facility] [address] * CC: Corry Echeverria, DPNayeli [address] [facility] [address] [facility] [address] Electronically Reviewed/Signed by: Georgina Lemus PA-C Author Signature Dt/Tm:05/26/2023 02:20 PM [facility] [place] [place] [address] Patient Care team information Care Team Personnel Name: SYDNEE Lemus Lynn Position: Physician [employer] Exempt - Vasc Surg Member Role: Lifetime Relationship Address: Address: [address] [place] [id number] Name: DO Dooley Thomas Position: Referring Member Role: Primary Care Provider Address: Address: [address] [address] [place] Care Team Related Persons Name: LIVE HERNANDES Address: home [address] [place], [place] [id number] Name: LIVE HERNANDES Address: home [address] [place], [place] [id number]
[2023-06-06] MEDS ORDERED: DEXTROSE 50% 50 ML SYRINGE IV PRN (01:13)
[2023-06-06] MEDS ORDERED: CARBOHYDRATES FOR HYPOGLYCEMIA PO PRN (01:13)
[2023-06-06] MEDS ORDERED: GLUCOSE 40% GEL 15 GM TUBE PO PRN (01:13)
[2023-06-06] MEDS ORDERED: LEVALBUTEROL TARTRATE 15 GM HFA.AER.AD INH PRN (01:13)
[2023-06-06] MEDS ORDERED: GLUCAGON FOR INJ 1 MG VIAL SQ PRN (01:13)
[2023-06-06] MEDS ORDERED: ALBUT/IPRATROP 3MG/0.5MG NEB 3 ML VIAL NEB PRN (01:13)
[2023-06-06] MEDS ORDERED: GLUCOSE 10 TAB/TUBE PO PRN (01:13)
[2023-06-06] MEDS: LACTATED RINGER'S 1,000 ML IV SCH (01:36)
[2023-06-06] MEDS: ONDANSETRON INJ 2 MG/ML 2 ML VIAL IV PRN (01:36)
[2023-06-06] MEDS: INSULIN ASPART PER UNIT CHARGE SC SCH (01:48)
[2023-06-06 04:54] LABS: Hematocrit (blood only) 50.6 % (42.0-52.0); Hemoglobin 17.9 g/dl (14.0-18.0); Mean Corpuscular Hemoglobin 30.2 pg (25.0-34.0); Mean Corpuscular Hgb Conc 35.4 g/dL (32.0-36.0); Mean Corpuscular Volume 85.5 fL (80.0-100.0); Platelet Count 584 K/uL (130-400); RDW Coefficient of Variation 13.6 % (11.5-14.5); RDW Standard Deviation 42.4 fL (36.4-46.3); Red Blood Count 5.92 M/uL (4.70-6.10); White Blood Count 26.93 K/ul (4.8-10.8)
[2023-06-06 04:57] LABS: Albumin Globulin Ratio 1.7 (0.9-2); Albumin Level 4.2 gm/dl (3.4-5.0); BUN Creatinine Ratio 20.3 (10-20); Bilirubin,Total 2.3 mg/dl (0.2-1.0); Calcium 9.3 mg/dl (8.6-10.3); Creatinine Clr Calc Pharmacy 52.1 ml/min; Est GFR (African American) 55.1 ml/min; Est GFR (Non-African American) 47.6 ml/min; Globulin 2.5 gm/dl (2.5-4.0); Magnesium 1.9 mg/dl (1.7-2.4); Potassium 4.8 mmol/L (3.5-5.1); Total Protein 6.7 gm/dl (6.0-8.3)
[2023-06-06 05:07] LABS: ANTI-Xa, UFH(UnfractionatedHep 0.53 IU/ml (0.3-0.7)
[2023-06-06 05:37] LABS: Basophils # (auto) 0.16 K/uL (0.00-0.20); Basophils % (auto) 0.6 %; Eosinophils # (auto) 0.12 K/uL (0.00-0.50); Eosinophils % (auto) 0.4 %; Immature Granulocytes # (auto) 0.16 K/uL (0.01-0.20); Immature Granulocytes % (auto) 0.6 %; Lymphocytes # (auto) 0.89 K/uL (1.20-3.40); Lymphocytes % (auto) 3.3 %; Monocytes # (auto) 0.68 K/uL (0.11-0.59); Monocytes % (auto) 2.5 %; Neutrophils # (auto) 24.92 K/uL (1.40-6.50); Neutrophils % (auto) 92.6 %
--- NOTE | 2023-06-06 07:06 | Electrocardiogram Report ---
Test Reason : Blood Pressure : / mmHG Vent. Rate : 069 BPM Atrial Rate : 069 BPM P-R Int : 152 ms QRS Dur : 078 ms QT Int : 374 ms P-R-T Axes : 055 020 044 degrees QTc Int : 400 ms Normal sinus rhythm Normal ECG When compared with ECG of 19-FEB-2023 17:09, No significant change was found Confirmed by Damaso Becker ([id number]) on 06/06/2023 7:06:18 AM Referred By: REFERRED SELF Confirmed By:Peterson Becker
[2023-06-06 07:36] LABS: Estimated Average Glucose 186 mg/dl; Hemoglobin A1C 8.1 % (4.5-5.6)
--- NOTE | 2023-06-06 07:55 | Hospitalist Progress Note ---
Date of Service June 06, 2023 Assessment & Plan (1) SBO (small bowel obstruction): (2) Atrial fibrillation: (3) History of bowel resection: (4) History of colostomy reversal: (5) History of diverticulitis: (6) Diabetes mellitus, type 2: (7) Sleep apnea: Plan SBO/Hx bowel resection/Hx colostomy and reversal/Hx diverticulitis: -CT A&P on admission with SBO. -WBC 26.93, CMP on admission WNL. -Symptoms precipitated by large volume ingestion of nuts night prior to admission. -Will keep NPO for now on LR@100ml/hr -Continue Zosyn 4.5g q8h. -Consulted gen surgery. -Tylenol q8h PRN IV, Zofran 4mg q6h PRN nausea, IV pantoprazole 40mg daily. -Will obtain KUB for progress -Once passing flatus and/or stool could try clears. Peripheral arterial disease/hypertension/atrial fibrillation: -Holding apixaban, lisinopril while n.p.o. -Started on heparin gtt low-dose without bolus and follow serially Diabetes mellitus: -Hold metformin -A1c 8.1 -Placed on Accu-Cheks with NovoLog SSI COPD: -Continue Trelegy Ellipta, levalbuterol tartrate every 6 hours as needed -DuoNebs every 2 hours as needed Depression: -While n.p.o., holding bupropion, citalopram, melatonin F/E/N/GI: NPO DVT PPx: SCD Code: Full Dispo: Med/surg Admission and Anticipated Discharge Date Admission Date: June 05, 2023 Supervising Physician Co-Signing Physician Notes Attending Physician Supervision Note: I independently interviewed and examined the patient and verified the herring history and physical, reviewed labs and image studies and agree with findings and care plan noted above. no worsening of nausea. no vomiting. denies abdominal pain. small bm this am. abdomen - soft/diminished BS. nt/nd. SBO - KUB - persistent SBO. Per surgery - continue NPO for time being until better return of bowel function and repeat KUB in the AM. If worsening nausea/vomiting could consider NGT, but okay to hold off for now as no nausea/vomiting. -NPO/IVF -continue heparin gtt currently while eliquis is on hold. Subjective Patient doing well this morning with minimal pain at the R quadrants. Denies any nausea or vomiting, had passed a little bit of stool. No overnight events. Review of Systems Review of Systems: As per HPI. Physical Exam Constitutional: WD/WN, vitals as above Eyes: PERRL, conjunctivae normal, anicteric sclerae Respiratory: normal respiratory effort, lungs clear to auscultation Cardiovascular: RRR, no murmur, no edema Gastrointestinal (Abdomen): BS hypoactive in all 4 quadrants except RUQ, tenderness to palpation in the R mid quadrant, non tender in L quadrants, soft abdomen. Psychiatric: A+Ox3, euthymic affect Results & Data Results & Data Vital Signs (Past 12 Hours) Vital Signs Temp Pulse Pulse Resp BP Pulse Ox O2 Del Method 06/06/23 07:32 36.8 C 75 18 136/79 95 Room Air 06/06/23 01:13 36.7 C 97 H 18 112/65 94 Room Air 06/05/23 22:30 70 16 159/84 H 91 Room Air 06/05/23 22:00 64 16 179/104 H 94 Room Air 06/05/23 21:18 71 06/05/23 20:32 66 17 163/84 H 97 Room Air Resident Activity Tracking Resident Involvement: Resident Care Provided Care Provided: Adult Hospital Medicine (2) Atrial fibrillation Atrial fibrillation type: paroxysmal Qualified Code(s): I48.0 - Paroxysmal atrial fibrillation
[2023-06-06] MEDS ORDERED: NON-FORMULARY MEDICATION (Fluticasone-Umeclidin-Vilanter [Trelegy Ellipta] 100-62.5-25 mcg INH SCH (09:00)
[2023-06-06] MEDS: UMECLIDINIUM/VILANTEROL 62.5/25MCG 7 PUFFS/INHALER INH SCH (09:07)
[2023-06-06] MEDS: FLUTICASONE FUROATE 100MCG 14 PUFFS/INHALER INH SCH (09:08)
--- NOTE | 2023-06-06 11:27 | Surgery Consultation ---
Date of Consultation June 06, 2023 Assessment & Plan (1) SBO (small bowel obstruction): This is a 73yM with a PMH of afib on eliquis, DM2, PAD, history of bowel resection with ostomy reversal 2/2 diverticulitis who presented to the [facility] ED on 06/05/23 with complaints of abdominal pain. Patient states it started in the afternoon yesterday and was so excruciating he rated it an 11/10 in severity. He states it has been intermittent and comes/goes. No bouts of emesis. In the ER he underwent a CT a/p that showed evidence of a small bowel obstruction, along with a ventral hernia containing a knuckle of non-obstructed transverse colon. Patient states he feels a little bit better this AM, but the pain still comes and goes. Labs do show WBC26, Hbg 17, Cr 1.4. Vitals are stable. On exam abdomen softly distended, with some mild generalized discomfort. Recommend keeping patient NPO with IVF. On heparin gtt currently while eliquis is on hold. If worsening nausea/vomiting could consider NGT, but okay to hold off for now as no nausea/vomiting. He had a very small BM this AM, but would keep NPO for time being until better return of bowel function and repeat KUB in the AM. as above. already feeling better. no pain or nausea currently. still some distension. no current need for NGT. will repeat KUB tomorrow. no urgent indication for operative intervention. History of Present Illness Attending Physician: Alaina Frausto MD History of Present Illness This is a 73yM with a PMH of afib on eliquis, DM2, PAD, history of bowel resection with ostomy reversal 2/2 diverticulitis who presented to the [facility] ED on 06/05/23 with complaints of abdominal pain. Patient states it started in the afternoon yesterday and was so excruciating he rated it an 11/10 in severity. He states it has been intermittent and comes/goes. No bouts of emesis. In the ER he underwent a CT a/p that showed evidence of a small bowel obstruction, along with a ventral hernia containing a knuckle of non-obstructed transverse colon. Patient states he feels a little bit better this AM, but the pain still comes and goes. He had a very small BM today. Allergies Allergy/AdvReac Type Severity Reaction Status Date / Time No Known Drug Allergies Allergy NKDA Verified 06/05/23 20:42 Home Medications Medication Instructions Recorded Confirmed Type bupropion HCl 150 mg tablet,12 hr 150 mg PO BID 90 days #180 ea 06/16/22 06/05/23 Rx sustained-release melatonin 3 mg tablet 3 mg PO HS PRN sleep 90 days #90 06/16/22 06/05/23 Rx tabs acetaminophen 500 mg tablet 1,000 mg PO Q6H PRN Pain 07/10/22 06/05/23 History (Tylenol Extra Strength) citalopram 20 mg tablet 20 mg PO QAM 10/23/22 06/05/23 History apixaban 5 mg tablet 5 mg PO BID #180 tabs 11/24/22 06/05/23 Rx tramadol 50 mg tablet 50 mg PO TID PRN pain #30 tabs 02/17/23 06/05/23 Rx doxazosin 4 mg tablet 4 mg PO QPM #90 tabs 03/24/23 06/05/23 Rx levalbuterol tartrate 45 1 puff inhalation Q6H PRN 04/07/23 06/05/23 History mcg/actuation aerosol inhaler Shortness Of Breath Or Wheezing ferrous fumarate 325 mg (106 mg 325 mg PO QAM 05/20/23 06/05/23 History iron) tablet mecobalamin (vitamin B12) 1,000 1,000 mcg PO QAM 05/20/23 06/05/23 History mcg chewable tablet (B12 Active) atorvastatin 80 mg tablet 80 mg PO QAM 06/05/23 06/05/23 History fluticasone fur. 100 mcg-umeclid 1 inh inhalation QAM 06/05/23 06/05/23 History 62.5 mcg-vilant 25 mcg inhalat.powder (Trelegy Ellipta) lisinopril 2.5 mg tablet 2.5 mg PO QAM 06/05/23 06/05/23 History metformin 500 mg tablet 500 mg PO BID 06/05/23 06/05/23 History Patient History Medical History Hypertension Diabetes mellitus, type 2 PAD (peripheral artery disease) Atrial fibrillation Follows with [facility] cardio Transient ischemic attack Per records Diabetic neuropathy Thrombocytosis Chronic, baseline platelets 500s for past 1+ year Leukocytosis Chronic x 1+ year Pulmonary nodule Under surveillance Hyperbilirubinemia History of diverticulitis History of cholelithiasis Anxiety Osteoarthritis HLD (hyperlipidemia) Sleep apnea CPAP Weak urinary stream Urinary urgency Surgical History History of cardioversion Approximately 2018 History of wisdom tooth extraction History of tonsillectomy History of cataract surgery R/L Status post colostomy History of colostomy reversal History of bowel resection History of colonoscopy Family History Father Myocardial infarction Grandfather (Maternal) Myocardial infarction Other Hearing loss Heart disease Hypertension No family history of adverse response to anesthesia No family history of bleeding disorder Denies family history of Ovarian cancer Prostate cancer Breast cancer Lung cancer Colorectal cancer Social History Smoking Status: Former smoker Tobacco Type: Cigarettes Second Hand Exposure: Yes (as a child); Do You Dip or Chew Tobacco: No; Hx Alcohol Use: No Hx Substance Use: No Preferred Language: Moldovan Communication Ability: Effective Visual Impairment: Limited Hearing Ability: Normal 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 Weapons System Required: No Beliefs That Will Affect Care: None marital status: Single Current Living Situation: Spouse current occupational status: employed 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 Feels Safe at Home: Yes Safety Concerns: Feels Safe At This Time Childhood Exposure to Second-Hand Smoke: No Diet: regular caffeine: No Dental Care, Regularly: Yes Physical Activity Frequency: Daily Seatbelt Use: always Sunscreen Use: No Assistive Devices: Glasses Review of Systems Constitutional: no fever and no chills Gastrointestinal: + abdominal pain and + constipation; no vomiting + abdominal pain Physical Exam Physical Exam: awake/alert, no distress Respiratory: normal respiratory effort Gastrointestinal (Abdomen): Inspection/Auscultation: + abdomen distended (mild) and + abdominal surgical scar (midline) Percussion/Palpation: + abdomen tender (mild) and abdomen soft + R para midline hernia noted, not incar cerated Results & Data Vital Signs (Past 12 Hours) Vital Signs Temp Pulse Resp BP Pulse Ox O2 Del Method 06/06/23 07:32 98.2 F 75 18 136/79 95 Room Air 06/06/23 01:13 98.1 F 97 H 18 112/65 94 Room Air Diagnostic Findings Exam(s): CT ABDOMEN + PELVIS With Contrast IV Amt: 89ML OPTIRAY 320 EXAM: CT Abdomen and Pelvis With Intravenous Contrast CLINICAL HISTORY: Reason for exam: abd pain. TECHNIQUE: Axial computed tomography images of the abdomen and pelvis with intravenous contrast. CTDI is 24 mGy and DLP is 1254.92 mGy-cm. Automated exposure control was utilized for the study. A dose lowering technique was utilized adhering to the principles of ALARA. CONTRAST: Patient received 89ML OPTIRAY 320 of IV contrast COMPARISON: 02/20/2023 FINDINGS: ABDOMEN: Liver: Unremarkable. Gallbladder and bile ducts: Cholecystectomy. Pancreas: Unremarkable. Spleen: Unremarkable. Adrenals: Unremarkable. Kidneys and ureters: Unremarkable. No obstructing stones. No hydronephrosis. Stomach and bowel: Distended small bowel loops measuring up to 4 cm. The distal small bowel is decompressed. Findings are consistent with small bowel obstruction. Transition point subjacent to the ventral abdominal wall. Ventral hernia containing a knuckle of nonobstructed transverse colon. Intact anastomosis within the rectum. PELVIS: Appendix: No findings to suggest acute appendicitis. Bladder: Unremarkable. Reproductive: Prostate is enlarged measuring 7.2 cm. ABDOMEN and PELVIS: Intraperitoneal space: Unremarkable. No free air. No significant fluid collection. Bones/joints: Degenerative changes within the spine. Soft tissues: See above. Vasculature: Aortobiiliac atherosclerotic calcifications. Lymph nodes: Unremarkable. IMPRESSION: 1. Small bowel obstruction. 2. Ventral hernia containing a knuckle of nonobstructed transverse colon. 3. Prostatomegaly. Electronically signed by: Johnathan Camacho MD 06/05/23 19:35 PM PG Care Time/CCT Total # of Minutes Spent Total Time Spent with Patient: Total time spent is greater than 50% in coordination of care (as documented) at patient's floor/unit and/or counseling patient: Coding Level of Care Code 01148 INT INP/OBS CARE 2/55MIN Diagnoses SBO (small bowel obstruction) K56.609
--- NOTE | 2023-06-06 11:57 | XRay Report ---
KUB CLINICAL HISTORY: Small bowel obstruction. FINDINGS: 3 AP, portable, supine abdominal radiographs are correlated with abdominal CT dated 4. Cholecystectomy clips are noted in the right upper quadrant. Surgical clips also project over the left lower quadrant. Gaseous distention of the small bowel loops is consistent with persistent obstru ction. No evidence of intraperitoneal free air is seen on these supine images. There are no abnormal abdominal calcifications. Excreted IV contrast fills the bladder. The skeletal structures are osteope christoph and appear intact. There is moderate to advanced lumbosacral spondylosis. IMPRESSION: Persistent small bowel obstruction. This is likely similar to yesterday's CT scan. Electronically signed by: Piotr Park M.D. 06/06/2023 11:54 AM
[2023-06-06] MEDS: ONDANSETRON INJ 2 MG/ML 2 ML VIAL IV STA (12:19)
[2023-06-06] MEDS: PANTOprazole 40 MG in SYRINGE 0 ML IV SCH (12:32)
[2023-06-06] MEDS: MELATONIN 3 MG TAB PO PRN (19:56)
--- NOTE | 2023-06-07 06:35 | Hospitalist Progress Note ---
Date of Service June 07, 2023 Assessment & Plan (1) SBO (small bowel obstruction): (2) Atrial fibrillation: (3) History of bowel resection: (4) History of colostomy reversal: (5) History of diverticulitis: (6) Diabetes mellitus, type 2: (7) Sleep apnea: Plan SBO/Hx bowel resection/Hx colostomy and reversal/Hx diverticulitis: -CT A&P on admission with SBO. -WBC 26.93, CMP on admission WNL. -Symptoms precipitated by large volume ingestion of nuts night prior to admission. -Continue Zosyn 4.5g q8h. -Consulted gen surgery - can trial full liquid diet. -On LR@100ml/hr, can stop if tolerating diet well. -Tylenol q8h PRN IV, Zofran 4mg q6h PRN nausea, IV pantoprazole 40mg daily. -KUB from this AM w/ interval improvement. -Now that patient passing gas can start liquid diet. Peripheral arterial disease/hypertension/atrial fibrillation: -Will transition to home Eliquis tonight from heparin gtt now that patient has diet. -Can restart atorvastatin and lisinopril if tolerating diet well. Diabetes mellitus: -Hold metformin -A1c 8.1 -Placed on Accu-Cheks with NovoLog SSI COPD: -Continue Trelegy Ellipta, levalbuterol tartrate every 6 hours as needed -DuoNebs every 2 hours as needed Depression: -Can restart bupropion, citalopram, melatonin if tolerating diet well. F/E/N/GI: Full liquid DVT PPx: SCD, Heparin -> Eliquis Code: Full Dispo: Med/surg Admission and Anticipated Discharge Date Admission Date: June 05, 2023 Supervising Physician Co-Signing Physician Notes Attending Physician Supervision Note: I independently interviewed and examined the patient and verified the herring histo ry and physical, reviewed labs and image studies and agree with findings and care plan noted above. passing flatus. pain improved. overall feeling better abdomen - soft/diminished BS. nt/nd. SBO - . diet adance to full liquid by surgery. follow -continue heparin gtt currently while eliquis is on hold - if tolerating PO well today - transition back to eliquis in am. Subjective Patient doing better this morning, states discomfort/pain has gone down and he is now passing gas. Denies nausea, vomiting. No overnight events. Review of Systems Review of Systems: As per HPI. Physical Exam Constitutional: WD/WN, vitals as above Eyes: PERRL, conjunctivae normal, anicteric sclerae Respiratory: normal respiratory effort, lungs clear to auscultation Cardiovascular: RRR, no murmur, no edema Gastrointestinal (Abdomen): improved BS however still hypoactive. TTP right quadrant, non tender left quadrant. Soft, non distended. Psychiatric: A+Ox3, euthymic affect Results & Data Results & Data Vital Signs (Past 12 Hours) Vital Signs Pulse Resp BP Pulse Ox O2 Del Method 06/06/23 20:07 90 16 149/70 H 95 Room Air 06/06/23 19:55 Room Air Resident Activity Tracking Resident Involvement: Resident Care Provided Care Provided: Adult Hospital Medicine (2) Atrial fibrillation Atrial fibrillation type: paroxysmal Qualified Code(s): I48.0 - Paroxysmal atrial fibrillation
[2023-06-07 06:36] LABS: Basophils # (auto) 0.15 K/uL (0.00-0.20); Basophils % (auto) 0.9 %; Eosinophils # (auto) 0.58 K/uL (0.00-0.50); Eosinophils % (auto) 3.6 %; Hematocrit (blood only) 52.4 % (42.0-52.0); Hemoglobin 17.5 g/dl (14.0-18.0); Immature Granulocytes # (auto) 0.08 K/uL (0.01-0.20); Immature Granulocytes % (auto) 0.5 %; Lymphocytes # (auto) 1.53 K/uL (1.20-3.40); Lymphocytes % (auto) 9.6 %; Mean Corpuscular Hemoglobin 29.6 pg (25.0-34.0); Mean Corpuscular Hgb Conc 33.4 g/dL (32.0-36.0); Mean Corpuscular Volume 88.5 fL (80.0-100.0); Mean Platelet Volume 9.9 fL (9.4-12.4); Monocytes # (auto) 0.52 K/uL (0.11-0.59); Monocytes % (auto) 3.3 %; Neutrophils # (auto) 13.12 K/uL (1.40-6.50); Neutrophils % (auto) 82.1 %; Platelet Count 524 K/uL (130-400); RDW Standard Deviation 44.8 fL (36.4-46.3); Red Blood Count 5.92 M/uL (4.70-6.10); White Blood Count 15.98 K/ul (4.8-10.8)
[2023-06-07 07:10] LABS: Albumin Globulin Ratio 1.5 (0.9-2); Albumin Level 4.1 gm/dl (3.4-5.0); BUN Creatinine Ratio 14.4 (10-20); Bilirubin,Total 2.8 mg/dl (0.2-1.0); Calcium 9.2 mg/dl (8.6-10.3); Creatinine Clr Calc Pharmacy 59.6 ml/min; Est GFR (African American) 64.9 ml/min; Globulin 2.7 gm/dl (2.5-4.0); Magnesium 1.9 mg/dl (1.7-2.4); Potassium 4.6 mmol/L (3.5-5.1); Total Protein 6.8 gm/dl (6.0-8.3)
[2023-06-07 07:33] LABS: ANTI-Xa, UFH(UnfractionatedHep 0.36 IU/ml (0.3-0.7)
--- NOTE | 2023-06-07 09:22 | XRay Report ---
KUB CLINICAL HISTORY: eval bowel/gas pattern COMPARISON STUDY: CT of the abdomen and pelvis June 05, 2023. KUB June 06, 2023. FINDINGS: There are cholecystectomy clips. Small bowel dilatation shown on prior KUB and CT has impro zakiya. No evidence for free air on supine exam. IMPRESSION: Interval improvement in small bowel dilatation. This favors an improving small bowel obs truction although fluid-filled small bowel loops may be radiographically occult. ACT 112: Negative or not required by law. Electronically signed by: Nate Payan M.D. 06/07/2023 9:21 AM
--- NOTE | 2023-06-07 11:29 | Surgery Progress Note ---
Date of Service June 07, 2023 Assessment & Plan (1) SBO (small bowel obstruction): Plan: Pt feeling better than yesterday Had small BM today No N/V KUB showing Improvement in SBO Will start on full liquids and see how he tolerates Instructed to go slow WBC 15 down from [address] Turner As above. Doing well. Clinically and radiographically improving. Will advance diet. Discharge planning. No indication for surgical intervention. Admission and Anticipated Discharge Date Admission Date: June 05, 2023 Subjective Pt feeling better than yesterday Had small BM today No N/V Review of Systems Constitutional: no fever and no chills Gastrointestinal: + abdominal pain (mild); no nausea and n o vomiting Musculoskeletal: no muscle weakness Physical Exam Physical Exam: alert oriented Constitutional: cooperative and comfortable; no acute distress Gastrointestinal (Abdomen): Percussion/Palpation: + abdomen tender and abdomen soft Results & Data Vital Signs (Past 12 Hours) Vital Signs Temp Pulse Resp BP Pulse Ox O2 Del Method 06/07/23 08:21 97.2 F L 67 18 153/80 H 94 Room Air PG Care Time/CCT Total # of Minutes Spent Total Time Spent with Patient: Total time spent is greater than 50% in coordination of care (as documented) at patient's floor/unit and/or counseling patient: Coding Level of Care Code 86269 SUB INP/OBS CARE 05/21MIN Diagnoses SBO (small bowel obstruction) K56.609
[2023-06-07] MEDS ORDERED: Nursing to Pharmacy Communication SCH (11:30)
[2023-06-07] MEDS: INSULIN ASPART PER UNIT CHARGE SC SCH (17:43)
[2023-06-07] MEDS: STOP HEPARIN ONE (21:40)
[2023-06-07] MEDS: APIXABAN 5 MG TABLET PO SCH (21:44)
[2023-06-08] MEDS: MELATONIN 3 MG TAB PO ONE (04:25)
[2023-06-08 07:11] LABS: Basophils # (auto) 0.17 K/uL (0.00-0.20); Basophils % (auto) 1.2 %; Eosinophils # (auto) 0.51 K/uL (0.00-0.50); Eosinophils % (auto) 3.7 %; Hematocrit (blood only) 48.2 % (42.0-52.0); Immature Granulocytes # (auto) 0.06 K/uL (0.01-0.20); Immature Granulocytes % (auto) 0.4 %; Lymphocytes # (auto) 1.54 K/uL (1.20-3.40); Lymphocytes % (auto) 11.2 %; Mean Corpuscular Hgb Conc 35.3 g/dL (32.0-36.0); Mean Corpuscular Volume 85.2 fL (80.0-100.0); Mean Platelet Volume 9.6 fL (9.4-12.4); Monocytes # (auto) 0.49 K/uL (0.11-0.59); Monocytes % (auto) 3.6 %; Neutrophils # (auto) 10.93 K/uL (1.40-6.50); Neutrophils % (auto) 79.9 %; Platelet Count 539 K/uL (130-400); RDW Coefficient of Variation 13.7 % (11.5-14.5); RDW Standard Deviation 42.4 fL (36.4-46.3); Red Blood Count 5.66 M/uL (4.70-6.10)
[2023-06-08 07:32] LABS: Albumin Globulin Ratio 1.5 (0.9-2); Albumin Level 3.8 gm/dl (3.4-5.0); Bilirubin,Total 1.8 mg/dl (0.2-1.0); Calcium 8.8 mg/dl (8.6-10.3); Creatinine Clr Calc Pharmacy 74.6 ml/min; Est GFR (Non-African American) 73.3 ml/min; Globulin 2.5 gm/dl (2.5-4.0); Magnesium 1.8 mg/dl (1.7-2.4); Potassium 3.9 mmol/L (3.5-5.1); Total Protein 6.3 gm/dl (6.0-8.3)
--- NOTE | 2023-06-08 11:42 | Surgery Progress Note ---
Date of Service June 08, 2023 Assessment & Plan (1) SBO (small bowel obstruction): Plan: clinically doing well. [place] diet. ok for d/c from my standpoint. Admission and Anticipated Discharge Date Admission Date: June 05, 2023 Subjective pt seen. feeling well. [place] diet. no pain or nausea Physical Exam Physical Exam: alert. nad abd: soft. nt/nd. Results & Data Vital Signs (Past 12 Hours) Vital Signs Temp Pulse Resp BP Pulse Ox O2 Del Method 06/08/23 08:14 36.5 C 60 19 147/70 H 96 Room Air PG Care Time/CCT Total # of Minutes Spent Total Time Spent with Patient: Total time spent is greater than 50% in coordination of care (as documented) at patient's floor/unit and/or counseling patient: Coding Level of Care Code 89329 SUB INP/OBS CARE 1/25MIN Diagnoses SBO (small bowel obstruction) K56.609
--- NOTE | 2023-06-08 12:28 | Discharge Summary ---
Date of Service June 08, 2023 Admission HPI Per Admitting Provider The patient is a 73-year-old male with a past medical history including diabetic foot infection, osteomyelitis, sleep apnea, hyperlipidemia, depression, hypertension, and PAD on apixaban. He presents to the emergency department with abdominal pain after eating excessive on the PA-C previous evening. CT scan of abdomen pelvis consistent with small bowel obstruction. From the ED patient received normal saline 1 L and fentanyl 50 mcg IV. Patient reports history of abdominal surgeries, including placement of a colostomy, and later reversal. Admission Exam Per Admitting Provider The patient is awake, alert and oriented 3, well developed and well nourished, normocephalic and atraumatic, lying in bed and in no acute distress. HEENT--PERRL, EOMI, mucous membranes and oropharynx mildly dry. Neck--supple. No JVD. No bruits. Thyroid normal, trachea midline, no adenopathy. Heart--normal S1 and S2. No murmurs, rubs or gallops. Lungs--clear bilaterally, no respiratory distress, no accessory muscle use. Abdomen--decreased bowel sounds. Generalized tenderness. Mildly distended Extremities--No edema. There are good distal pulses b/l. Dermatologic--normal skin turgor, normal color, no abnormal lymph nodes, no rash. Neurologic--cranial nerves II through XII grossly intact. Rheumatologic--normal range of motion. Psychiatric--normal affect. Principal Diagnosis SBO Discharge Exam Gen: well appearing patient in NAD HEENT: AT NC MMM Resp: CTAB no wheezing no increased work of breathing CV: RRR no m/r/g no edema clinically well perfused Abd: soft, minimally tender, decreased distention MSK: no obvious deformities Skin: no rashes or bruising Neuro: alert and oriented Psych: appropriate mood and affect Discharge Data Allergies Allergy/AdvReac Type Severity Reaction Status Date / Time No Known Drug Allergies Allergy NKDA Verified 06/05/23 20:42 Consultations 06/05/23 20:13 ED Decision to Admit Stat 06/06/23 01:13 Consult General Surgery Routine Ordered Studies Chest X-Ray 06/05/23 17:06 FINDINGS: 2 AP, portable, upright chest radiographs are compared to study dated 04/06/2023. The heart is mildly enlarged noting atherosclerotic calcification of the thoracic aorta. Emphysema and chronic interstitial thickening is similar to previous. No airspace consolidation or large pleural effusion is identified. No pneumothorax is seen. The skeletal structures are osteopenic. The bony thorax is grossly intact. Degenerative change is noted in the spine. IMPRESSION: Cardiomegaly and emphysema with no active disease in the chest. Abdomen/Pelvis CT 06/05/23 17:17 FINDINGS: ABDOMEN: Liver: Unremarkable. Gallbladder and bile ducts: Cholecystectomy. Pancreas: Unremarkable. Spleen: Unremarkable. Adrenals: Unremarkable. Kidneys and ureters: Unremarkable. No obstructing stones. No hydronephrosis. Stomach and bowel: Distended small bowel loops measuring up to 4 cm. The distal small bowel is decompressed. Findings are consistent with small bowel obstruction. Transition point subjacent to the ventral abdominal wall. Ventral hernia containing a knuckle of nonobstructed transverse colon. Intact anastomosis within the rectum. PELVIS: Appendix: No findings to suggest acute appendicitis. Bladder: Unremarkable. Reproductive: Prostate is enlarged measuring 7.2 cm. ABDOMEN and PELVIS: Intraperitoneal space: Unremarkable. No free air. No significant fluid collection. Bones/joints: Degenerative changes within the spine. Soft tissues: See above. Vasculature: Aortobiiliac atherosclerotic calcifications. Lymph nodes: Unremarkable. IMPRESSION: 1. Small bowel obstruction. 2. Ventral hernia containing a knuckle of nonobstructed transverse colon. 3. Prostatomegaly. KUB X-Ray 06/06/23 11:03 FINDINGS: 3 AP, portable, supine abdominal radiographs are correlated with abdominal CT dated 06/05/2023. Cholecystectomy clips are noted in the right upper quadrant. Surgical clips also project over the left lower quadrant. Gaseous distention of the small bowel loops is consistent with persistent obstruction. No evidence of intraperitoneal free air is seen on these supine images. There are no abnormal abdominal calcifications. Excreted IV contrast fills the bladder. The skeletal structures are osteopenic and appear intact. There is moderate to advanced lumbosacral spondylosis. IMPRESSION: Persistent small bowel obstruction. This is likely similar to yesterday's CT scan. KUB X-Ray 06/07/23 06:00 FINDINGS: There are cholecystectomy clips. Small bowel dilatation shown on prior KUB and CT has improved. No evidence for free air on supine exam. IMPRESSION: Interval improvement in small bowel dilatation. This favors an improving small bowel obstruction although fluid-filled small bowel loops may be radiographically occult. Hospital Course (1) SBO (small bowel obstruction): (2) Atrial fibrillation: (3) History of bowel resection: (4) History of colostomy reversal: (5) History of diverticulitis: (6) Diabetes mellitus, type 2: (7) Sleep apnea: Plan SBO/Hx bowel resection/Hx colostomy and reversal/Hx diverticulitis: Symptoms precipitated by large volume ingestion of nuts night prior to admission. CT A&P on admission with SBO. Leukocytosis downtrending. Fluids were run while NPO. Gen surgery consulted - recommended conservative management with bowel rest, pantoprazole, Zofran, and Tylenol. KUB with interval improvement. Advancement of diet was tolerated well. Recommend low fiber diet for now. Peripheral arterial disease/hypertension/atrial fibrillation: Initially held Eliquis in setting of NPO. Back on home Eliquis, atorvastatin and lisinopril Diabetes mellitus: A1c 8.1. SSI while inpatient. Resume home metformin. COPD: Continue Trelegy Ellipta, levalbuterol tartrate every 6 hours as needed. DuoNebs every 2 hours as needed Depression: Meds held while NPO. Resumed on discharge Total Time Total Time Spent Total Time Spent (In Minutes): <30 Discharge Plan Discharge Items Patient Disposition: Home - Self-Care Reason For Visit: SBO Discharge Diagnosis: SBO Activity: Per Instructions section Non-emergency contact: Primary Care Provider Call non-emergency contact if: you have any medication questions, your pain is not controlled and your rectal temperature is above 100.4 Follow-up/Referrals: Orlando Dooley DO [Primary Care Provider] - 06/16/23 3:45 pm Diet: Carb Consistent or DM2 and Low Fiber Addtl Attending Provider Instructions: You were admitted to the hospital for a small bowel obstruction. You improved with IV fluids and bowel rest. We advanced your diet and you tolerated this well. A discharge summary will be sent to your primary care physician to ensure continuity of care. Please bring this discharge summary with you to your next office appointment so that your provider can review it at that time. Follow-up appointments: Make a follow-up appointment with your PCP within the next week. It is very important that you follow up with them shortly after discharge from the hospital. Medications: Your medication list has been reviewed and reconciled upon discharge to ensure accuracy and continuity of care. An updated list of all your medications is included with your hospital discharge paperwork. Please review this list closely, and make note of any changes. Take your medications as instructed; do not skip a dose of your medicines. Make sure all of your doctors know every medicine you are taking (including [id number] medicines, vitamins, and supplements). Call your primary care provider before taking any new medicines (including over- the-counter medicines, vitamins, and supplements), because some of these may interact with your current medications, or may make your symptoms worse. Tell your primary care provider if you cannot afford your medications. CONTACT YOUR PRIMARY CARE PROVIDER if you experience any of the following: nausea or vomiting worsening pain Difficulty following your treatment plan, or difficulty taking medications CALL 911 OR GO TO THE EMERGENCY DEPARTMENT if you experience any of the following: Sudden, severe abdominal pain or nausea/vomiting Severe chest pain, or chest pain that radiates (moves) to your jaw or arm Sudden, severe shortness of breath or difficulty breathing Thank you for allowing us to participate in your care Pending Studies at Discharge: No Stand-Alone Forms: [facility], Work/School Release, Smoking Cessation Medications and DC Order Prescriptions: Continued melatonin 3 mg tablet 3 mg PO HS PRN (Reason: sleep) 90 Days Qty: 90 3RF bupropion HCl 150 mg tablet sustained-release 12 hr 150 mg PO BID 90 Days Qty: 180 3RF apixaban 5 mg tablet 5 mg PO BID Qty: 180 3RF doxazosin 4 mg tablet 4 mg PO QPM Qty: 90 1RF ferrous fumarate 325 mg (106 mg iron) tablet 325 mg PO QAM mecobalamin (vitamin B12) [B12 Active] 1,000 mcg tablet,chewable 1,000 mcg PO QAM tramadol 50 mg tablet 50 mg PO TID PRN (Reason: pain) Qty: 30 0RF acetaminophen [Tylenol Extra Strength] 500 mg Tablet 1,000 mg PO Q6H PRN (Reason: Pain) citalopram 20 mg tablet 20 mg PO QAM levalbuterol tartrate 45 mcg/actuation HFA aerosol inhaler 1 puff inhalation Q6H PRN (Reason: Shortness Of Breath Or Wheezing) Patient Comments: uses prn metformin 500 mg tablet 500 mg PO BID Rx Instructions: Take 1 tablet by mouth twice daily atorvastatin 80 mg tablet 80 mg PO QAM Patient Comments: "stopped taking, I think" not sure lisinopril 2.5 mg tablet 2.5 mg PO QAM Trelegy Ellipta 100-62.5-25 mcg blister with device 1 inh inhalation QAM Discharge Orders: Discharge Order (Routine); Ordered 06/08/23 Ordered By: Mar Jain/Other Patient Handouts: Low-Fiber Diet, Managing Type 2 Diabetes Admission Data Admit Date/Time: 06/05/23 21:06 Attending Provider: Tato Westbrook Admit Provider: Jorgito Lopez Primary Care Provider: Orlando Dooley Other Providers: Jorgito Lopez; Dash Turner. Other Interventions: Discharge Summary Assessment (RN) Last Done: 06/08/23 15:35 Supervising Physician Co-Signing Physician Notes I personally examined the patient and verified all herring points of history and exam, discussed case, and agree with decision making with Dr Arnett Feeling better. Belly better. Eating better. Feels up to going home. Surgery input appreciated. Vitals noted, in general he is awake and alert pleasant no distress. HEENT normocephalic atraumatic mucous membranes moist. Breathing unlabored no accessory muscle use good effort. Skin shows no rashes no pallor or icterus. Neuro without focal deficits. Small bowel obstructionimproved, safe/stable for home. Outpatient follow-up. Otherwise as above. Resident Activity Tracking Resident Involvement: Resident Care Provided Care Provided: Adult Hospital Medicine
--- NOTE | 2023-06-08 18:51 | Billing Data ---
Date of Service June 08, 2023 Coding Level of Care Code 03705 IN/OBS DISCH 30 MIN/LESS
[2023-06-09] MEDS ORDERED: PANTOprazole 40 MG TAB PO SCH (11:00)
== END 2023-06-08 18:05 | disposition home or self-care (01) | DRG 390 ==
LOC: ED 16:48 → SUATTDRO 21:06 → 3W 21:06